=== PATIENT | male | born 1945 | race Caucasian/White ===

== ENCOUNTER → 2018-05-05 09:22 | Outpatient (CLI) | payer OTHER, SELFPAY ==
[2018-05-05 10:18] LABS: Add Manual Diff / Slide Review NO; Basophils Percent Auto 0.9 % (0-2); Eosinophils Percent Auto 5.5 % (2-4); Hematocrit 50.8 % (41-53); Lymphocytes Percent Auto 28.7 % (25-40); Mean Corpuscular HGB Conc 33.4 % (30-36); Mean Corpuscular Hemoglobin 32.5 PG (26-34); Mean Corpuscular Volume 97.2 fL (80-100); Monocytes Percent Auto 13.8 % (3-14); Neutrophils Absolute Auto 2400 /uL (3000-5900); Neutrophils Percent Auto 51.1 % (50-75); Platelet Count 156 X10^3/uL (150-400); Red Blood Cell Count 5.23 X10^6/uL (4.5-5.9); Red Cell Distribution Width 13.7 % (11.6-14.8); White Blood Cell Count 4.6 X10^3/uL (4.5-11.0)
[2018-05-05 10:21] LABS: Alanine Aminotransferase 52 IU/L (21-72); Albumin 4.3 g/dL (3.5-5.0); Albumin Globulin Ratio 1.5 (1.0-2.8); Alkaline Phosphatase 87 U/L (38-126); Aspartate Aminotransferase 48 IU/L (17-59); BUN Creatinine Ratio 26.3 (6-22); Bilirubin Total 0.6 mg/dL (0.2-1.3); Blood Urea Nitrogen 21 mg/dL (9-20); Calcium 9.5 mg/dL (8.4-10.2); Carbon Dioxide 23 mmol/L (22-32); Chloride 108 mmol/L (98-107); Estimated Glomerular Filt Rate > 60.0 mL/min (>60); Gamma Glutamyl Transpeptidase 62 U/L (15-73); Globulin 2.8 g/dL (1.7-4.1); Glucose 93 mg/dL (80-110); HEMOLYSIS < 15 (0-50); Potassium 4.1 mmol/L (3.4-5.1); Sodium 143 mmol/L (137-145); Total Protein 7.1 g/dL (6.3-8.2)
[2018-05-05 10:25] LABS: High Sensitivity CRP - Cardiac 2.9 mg/L (1.0-3.0)
[2018-05-05 10:37] LABS: B Type Natriuretic Peptide < 100.0 (<100)
[2018-05-05 10:44] LABS: Hemoglobin A1C% w Est Avg Glu 5.1 % (4.0-6.0)
[2018-05-05 10:50] LABS: Fibrinogen 286 mg/dL (211-428)
[2018-05-05 15:23] LABS: Microalbumi Creatinin Ratio Ur 6.3 ug/mg CR (<30); Microalbumin Urine Random 1.6 mg/dL (0-1.6)
[2018-05-06 15:27] LABS: Estradiol 41 pg/mL (< 40)
[2018-05-07 11:01] LABS: Albumin 4.4 g/dL (3.6-5.1); Sex Hormone Binding Globulin 32 nmol/L (22-77); Testosterone, Bioavailable 252.3 ng/dL (15.0-150.0); Testosterone, Total 811 ng/dL (250-1100); Testosterone,Free 125.3 pg/mL (6.0-73.0)
[2018-05-07 14:56] LABS: Dehydroepiandrosterone Sulfate 19 mcg/dL (5-253)
== END ==
PROVIDERS: PCP Family Medicine Sports Medicine; Visit Provider Family Medicine Sports Medicine
DX: M79.7 Fibromyalgia (principal); I10 Essential (primary) hypertension; R73.01 Impaired fasting glucose; I25.10 Atherosclerotic heart disease of native coronary artery without angina pectoris; E29.1 Testicular hypofunction; R74.0 Nonspecific elevation of levels of transaminase and lactic acid dehydrogenase [LDH]
CPT/HCPCS: 36415; 80053; 82040; 82043; 82570; 82627; 82670; 82977; 83036; 83880; 84270; 84403; 85025; 85384; 86140

== ENCOUNTER → 2018-08-06 07:01 | Outpatient (CLI) | payer OTHER, SELFPAY ==
[2018-08-06 09:37] LABS: Alanine Aminotransferase 42 IU/L (21-72); Albumin 4.1 g/dL (3.5-5.0); Albumin Globulin Ratio 1.7 (1.0-2.8); Alkaline Phosphatase 59 U/L (38-126); Aspartate Aminotransferase 44 IU/L (17-59); Bilirubin Total 0.5 mg/dL (0.2-1.3); Blood Urea Nitrogen 18 mg/dL (9-20); Calcium 9.5 mg/dL (8.4-10.2); Carbon Dioxide 26 mmol/L (22-32); Chloride 108 mmol/L (98-107); Estimated Glomerular Filt Rate 59.2 mL/min (>60); Gamma Glutamyl Transpeptidase 45 U/L (15-73); Globulin 2.4 g/dL (1.7-4.1); Glucose 89 mg/dL (80-110); HEMOLYSIS < 15 (0-50); Potassium 3.9 mmol/L (3.4-5.1); Sodium 147 mmol/L (137-145); Total Protein 6.5 g/dL (6.3-8.2)
[2018-08-06 09:41] LABS: High Sensitivity CRP - Cardiac 2.6 mg/L (1.0-3.0)
[2018-08-06 09:43] LABS: Fibrinogen 291 mg/dL (211-428)
[2018-08-06 10:28] LABS: Creatinine Urine Random 230.8 mg/dL
[2018-08-06 10:33] LABS: Microalbumi Creatinin Ratio Ur 6.9 ug/mg CR (<30); Microalbumin Urine Random 1.6 mg/dL (0-1.6)
[2018-08-08 15:22] LABS: Estradiol 16 pg/mL (< 40)
[2018-08-09 15:17] LABS: Dehydroepiandrosterone Sulfate 13 mcg/dL (5-253)
[2018-08-11 09:56] LABS: Lipoprofile NMR SEE SEPERATE REPORT
== END ==
PROVIDERS: PCP Family Medicine Sports Medicine; Visit Provider Family Medicine Sports Medicine
DX: E03.9 Hypothyroidism, unspecified (principal); E29.1 Testicular hypofunction; I25.10 Atherosclerotic heart disease of native coronary artery without angina pectoris; I10 Essential (primary) hypertension; E78.5 Hyperlipidemia, unspecified; M17.10 Unilateral primary osteoarthritis, unspecified knee; R74.0 Nonspecific elevation of levels of transaminase and lactic acid dehydrogenase [LDH]; R73.09 Other abnormal glucose
CPT/HCPCS: 36415; 80053; 80327; 82043; 82570; 82627; 82670; 82977; 83698; 83704; 83880; 84402; 84403; 84550; 85384; 86140

== ENCOUNTER → 2018-11-12 07:43 | Outpatient (CLI) | payer OTHER, SELFPAY ==
[2018-11-12 08:58] LABS: Blood Urea Nitrogen 22 mg/dL (9-20); Calcium 9.6 mg/dL (8.4-10.2); Carbon Dioxide 29 mmol/L (22-32); Chloride 108 mmol/L (98-107); Estimated Glomerular Filt Rate > 60.0 mL/min (>60); Glucose 91 mg/dL (80-110); HEMOLYSIS < 15 (0-50); Potassium 3.7 mmol/L (3.4-5.1); Sodium 146 mmol/L (137-145)
[2018-11-12 09:01] LABS: High Sensitivity CRP - Cardiac 5.4 mg/L (1.0-3.0)
[2018-11-12 09:45] LABS: Creatinine Urine Random 192.7 mg/dL
[2018-11-12 09:49] LABS: Microalbumi Creatinin Ratio Ur 12.4 ug/mg CR (<30); Microalbumin Urine Random 2.4 mg/dL (0-1.6)
[2018-11-14 14:25] LABS: Homocysteine 13.8 umol/L (< 11.4)
[2018-11-19 14:02] LABS: Testosterone Free 123.3
[2018-11-19 14:03] LABS: Testosterone Total 799
== END ==
PROVIDERS: PCP Family Medicine Sports Medicine; Visit Provider Family Medicine Sports Medicine
DX: I10 Essential (primary) hypertension (principal); E29.1 Testicular hypofunction; N18.2 Chronic kidney disease, stage 2 (mild)
CPT/HCPCS: 36415; 80048; 82043; 82570; 83090; 84402; 84403; 86140

== ENCOUNTER → 2019-01-29 12:26 | Outpatient (CLI) | payer OTHER, SELFPAY ==
--- NOTE | 2019-01-29 | DI.ECHO.S_ITS ---
[place] [facility] +---------+ : : [address] : [address] [address] : : : : [id number] : : : : Phone: [phone]---------+ Echocardiogram Report + + :Name: ALISA CARLSON Study Date: 01/29/2019 Height: 82 in : :[facility] Weight: 160 lb : : Gender: Male BSA: 2.1 m2 : :: 1945 Age: 73 yrs BP: 126/82 mmHg: :Reason For Study: Aortic valve stenosis : : Performed By: Cee Finley : :Referring: OZZIE MCKEON : + + Interpretation Summary -Mild aortic stenosis with a slightly more calcified valve without hemodynamically significant change from prior echo. -The hemodynamic data overestimate the severity of the aortic valve due to poor LVOT jet and underestimation of the LVOT diameter. Visually, the valve opens well and the maximum velocity 2.2 m/s with a mean gradient of 10 mmHg consistent with mild aortic stenosis. The area by planimetry is 1.6 farmer vegetable?. Procedure: A two-dimensional transthoracic echocardiogram with color flow and Doppler was performed. The study quality was technically adequate. Comparison is made with the echocardiogram of 09-04-16. The heart rate ranged between 53-58 bpm during the study. Left Ventricle: The left ventricle is normal in size, wall thickness, and systolic function without any focal wall motion abnormalities. The ejection fraction is estimated to be 50-55%. There are no obvious focal wall motion abnormalities noted but poor endocardial definition reduces the sensitivity for the detection of such. Diastolic parameters suggest a relaxation abnormality of the left ventricle, consistent with probable normal filling pressures. Right Ventricle: The right ventricle grossly appears normal in size with probable normal systolic function. Atria: The left atrium is moderately dilated. The right atrium is mildly dilated. There is no Doppler evidence for an interatrial shunt. Mitral Valve: The mitral valve is grossly normal. There is no mitral valve stenosis. There is mild to moderate mitral regurgitation. Aortic Valve: The aortic valve opens well. Leaflet mobility is mild to moderately reduced. The aortic valve is mildly calcified. The calculated aortic valve area is 1.15 cm2. The aortic valve area is 1.6 centimeters squared by planimetry. The peak aortic velocity is 2.2 m/sec. The aortic valve mean gradient is 10 mmHg. Severity ratio is 0.25. The peak aortic velocity on the previous exam was 2.5 m/sec. There is trace aortic regurgitation. Tricuspid Valve: The right ventricular systolic pressure is estimated to be at least 28 mmHg based on an estimated right atrial pressure of 3 mm Hg. Pulmonic Valve: The pulmonic valve is not well seen, but is grossly normal. There is trace pulmonic regurgitation. Great Vessels: The aortic root is normal size. The ascending aorta is mildly enlarged. The aortic arch is at the upper limits of normal in size. The IVC is of normal diameter and collapses greater than 50% with a sniff. This suggests a low right atrial pressure of 3 mm Hg. Pericardium/ Pleura There is no pericardial effusion. There is no pleural effusion. MMode/2D Measurements & Calculations LVIDd: 5.4 cm LVOT diam: 2.3 cm LVIDs: 3.4 cm Ao root diam: 3.5 cm FS: 37.0 % Aortic Jxn: 3.1 cm EPSS: 1.8 cm asc Aorta Diam: 3.8 cm IVSd: 1.1 cm Ao Arch Diam (Prox Trans): 3.0 cm LVPWd: 0.90 cm LV pressley. diameter/BSA (cm/m^2): 2.5 LV sys. diameter/BSA (cm/m^2): 1.6 LA dimension: 4.4 cm RA long axis: 5.8 cm LA A2 area: 28.6 cm2 RA area: 23.2 cm2 LA A4 area: 25.3 cm2 RA vol: 79.2 ml LA length (vol): 5.7 cm RA : 37.2 ml/m2 LA vol: 107.7 ml IVC diam: 1.8 cm LA vol index: 50.6 ml/m2 RVDd major: 7.1 cm RVD1 (basal): 4.2 cm RVD2 (mid): 3.8 cm MERVIN (plan): 1.5 cm2 Doppler Measurements & Calculations Ao V2 max: 215.9 cm/sec LVOT Max Cayetano: 51.3 cm/sec Ao V2 mean: 143.7 cm/sec LV V1 max P.1 mmHg Ao max P.6 mmHg LV V1 VTI: 12.9 cm Ao mean P.5 mmHg MERVIN(I,D): 1.1 cm2 Ao V2 VTI: 51.8 cm MERVIN(V,D): 1.0 cm2 sev ratio: 0.25 MERVIN indexed to BSA (cm^2/m^2): 0.51 MV E max cayetano: 55.6 cm/sec TR max cayetano: 250.3 cm/sec MV A max cayetano: 75.9 cm/sec TR max P.1 mmHg MV E/A: 0.73 PA V2 max: 59.5 cm/sec Med Peak E' Cayetano: 2.2 cm/sec PA V2 mean: 36.8 cm/sec E/E' med: 25.2 PA mean P.66 mmHg Lat Peak E' Cayetano: 5.1 cm/sec PA Accel Time: 0.12 sec E/E' lat: 11.0 E/e' average: 18.1 MV dec time: 0.30 sec MV P1/2t: 87.7 msec MR ERO: 0.07 cm2 MV P1/2t max cayetano: 55.3 cm/sec MR flow rate: 32.7 cm3/sec MVA(P1/2t): 2.5 cm2 MR PISA radius: 0.40 cm SV(LVOT): 55.8 ml Electronically signed by: Naresh Hannon M.D. on Reading Physician:01/29/2019 10:08 PM
== END ==
PROVIDERS: PCP Family Medicine Sports Medicine; Visit Provider Family Medicine Sports Medicine
DX: I08.0 Rheumatic disorders of both mitral and aortic valves (principal)
CPT/HCPCS: 93306

== ENCOUNTER → 2019-03-12 08:59 | Outpatient (CLI) | payer OTHER, SELFPAY ==
--- NOTE | 2019-03-13 16:22 | PM.PFT.1 ---
Pulmonary Function Test Referral & Results Date Patient Seen: 03/12/19 Requesting provider: Reji Car Indication: COPD Results: The spirometry demonstrates an FVC of 3.37 L which is 73% of predicted. The FEV1 was measured at 2.51 L which is 75% of predicted. The FEV1/FVC ratio was 70 for which is 101% of predicted. Following the administration of bronchodilator there was a 50% improvement in FEV1 and a 68 % improvement in FEF 25-75%. Lung volumes show an SVC of 3.51 L which is 73% of predicted. The diffusing capacity was measured at 24.29 which is 69% of predicted. No hemoglobin value was provided, so no correction for potential anemia could be made, if appropriate. Interpretation: This study demonstrates mild obstructive lung disease with evidence of limited benefit following bronchodilator based on improvement in FEV1 and FEF 25-75% There is also mild restrictive lung disease present based on reduction in lung volumes There is a mild reduction in diffusing capacity suggesting an element of disease at the capillary level as well Altogether this is consistent with a diagnosis of COPD.
== END ==
PROVIDERS: PCP Family Medicine Sports Medicine; Visit Provider Family Medicine Sports Medicine
DX: J44.9 Chronic obstructive pulmonary disease, unspecified (principal)
CPT/HCPCS: 94060; 94726; 94729

== ENCOUNTER → 2019-03-24 07:46 | Outpatient (CLI) | payer OTHER, SELFPAY ==
[2019-03-24 08:52] LABS: Add Manual Diff / Slide Review NO; Basophils Absolute Auto 0 /uL (0-100); Basophils Percent Auto 0.8 % (0-2); Eosinophils Absolute Auto 200 /uL (0-450); Eosinophils Percent Auto 4.3 % (2-4); Hemoglobin 16.5 g/dL (13.5-17.5); Lymphocytes Absolute Auto 1300 /uL (1100-4500); Lymphocytes Percent Auto 27.2 % (25-40); Mean Corpuscular HGB Conc 34.4 % (30-36); Mean Corpuscular Hemoglobin 32.5 PG (26-34); Mean Corpuscular Volume 94.5 fL (80-100); Monocytes Absolute Auto 500 /uL (0-900); Monocytes Percent Auto 11.5 % (3-14); Neutrophils Absolute Auto 2700 /uL (1500-7000); Neutrophils Percent Auto 56.2 % (50-75); Platelet Count 143 X10^3/uL (150-400); Red Blood Cell Count 5.08 X10^6/uL (4.5-5.9); Red Cell Distribution Width 14.4 % (11.6-14.8); White Blood Cell Count 4.7 X10^3/uL (4.5-11.0)
[2019-03-24 09:08] LABS: Fibrinogen 234 mg/dL (211-428)
[2019-03-24 09:21] LABS: Alanine Aminotransferase 42 IU/L (21-72); Albumin 4.4 g/dL (3.5-5.0); Albumin Globulin Ratio 1.6 (1.0-2.8); Alkaline Phosphatase 76 U/L (38-126); Aspartate Aminotransferase 51 IU/L (17-59); Bilirubin Total 0.6 mg/dL (0.2-1.3); Blood Urea Nitrogen 18 mg/dL (9-20); Calcium 9.6 mg/dL (8.4-10.2); Carbon Dioxide 27 mmol/L (22-32); Chloride 106 mmol/L (98-107); Estimated Glomerular Filt Rate > 60.0 mL/min (>60); Gamma Glutamyl Transpeptidase 46 U/L (15-73); Globulin 2.8 g/dL (1.7-4.1); Glucose 98 mg/dL (80-110); HEMOLYSIS < 15 (0-50); Potassium 3.7 mmol/L (3.4-5.1); Sodium 141 mmol/L (137-145); Total Protein 7.2 g/dL (6.3-8.2)
[2019-03-24 09:22] LABS: B Type Natriuretic Peptide < 100 (<100)
[2019-03-24 09:26] LABS: High Sensitivity CRP - Cardiac 3.4 mg/L (1.0-3.0)
[2019-03-24 09:45] LABS: Estradiol, Total 16.9 pg/mL
[2019-03-24 10:16] LABS: Free T4, Direct Thyroxine 1.06 ng/dL (0.78-2.19)
[2019-03-24 10:29] LABS: Thyroid Stimulating Hormone 2.16 uIU/mL (0.47-4.68)
[2019-03-24 16:13] LABS: Creatinine Urine Random 97.2 mg/dL
[2019-03-24 16:15] LABS: Microalbumi Creatinin Ratio Ur 8.2 ug/mg CR (<30); Microalbumin Urine Random 0.8 mg/dL (0-1.6)
[2019-03-25 13:55] LABS: Dehydroepiandrosterone Sulfate 10 mcg/dL (5-253)
[2019-03-26 00:41] LABS: Dihydrotestosterone 75 ng/dL (16-79)
[2019-03-26 12:34] LABS: Testosterone Free 150.5 pg/mL (30.0-135.0); Testosterone Total 1027 ng/dL (250-1100)
[2019-03-27 19:54] LABS: Homocysteine 18.7 umol/L (< 11.4)
== END ==
PROVIDERS: PCP Family Medicine Sports Medicine; Visit Provider Family Medicine Sports Medicine
DX: I10 Essential (primary) hypertension; E78.5 Hyperlipidemia, unspecified; R74.0 Nonspecific elevation of levels of transaminase and lactic acid dehydrogenase [LDH]; E03.9 Hypothyroidism, unspecified; I87.2 Venous insufficiency (chronic) (peripheral); R73.09 Other abnormal glucose; M79.7 Fibromyalgia; I70.90 Unspecified atherosclerosis; J44.9 Chronic obstructive pulmonary disease, unspecified
CPT/HCPCS: 36415; 80053; 80327; 82043; 82570; 82627; 82670; 82977; 83090; 83880; 84402; 84403; 84439; 84443; 85025; 85384; 86140

== ENCOUNTER 2019-04-23 10:45 | Outpatient (CLI) | payer OTHER, SELFPAY ==
--- NOTE | 2019-04-23 10:48 | DI.RAD.S_ITS ---
PROCEDURE: PAIN L/SI FACET INJ/BLK 1STL INDICATIONS: SPONDYLOSIS FINDINGS: Fluoroscopic spot filming was performed to verify placement of spinal needles at the L4, L5 and S1 level(s), as labeled on the films. Appropriate location(s) of the needle tip(s) was confirmed by injection of iodinated contrast. IMPRESSION: Fluoroscopy for pain management. Dictated by: Vilma Alston M.D. on 04/23/2019 at 15:36 Approved by: Vilma Alston M.D. on 04/23/2019 at 15:37
[2019-04-23 11:21] VITALS: BP 124/69; PULSE 54; RESP 16; TEMP 36.4; O2SAT 97
[2019-04-23 12:03] VITALS: BP 133/70; PULSE 53; RESP 16; O2SAT 99
[2019-04-23 12:05] VITALS: BP 135/64; PULSE 53; RESP 16; O2SAT 99
[2019-04-23] MEDS: BUPIVACAINE 0.5% (PF) VIAL 2 ML INJ (12:08)
[2019-04-23] MEDS: LIDOCAINE 1% 20 ML INJ 10 ML INJ (12:08)
[2019-04-23] MEDS: BETAMETHASONE 30 MG/5 ML MDV 12 MG INJ (12:09)
[2019-04-23] MEDS: IOPAMIDOL 15 ML VIAL 3 ML INJ (12:09)
[2019-04-23 12:10] VITALS: BP 136/72; PULSE 52; RESP 16; O2SAT 97
[2019-04-23 12:15] VITALS: BP 130/71; PULSE 51; RESP 16; O2SAT 97
--- NOTE | 2019-04-23 12:18 | PC.NURSE ---
pt tolerated procedure without sedation. Transferred pt awake and alert to pre procedure room via wheelchair for continued monitoring with Julienne WILSON.
--- NOTE | 2019-04-23 12:24 | PM.PROC.1 ---
Procedures Date/Time Date of procedure: 04/23/19 Time of procedure: 12:24 General Procedure description: POST OP DIAGNOSIS 1. FACET ARTHROPATHY PROCEDURES 1. Right L4, L5 and S1 MB BLOCKS PHYSICIAN: DO KADIE Malagon Augustine is referred by Dr. Arzola for treatment of Right Axial LBP. DESCRIPTION OF PROCEDURE Fluoroscopically guided, contrast-controlled right L4, L5 and S1 medial branch blocks with 0.5cc of 0.5% Marcaine. Following review of allergy and review of potential side effects and complications, including, but not necessarily limited to, infection, allergic reaction, local tissue breakdown, nerve injury, paralysis, stroke and possible , the patient indicated that the patient understood and agreed to proceed. An informed consent document was signed by the patient, witnessed by a nurse, and placed in the patient's chart. After review of previous anaesthesic history and IV conscious sedation the patient was deemed safe to proceed with todays procedure with IV conscious sedation as ASA class II designation. Safety time-out was performed to confirm patient ID, procedure to be performed and site of procedure. IV sedation was deemed unnecessary and thus not administered by the RN after DO order, titrated to patient comfort during the course of the procedure while the patient remained responsive to all verbal commands In the prone position, following sterile prep and drape of the lumbar region, the right L4, L5 and S1 anatomical location of the medial branch of the dorsal ramus was identified fluoroscopically. Subsequently an anesthetic skin wheal using 1% lidocaine solution was initiated at each of the anatomical spots. Subsequently then a 22-gauge 3.5-inch spinal needle was atraumatically introduced and advanced under fluoroscopic guidance at each of the corresponding sites at the right L4, L5 and S1 MB. After negative aspiration, 0.2 cc of Isovue 200 was injected, confirming placement without vascular or intrathecal uptake. Subsequently then 0.5 cc of 0.5% Marcaine solution was injected at each of the corresponding sites at the right L4, L5 and S1 medial branch locations. The patient tolerated the procedure well without signs or symptoms of complications. The procedure tolerated the procedure well without signs or symptoms of complications prior to transfer to the recovery area continued monitoring without incident. Post-procedure, the patient was monitored initiating provocative activities to measure the amount of relief from block of the facetogenic pain. The patient reported a VAS of 7 prior to the procedure and a post-procedure VAS of 1. It has been a pleasure to assist in the diagnostic and therapeutic care of your patient. Total Fluoroscopy Time: 24.8 seconds Total Conscious Sedation Time: 24min POST OP INSTRUCTIONS The patient was provided with a Pain Log to complete over the next several hours and subsequent days prior to the patient's follow up with the ordering physician. If the patient has mainframe systems programmer relief to the solution applied, then they may be a candidate for medial branch rhizotomy. The patient is aware, was provided, once again, with a Pain Log and will follow up with the referring physician for review and clinical correlation Rome Rob DO Complications: none
[2019-04-23 12:30] VITALS: BP 128/78; PULSE 55; RESP 16; O2SAT 100
--- NOTE | 2019-04-23 12:31 | PC.NURSE ---
PT WAS NOT GIVEN SEDATION MEDICATION. PT STEADY ON FEET AND STATES HEAD IS CLEAR.
== END 2019-04-23 12:44 | disposition home or self-care (01) ==
LOC: RAD 10:47
PROVIDERS: PCP Family Medicine Sports Medicine; Visit Provider Physical Medicine & Rehabilitation
DX: M47.816 Spondylosis without myelopathy or radiculopathy, lumbar region (principal); M47.817 Spondylosis without myelopathy or radiculopathy, lumbosacral region; M54.5 Low back pain
CPT/HCPCS: 64493; 64494; 64495; J0702; J2250; J3010

== ENCOUNTER 2019-05-21 12:34 | Outpatient (CLI) | payer OTHER, SELFPAY ==
--- NOTE | 2019-05-21 12:35 | DI.RAD.S_ITS ---
PROCEDURE: PAIN L/S MED/LAT N RFA INDICATIONS: SPONDYLOSIS FINDINGS: Fluoroscopic spot filming was performed to verify placement of spinal needles at the right L4, L5, and S1 nerve root regions are identified, as labeled on the films. Appropriate location(s) of the needle tip(s) was confirmed by injection of iodinated contrast. IMPRESSION: Needle localization appropriate at the L4, L5 and S1 levels on the right. Dictated by: Natanael Dempsey M.D. on 05/21/2019 at 16:18 Approved by: Natanael Dempsey M.D. on 05/21/2019 at 16:20
[2019-05-21 13:07] VITALS: BP 114/68; PULSE 56; RESP 16; TEMP 36.5; O2SAT 95
--- NOTE | 2019-05-21 13:53 | P.PCN_ITS ---
Procedures Date/Time Date of procedure: 05/21/19 Time of procedure: 13:51 General Procedure description: PREOP DIAGNOSIS 1. RECALCITRANT FACET ARTHROPATHY, POST OP DIAGNOSIS 1. RECALCITRANT FACET ARTHROPATHY, PROCEDURES 1. RIGHT L4 AND L5 MEDIAL BRANCH RADIOFREQUENCY NEUROTOMY AND RIGHT S1 DORSAL RAMUS BRANCH RADIOFREQUENCY NEUROTOMY, SURGEON: Rome Rob DO INDICATIONS Hernandez is referred by for treatment of facet arthropathy. DESCRIPTION OF PROCEDURE Right L4 and L5 medial branch radiofrequency neurotomy and right S1 dorsal ramus branch radiofrequency neurotomy under fluoroscopy with conscious sedation. The patient is well known to this clinic having undergone previous facet injections with good but temporary relief. The patient has experienced appropriate, concordant relief with previous facet and median branch blocks but the patient's pain has been recalcitrant to further conservative measures. Therefore, based upon the patient's relief and persistent symptoms, the patient is considered an appropriate candidate for facet rhizotomy. All of the patient's questions regarding the risks versus benefits of the procedure, including, but not limited to, bleeding, infection, temporary as well as lasting nerve injury, paralysis, stroke, and , as well treatment alternatives were answered to satisfaction. After review of previous anaesthesic history and IV conscious sedation the patient was deemed safe to proceed with todays procedure with IV conscious sedation as ASA class II designation. Safety time-out was performed to confirm patient ID, procedure to be performed and site of procedure. IV sedation was deemed unnecessary and thus not administered by the RN after DO order, titrated to patient comfort during the course of the procedure while the patient remained responsive to all verbal commands. After obtaining informed consent, denial of pertinent drug allergies, as well as being made aware of the potential risks of bleeding, infection, spinal cord trauma, paralysis, temporary and permanent nerve damage, seizure, stroke, and possible , the patient was brought to the fluoroscopy suite and positioned prone on the fluoroscopy table. The lumbar region was prepped with Betadine and covered with a fenestrated drape in the usual sterile fashion. Appropriate monitors applied including pulse oximeter, pulse, and blood pressure for regular monitoring throughout the procedure. After local infiltration using 1% lidocaine, under fluoroscopic guidance, a 10- cm RF insulated needle with a 10-mm active tip was positioned parallel to the junction of the right sacral ala and the superior articulating process where the S1 dorsal ramus resides. Needle placement was confirmed with sensory stimulation at 50 Hz, with motor stimulation of .5v on the right which produced local stimulation without radicular component. The stimulation was then increased to 1.5v with, once again, only local multifidus stimulation without radicular component. This was then followed by two discreet lesions performed at 80 degrees Celsius for 90 seconds each. The needle was then removed and the identical procedure was performed along the length of the right L5 medial branch with motor stimulation at .7v on the right. The identical procedure was once again performed along the length of the right L4 medial branch with motor stimulation of .5v on the right. The patient tolerated the procedure well without signs or symptoms of complications prior to transfer to the recovery area continued monitoring without incident. The patient was then transferred to the recovery area where they were observed for an appropriate period of time after the injection. The patient was then transferred to the recovery area where they were observed for an appropriate period of time after the injection. The patient reported a VAS score of 9 prior to the procedure and a post- procedure VAS of 0. Total Fluoroscopy Time: 31 seconds Total Conscious Sedation Time: 45min POST OP INSTRUCTIONS The patient was provided a Pain Log to continue to record the patient's response to the target-specific procedure prior to the patient's follow-up visit with the referring physician. Additionally, specific post-injection care instructions and a contact number to our office were provided if concerns arise regarding possible complications associated with the procedure are suspected. Rome Rob DO Complications: none
[2019-05-21 13:55] VITALS: BP 144/78; PULSE 58; RESP 16; O2SAT 95
[2019-05-21 14:00] VITALS: BP 143/102; PULSE 58; RESP 16; O2SAT 96
[2019-05-21] MEDS: BUPIVACAINE 0.5% (PF) VIAL 5 ML INJ (14:00)
[2019-05-21] MEDS: LIDOCAINE 1% 20 ML INJ 10 ML INJ (14:00)
[2019-05-21] MEDS: BETAMETHASONE 30 MG/5 ML MDV 12 MG INJ (14:01)
[2019-05-21 14:05] VITALS: BP 143/72; PULSE 57; RESP 16; O2SAT 97
[2019-05-21 14:10] VITALS: BP 140/77; PULSE 56; RESP 16; O2SAT 95
--- NOTE | 2019-05-21 14:15 | PC.NURSE ---
pt tolerated procedure well without sedation. Pt able to get off table with standby assist. Transferred pt to pre procedure room for continued monitoring with Julienne
[2019-05-21 14:26] VITALS: BP 140/86; PULSE 59; RESP 16; O2SAT 95
== END 2019-05-21 14:29 | disposition home or self-care (01) ==
LOC: RAD 12:35
PROVIDERS: PCP Family Medicine Sports Medicine; Visit Provider Physical Medicine & Rehabilitation
DX: M47.27 Other spondylosis with radiculopathy, lumbosacral region (principal); M51.37 Other intervertebral disc degeneration, lumbosacral region; M47.817 Spondylosis without myelopathy or radiculopathy, lumbosacral region; M99.83 Other biomechanical lesions of lumbar region
CPT/HCPCS: 64635; 64636; J0702; J2250; J3010

== ENCOUNTER → 2019-08-17 09:44 | Outpatient (CLI) | payer OTHER, SELFPAY ==
[2019-08-17 12:19] LABS: Add Manual Diff / Slide Review NO; Basophils Absolute Auto 0 /uL (0-100); Basophils Percent Auto 1.1 % (0-2); Eosinophils Absolute Auto 200 /uL (0-450); Eosinophils Percent Auto 3.8 % (2-4); Hematocrit 44.9 % (41-53); Hemoglobin 15.2 g/dL (13.5-17.5); Lymphocytes Absolute Auto 1000 /uL (1100-4500); Lymphocytes Percent Auto 23.1 % (25-40); Mean Corpuscular HGB Conc 33.9 % (30-36); Mean Corpuscular Hemoglobin 33.3 PG (26-34); Mean Corpuscular Volume 98.2 fL (80-100); Monocytes Absolute Auto 700 /uL (0-900); Monocytes Percent Auto 14.5 % (3-14); Neutrophils Absolute Auto 2600 /uL (1500-7000); Neutrophils Percent Auto 57.5 % (50-75); Platelet Count 156 X10^3/uL (150-400); Red Blood Cell Count 4.57 X10^6/uL (4.5-5.9); Red Cell Distribution Width 12.9 % (11.6-14.8); White Blood Cell Count 4.5 X10^3/uL (4.5-11.0)
[2019-08-17 12:37] LABS: Alanine Aminotransferase 37 IU/L (21-72); Albumin 4.4 g/dL (3.5-5.0); Albumin Globulin Ratio 1.6 (1.0-2.8); Alkaline Phosphatase 71 U/L (38-126); Aspartate Aminotransferase 55 IU/L (17-59); Bilirubin Total 0.9 mg/dL (0.2-1.3); Blood Urea Nitrogen 21 mg/dL (9-20); Calcium 9.7 mg/dL (8.4-10.2); Carbon Dioxide 27 mmol/L (22-32); Chloride 105 mmol/L (98-107); Creatine Kinase 66 U/L (55-170); Estimated Glomerular Filt Rate > 60.0 mL/min (>60); Globulin 2.7 g/dL (1.7-4.1); Glucose 99 mg/dL (80-110); HEMOLYSIS < 15 (0-50); Potassium 3.9 mmol/L (3.4-5.1); Sodium 142 mmol/L (137-145); Total Protein 7.1 g/dL (6.3-8.2)
[2019-08-17 12:40] LABS: High Sensitivity CRP - Cardiac 2.8 mg/L (1.0-3.0)
[2019-08-17 12:41] LABS: Fibrinogen 253 mg/dL (211-428)
[2019-08-17 12:52] LABS: Free T3, Triiodothyronine Free 3.99 pg/mL (2.77-5.27); Free T4, Direct Thyroxine 1.23 ng/dL (0.78-2.19)
[2019-08-17 13:06] LABS: Thyroid Stimulating Hormone 2.72 uIU/mL (0.47-4.68)
[2019-08-17 13:23] LABS: Vitamin B12 879 pg/mL (239-931)
[2019-08-17 15:16] LABS: Creatinine Urine Random 186.1 mg/dL
[2019-08-17 15:20] LABS: Microalbumin Urine Random 1.5 mg/dL (0-1.6)
[2019-08-17 15:29] LABS: Vitamin D 25 Hydroxy (D3) 69.3 ng/mL (30.0-100.0)
[2019-08-21 15:53] LABS: Triiodothyronine T3 Reverse 14 ng/dL (8-25)
[2019-08-21 16:41] LABS: Homocysteine 12.4 umol/L (< 11.4)
[2019-08-22 16:03] LABS: NT-proBNP (Child <18years) 409 pg/mL
== END ==
PROVIDERS: PCP Family Medicine Sports Medicine; Visit Provider Family Medicine Sports Medicine
DX: I65.29 Occlusion and stenosis of unspecified carotid artery (principal); I10 Essential (primary) hypertension; G47.00 Insomnia, unspecified; R73.09 Other abnormal glucose; E03.9 Hypothyroidism, unspecified; E29.1 Testicular hypofunction; E78.5 Hyperlipidemia, unspecified; E72.11 Homocystinuria; J44.9 Chronic obstructive pulmonary disease, unspecified
CPT/HCPCS: 36415; 80053; 82043; 82306; 82550; 82570; 82607; 82728; 83036; 83090; 83735; 83880; 84402; 84403; 84439; 84443; 84481; 84482; 85025; 85384; 86140

== ENCOUNTER → 2019-09-09 12:17 | Outpatient (CLI) | payer OTHER, SELFPAY ==
--- NOTE | 2019-09-09 | DI.RAD.S_ITS ---
PROCEDURE: XR CHEST 2V INDICATIONS: XR CHEST CHROSNIC COUGH TECHNIQUE: 2 views of the chest were acquired. COMPARISON: [facility], , CHEST 2 VIEW, 01/18/2017, 12:11. FINDINGS: Surgical changes and devices: None. Lungs and pleura: Lungs are clear. No pleural effusions or pneumothorax. Mediastinum: Mediastinal contours are normal. Heart size is minimally prominent. Bones and chest wall: No suspicious bony abnormalities. Soft tissues appear unremarkable. IMPRESSION: No acute pulmonary process. Dictated by: Patrizia Prieto M.D. on 09/09/2019 at 15:36 Approved by: Patrizia Prieto M.D. on 09/09/2019 at 15:37
== END ==
PROVIDERS: PCP Family Medicine Sports Medicine; Visit Provider Family Medicine Sports Medicine
DX: R05 Cough (principal)
CPT/HCPCS: 71046

== ENCOUNTER 2019-11-03 10:30 | Outpatient (RCR) | payer OTHER, SELFPAY ==
--- NOTE | 2019-10-07 13:45 | PT.OIE ---
Current Diagnoses Unilateral primary osteoarthritis, right knee (10/06/19) Visit Care Team Role Provider Type Reji Car DO Attending Provider Non-Staff Primary Care Provider Specialty: Medical Address: [address] [place] [address], [phone] Email: Physical Therapy Initial Evaluation PT-OP-A Visit Information Start: 10/07/19 13:21 Freq: Status: Active Protocol: Document 10/06/19 11:15 [facility] (Rec: 10/07/19 13:45 [facility] [id number]) Out-Patient Physical Therapy Visit Information Visit Information Visit Type Initial Evaluation Visit Start Time 11:15 Visit Stop Time 12:00 Total Visit Minutes 45 Visit Number 1 PT-OP-B Current Condition Start: 10/07/19 13:21 Freq: Status: Active Protocol: Document 10/06/19 11:15 [facility] (Rec: 10/07/19 13:45 [facility] [id number]) Current Condition History of Current Condition Onset Date on going right sided knee pain Current Complaints right sided knee pain and pre PT prior to partial knee replacement History of Current Condition Hernandez is beign seen in PT today for pre stretgthening for his right knee prior to partial knee replacment. He has a history of left TKA 5 years ago which he feels he is 80% improved from. Hernandez reports atrophy in the right quad and feels as if he drags his right leg when going up stairs. Future Testing and Treatments Planned right partial knee replacement Treatment Goals Patient/Caregiver Goals the patients goals include learning exercises he can do preoperatively prior to surgery Current Functional Impairments (Reported) Functional Limitations- Other limited in walking greater than a few blocks, moderate difficulty with squatting and going up and down stairs PT-OP-C Subjective Start: 10/07/19 13:21 Freq: Status: Active Protocol: Document 10/06/19 11:15 [facility] (Rec: 10/07/19 13:45 [facility] [id number]) OP-PT Pain Assessment Location right medial knee Intensity 6 Scale Used Numeric (1 - 10) PT-OP-F Manual Assessment Start: 10/07/19 13:21 Freq: Status: Active Protocol: Document 10/06/19 11:15 [facility] (Rec: 10/07/19 13:45 [facility] [id number]) Manual Assessments Soft Tissue Assessment Soft Tissue Mobility Assessment tightness of the ITB and quads on the right Joint Mobility Assessment Joint Mobility Assessment righty knee limited in extension by 15 degrees and limited in end range flexion PT-OP-G Mobility & Gait Start: 10/07/19 13:21 Freq: Status: Active Protocol: Document 10/06/19 11:15 [facility] (Rec: 10/07/19 13:45 [facility] [id number]) OP Gait Assessment Gait Gait Assistance Required: Independent Gait Deviations General Gait Pattern Antalgic Comments Gait Comments worked with a cane in the left hand for walking and this did help Hernandez. PT-OP-J Posture/Palpation/Skin Start: 10/07/19 13:21 Freq: Status: Active Protocol: Document 10/06/19 11:15 [facility] (Rec: 10/07/19 13:45 [facility] [id number]) Palpation Assessment Location right medial knee Palpation Location pain along the medial joint line of the right knee Palpation Findings Tenderness PT-OP-K Range of Motion Start: 10/07/19 13:21 Freq: Status: Active Protocol: Document 10/06/19 11:15 [facility] (Rec: 10/07/19 13:45 [facility] [id number]) Knee Goniometric Range of Motion Knee Left Knee ROM WFL No Flexion Active (degrees) 125 Extension Passive (degrees) 8 Right Knee ROM WFL No Patient Position Supine Flexion Active (degrees) 122 Extension Active (degrees) 15 PT-OP-M Strength Start: 10/07/19 13:21 Freq: Status: Active Protocol: Document 10/06/19 11:15 [facility] (Rec: 10/07/19 13:45 [facility] [id number]) Knee Strength Knee Manual Muscle Testing Left Flexion (S2) 4 Good Extension (L3) 4 Good Right Flexion (S2) 3+ Fair+ Extension (L3) 2+ Poor+ Reason Not Measured Pain PT-OP-Q Treatments Start: 10/07/19 13:21 Freq: Status: Active Protocol: Document 10/06/19 11:15 [facility] (Rec: 10/07/19 13:45 [facility] [id number]) Gym Equipment Shuttle Recovery Bilateral Squats Details shuttle bilateral squats Resistance 50# Shuttle Recovery Platform Stable Reps/Time 3 x 10 Therapeutic Exercises Supine Exercises HS sets Side right Reps/Minutes 10 reps x 5 second hold time SLR Side right Reps/Minutes 2 x 10 reps quad sets Side right Reps/Minutes 2 x 10 reps 2 Supine Exercise Name ITB stretch with strap 1 Supine Exercise Name iliopsoas/quad stretch in gretel test position Side right Reps/Minutes hold x 30 seconds PT-OP-T Assessment and Plan Start: 10/07/19 13:21 Freq: Status: Active Protocol: Document 10/06/19 11:15 [facility] (Rec: 10/07/19 13:45 [facility] [id number]) Physical Therapy Assessment Rehab Potential Rehabilitation Potential Excellent Evaluation Complexity Number of Personal Factors/Comorbidities 0 Number of Body Systems Impaired 1-2 Clinical Presentation at Evaluation Stable Impairments Impairments Activity Tolerance,Balance, Functional Activities, Functional Mobility,Gait,Pain, ROM,Tone Goals Three Impairment antalgic gait pattern with decreased weightbearing throught the right knee Short Term Goal (STG) Hernandez is educated in gait training with a single point cane to off load pressure on his right knee with walking STG Duration 4 weeks Two Impairment pain with quad squeeze due to joint compression and quad tightness Short Term Goal (STG) Hernandez is educated on a home flexibility program for his LE to assist with his strengthening STG Duration 4 weeks 1 Impairment pt lacks a pre partial knee repalcement strengthening program Short Term Goal (STG) Hernandez is educated in a home execise program for prehabilitation of his right knee STG Duration 4 weeks Assessment Summary Assessment Hernandez presents to physical therapy today for prehabilitation prior to his right medial knee replacement surgery. He is limited in knee extension on the right by 15 degrees and is also limited with end range knee flexion. He is quite tight in his ITB and quads on the right so along with strengthening I gave him stretches today. He is a good candidate for prehabilitation prior to partial right medial knee replacement Physical Therapy Plan Frequency and Duration Frequency of Treatment 4x/Week Duration of Treatment 6 weeks Plan of Care Start Date 10/06/19 Plan of Care End Date 11/17/19 Therapeutic Interventions Therapeutic Interventions Balance Training,Gait Training ,Home Exercise Program,Manual Therapy,Neuromuscular Re- education,Patient/Caregiver Education,Self-Care/Home Management,Soft Tissue Mobilization,Therapeutic Exercises Next Visit Focus/Plan Next Note Type Treatment Note Next Visit Plan review HEP given to patient and progress to lateral hip stabilization exercises. Trial of warm up on the bike
--- NOTE | 2019-10-14 14:09 | PT.OTN ---
Current Diagnoses Unilateral primary osteoarthritis, right knee (10/14/19) Physical Therapy Treatment Note PT-OP-A Visit Information Start: 10/07/19 13:21 Freq: Status: Active Protocol: Document 10/14/19 14:00 [facility] (Rec: 10/14/19 14:09 [facility] [id number]) Out-Patient Physical Therapy Visit Information Visit Information Visit Type Treatment Note Visit Start Time 10:30 Visit Stop Time 11:15 Total Visit Minutes 45 Visit Number 2 PT-OP-B Current Condition Start: 10/07/19 13:21 Freq: Status: Active Protocol: Document 10/06/19 11:15 [facility] (Rec: 10/07/19 13:45 [facility] [id number]) Current Condition History of Current Condition Onset Date on going right sided knee pain Current Complaints right sided knee pain and pre PT prior to partial knee replacement History of Current Condition Hernandez is beign seen in PT today for pre stretgthening for his right knee prior to partial knee replacment. He has a history of left TKA 5 years ago which he feels he is 80% improved from. Hernandez reports atrophy in the right quad and feels as if he drags his right leg when going up stairs. Future Testing and Treatments Planned right partial knee replacement Treatment Goals Patient/Caregiver Goals the patients goals include learning exercises he can do preoperatively prior to surgery Current Functional Impairments (Reported) Functional Limitations- Other limited in walking greater than a few blocks, moderate difficulty with squatting and going up and down stairs PT-OP-C Subjective Start: 10/07/19 13:21 Freq: Status: Active Protocol: Document 10/14/19 14:00 [facility] (Rec: 10/14/19 14:09 [facility] [id number]) OP-PT Subjective Patient Comments Patient Comments pt reports he did well with with his home program this last week PT-OP-F Manual Assessment Start: 10/07/19 13:21 Freq: Status: Active Protocol: Document 10/06/19 11:15 [facility] (Rec: 10/07/19 13:45 [facility] [id number]) Manual Assessments Soft Tissue Assessment Soft Tissue Mobility Assessment tightness of the ITB and quads on the right Joint Mobility Assessment Joint Mobility Assessment righty knee limited in extension by 15 degrees and limited in end range flexion PT-OP-G Mobility & Gait Start: 10/07/19 13:21 Freq: Status: Active Protocol: Document 10/06/19 11:15 [facility] (Rec: 10/07/19 13:45 [facility] [id number]) OP Gait Assessment Gait Gait Assistance Required: Independent Gait Deviations General Gait Pattern Antalgic Comments Gait Comments worked with a cane in the left hand for walking and this did help Hernandez. PT-OP-J Posture/Palpation/Skin Start: 10/07/19 13:21 Freq: Status: Active Protocol: Document 10/06/19 11:15 [facility] (Rec: 10/07/19 13:45 [facility] [id number]) Palpation Assessment Location right medial knee Palpation Location pain along the medial joint line of the right knee Palpation Findings Tenderness PT-OP-K Range of Motion Start: 10/07/19 13:21 Freq: Status: Active Protocol: Document 10/06/19 11:15 [facility] (Rec: 10/07/19 13:45 [facility] [id number]) Knee Goniometric Range of Motion Knee Left Knee ROM WFL No Flexion Active (degrees) 125 Extension Passive (degrees) 8 Right Knee ROM WFL No Patient Position Supine Flexion Active (degrees) 122 Extension Active (degrees) 15 PT-OP-M Strength Start: 10/07/19 13:21 Freq: Status: Active Protocol: Document 10/06/19 11:15 [facility] (Rec: 10/07/19 13:45 [facility] [id number]) Knee Strength Knee Manual Muscle Testing Left Flexion (S2) 4 Good Extension (L3) 4 Good Right Flexion (S2) 3+ Fair+ Extension (L3) 2+ Poor+ Reason Not Measured Pain PT-OP-Q Treatments Start: 10/07/19 13:21 Freq: Status: Active Protocol: Document 10/14/19 14:00 [facility] (Rec: 10/14/19 14:09 [facility] [email or web address]) Cardio Equipment Recumbent Elliptical ([employer]) Duration (Minutes) 5 Other level 1 Therapeutic Exercises Supine Exercises HS sets Side right Reps/Minutes 10 reps x 5 second hold time SLR Side right Reps/Minutes 2 x 10 reps quad sets Side right Reps/Minutes 2 x 10 reps 1 Supine Exercise Name iliopsoas/quad stretch in gretel test position Side right Reps/Minutes hold x 30 seconds Prone Exercises 1 Prone Exercise Name prone quad stretch Sidelying Exercises 1 Sidelying Exercise Name sidelying clam shells Reps/Minutes 3 x 10 reps Standing Exercises standing calf stretch Reps/Minutes 30 second hold Other Exercises sit-stand Other Exercise Name sit to stand exercise Reps/Minutes x 10 reps PT-OP-T Assessment and Plan Start: 10/07/19 13:21 Freq: Status: Active Protocol: Document 10/14/19 14:00 [facility] (Rec: 10/14/19 14:09 [facility] [email or web address]) Physical Therapy Assessment Assessment Summary Assessment good tolerance for addition of new exercises today. Worked on warming up the muscle first prior to strengthening to help decrease the compression on his knee. He would like one additional PT visit to review all his exercises. Physical Therapy Plan Frequency and Duration Frequency of Treatment 1x/Week Duration of Treatment 6 weeks Plan of Care Start Date 10/06/19 Plan of Care End Date 11/17/19 Therapeutic Interventions Therapeutic Interventions Balance Training,Gait Training ,Home Exercise Program,Manual Therapy,Neuromuscular Re- education,Patient/Caregiver Education,Self-Care/Home Management,Soft Tissue Mobilization,Therapeutic Exercises Next Visit Focus/Plan Next Note Type Treatment Note Next Visit Plan review all established home exercises and remeasure right knee ROM
--- NOTE | 2019-11-03 12:57 | PT.OTN ---
Current Diagnoses Unilateral primary osteoarthritis, right knee (11/03/19) Physical Therapy Treatment Note PT-OP-A Visit Information Start: 10/07/19 13:21 Freq: Status: Active Protocol: Document 11/03/19 12:46 [facility] (Rec: 11/03/19 12:57 [facility] [email or web address]) Out-Patient Physical Therapy Visit Information Visit Information Visit Type Treatment Note Visit Start Time 10:30 Visit Stop Time 11:15 Total Visit Minutes 45 Visit Number 3 PT-OP-B Current Condition Start: 10/07/19 13:21 Freq: Status: Active Protocol: Document 10/06/19 11:15 [facility] (Rec: 10/07/19 13:45 [facility] [id number]) Current Condition History of Current Condition Onset Date on going right sided knee pain Current Complaints right sided knee pain and pre PT prior to partial knee replacement History of Current Condition Hernandez is beign seen in PT today for pre stretgthening for his right knee prior to partial knee replacment. He has a history of left TKA 5 years ago which he feels he is 80% improved from. Hernandez reports atrophy in the right quad and feels as if he drags his right leg when going up stairs. Future Testing and Treatments Planned right partial knee replacement Treatment Goals Patient/Caregiver Goals the patients goals include learning exercises he can do preoperatively prior to surgery Current Functional Impairments (Reported) Functional Limitations- Other limited in walking greater than a few blocks, moderate difficulty with squatting and going up and down stairs PT-OP-C Subjective Start: 10/07/19 13:21 Freq: Status: Active Protocol: Document 11/03/19 12:46 [facility] (Rec: 11/03/19 12:57 [facility] [email or web address]) OP-PT Subjective Patient Comments Patient Comments pt reports he is sore the next day after doing his exercises . He also notes the quad stretch on his stomach is difficult to do without hurting his back. He feels independent with the other exercises until he has his knee replacement PT-OP-F Manual Assessment Start: 10/07/19 13:21 Freq: Status: Active Protocol: Document 10/06/19 11:15 [facility] (Rec: 10/07/19 13:45 [facility] [id number]) Manual Assessments Soft Tissue Assessment Soft Tissue Mobility Assessment tightness of the ITB and quads on the right Joint Mobility Assessment Joint Mobility Assessment righty knee limited in extension by 15 degrees and limited in end range flexion PT-OP-G Mobility & Gait Start: 10/07/19 13:21 Freq: Status: Active Protocol: Document 10/06/19 11:15 [facility] (Rec: 10/07/19 13:45 [facility] [id number]) OP Gait Assessment Gait Gait Assistance Required: Independent Gait Deviations General Gait Pattern Antalgic Comments Gait Comments worked with a cane in the left hand for walking and this did help Hernandez. PT-OP-J Posture/Palpation/Skin Start: 10/07/19 13:21 Freq: Status: Active Protocol: Document 10/06/19 11:15 [facility] (Rec: 10/07/19 13:45 [facility] [id number]) Palpation Assessment Location right medial knee Palpation Location pain along the medial joint line of the right knee Palpation Findings Tenderness PT-OP-K Range of Motion Start: 10/07/19 13:21 Freq: Status: Active Protocol: Document 10/06/19 11:15 [facility] (Rec: 10/07/19 13:45 [facility] [id number]) Knee Goniometric Range of Motion Knee Left Knee ROM WFL No Flexion Active (degrees) 125 Extension Passive (degrees) 8 Right Knee ROM WFL No Patient Position Supine Flexion Active (degrees) 122 Extension Active (degrees) 15 PT-OP-M Strength Start: 10/07/19 13:21 Freq: Status: Active Protocol: Document 10/06/19 11:15 [facility] (Rec: 10/07/19 13:45 [facility] [id number]) Knee Strength Knee Manual Muscle Testing Left Flexion (S2) 4 Good Extension (L3) 4 Good Right Flexion (S2) 3+ Fair+ Extension (L3) 2+ Poor+ Reason Not Measured Pain PT-OP-Q Treatments Start: 10/07/19 13:21 Freq: Status: Active Protocol: Document 11/03/19 12:46 [facility] (Rec: 11/03/19 12:57 [facility] [email or web address]) Cardio Equipment Bicycle (Upright) Duration (Minutes) 8 Seat Position 7 Gym Equipment Shuttle Recovery Unilateral Squats Details unilateral squats Resistance 25# Reps/Time 3 x 10 reps Bilateral Squats Details shuttle bilateral squats Resistance 50# Shuttle Recovery Platform Stable Reps/Time 3 x 10 Therapeutic Exercises Supine Exercises SLR Side right Reps/Minutes 2 x 10 reps quad sets Side right Reps/Minutes 2 x 10 reps 1 Supine Exercise Name iliopsoas/quad stretch in gretel test position Side right Reps/Minutes hold x 30 seconds Sidelying Exercises 1 Sidelying Exercise Name sidelying clam shells Reps/Minutes 3 x 10 reps Comments used level 2 theraband Standing Exercises 1 Standing Exercise Name standing quad stretch using a chair standing calf stretch Reps/Minutes 30 second hold Other Exercises sit-stand Other Exercise Name sit to stand exercise Reps/Minutes x 10 reps PT-OP-T Assessment and Plan Start: 10/07/19 13:21 Freq: Status: Active Protocol: Document 11/03/19 12:46 [facility] (Rec: 11/03/19 12:57 [facility] [email or web address]) Physical Therapy Assessment Assessment Summary Assessment Hernandez did much better with a standing quad stretch today. He is feeling good about all his exercises and will be discharged at this time Physical Therapy Plan Discharge Physical Therapy Discharge Reasons Goals Met Discharge Comments DC PT until pt has his knee replacement and then we will start up PT again
== END 2019-11-12 12:10 ==
LOC: PHYS 10:30
PROVIDERS: PCP Family Medicine Sports Medicine; Visit Provider Family Medicine Sports Medicine
DX: M17.11 Unilateral primary osteoarthritis, right knee (principal)
CPT/HCPCS: 97110; 97161

== ENCOUNTER 2019-11-10 08:53 | Day surgery (SDC) | payer OTHER, SELFPAY ==
[2019-11-10] MEDS: PROPARACAINE 0.5% OPHTH SOL 2 DROPS EYE-OP (09:37)
[2019-11-10] MEDS: CATARACT EYE COMPOUND (10 DROPS/SYRINGE) 3 DROPS EYE-OP (09:37)
[2019-11-10 09:44] VITALS: BP 120/72; PULSE 57; RESP 16; TEMP 36.7; O2SAT 97; BMI 23.0
--- NOTE | 2019-11-10 10:59 | PM.PREOP ---
Pre-operative Note Interval Note History & Physical reviewed/Exam performed by Physician: No Changes to H&P: No
--- NOTE | 2019-11-10 10:59 | PM.OP.1 ---
Operative Date/Time/Diagnoses Pre-op diagnosis: Nuclear cataract right eye Procedure & Clinicians Procedure: Cataract Surgery Same procedure as scheduled: Yes Surgeon: Antonio Romo Anesthesia Type: MAC +/- and Sedation Operative Notes Procedure in detail: Patient brought to the operating suite. Tetracaine drops placed in the right eye. Marking instrument was used to vinny vertical and horizontal meridain. Patient was prepped and draped in sterile manner. Wire lid speculum was placed in the eye. Marking instrument was used to vinny 10 degree meridian. Betadine drops were placed on the eye. This was irrigated. Lidocaine jelly was placed on the eye. A paracentesis port was created with a side-port blade. 0.1 mL 1% preservative free lidocaine was injected into the anterior chamber. The anterior chamber was deepened with viscoelastic. 2.6 mm keratome was used to create a temporal clear corneal incision. Cystotome and Utrata forceps were used to create continuous tear capsulorrhexis. Balanced salt solution was used to hydro dissect the nucleus. The phacoemulsification handpiece was inserted and the nucleus was removed using the stop and chop technique. The irrigation aspiration handpiece was inserted and the remaining cortex was removed. Anterior chamber was deepened with viscoelastic. An Ruiz [id number] intraocular lens with a power of 21.5 was injected into the capsular bag. Irrigation aspiration handpiece was inserted and the remaining viscoelastic was removed. The lens was rotated to the 10 degree meridian. Incision was hydrated with balanced salt solution and found to be leak free with pressure with Weck-Grace sponges. 0.1 mL Vigamox injected anterior chamber. 0.3 mL Kenalog 10 mg was injected subconjunctivally. Lid speculum was removed. The patient left the operating room in excellent condition. Complications: none Post-operative Condition: stable Disposition: same day surgery
[2019-11-10] MEDS: PHENYLEPHRINE/LIDOCAINE VIAL (OR) 0.2 ML EYE-OP (11:14)
[2019-11-10] MEDS: MOXIFLOXACIN INJ 5 MG/ML VIAL EYE-OP (11:14)
[2019-11-10] MEDS: TRIAMCINOLONE 50 MG/5 ML VIAL INJ (11:14)
[2019-11-10] MEDS: TETRACAINE 0.5% OPHTH DROPS 4 ML 2 DROPS EYE-OP (11:15)
[2019-11-10] MEDS: BALANCED SALT IRRIG SOLN NO.2 500 ML, EPINEPHrine 1 MG IRR (11:15)
[2019-11-10] MEDS: CHONDROIDTIN/SOD HYALURONATE 1.05 ML SYRINGE INTRAOCULA (11:15)
[2019-11-10] MEDS: LIDOCAINE JELLY 2% 5 ML 1 APPLIC TOP (11:15)
[2019-11-10 11:26] VITALS: BP 133/78; PULSE 62; RESP 15; TEMP 36.6; O2SAT 96
--- NOTE | 2019-11-10 11:32 | SUR.PHASEII ---
Patient A/O. Denies pain/nausea. Discharge instructions went over with patient.
== END 2019-11-10 11:35 | disposition home or self-care (01) ==
PROVIDERS: PCP Family Medicine Sports Medicine; Visit Provider Ophthalmology
PROC: (CPT 66984; principal; 2019-11-10 10:45)
DX: H25.11 Age-related nuclear cataract, right eye (principal); I10 Essential (primary) hypertension; G51.0 Bell's palsy
CPT/HCPCS: 66984; J0171; J2250; J3010; J3301; V2787

== ENCOUNTER 2019-11-19 12:16 | Outpatient (CLI) | payer OTHER, SELFPAY ==
--- NOTE | 2019-11-19 12:18 | DI.RAD.S_ITS ---
PROCEDURE: PAIN L/S TRANSFORAMINAL INJECT INDICATIONS: SPONDYLOSIS FINDINGS: Fluoroscopic spot filming was performed to verify placement of spinal needles at the L4-L5 level(s), as labeled on the films. Appropriate location(s) of the needle tip(s) was confirmed by injection of iodinated contrast. Dictated by: Mulugeta Schmidt M.D. on 11/19/2019 at 15:14 Approved by: Mulugeta Schmidt M.D. on 11/19/2019 at 15:14
[2019-11-19 13:06] VITALS: BP 117/67; PULSE 56; RESP 16; TEMP 36.3; O2SAT 95
[2019-11-19 13:41] VITALS: BP 155/77; PULSE 59; RESP 16; O2SAT 97
--- NOTE | 2019-11-19 13:45 | PC.NURSE ---
Intraprocedure note: No IV okayed per provider during procedure. VSS. Patient positioned in prone position. Patient requested no sedation.
[2019-11-19 13:54] VITALS: BP 164/84; PULSE 57; RESP 16; O2SAT 96
[2019-11-19] MEDS: DEXAMETHASONE 10 MG/ML VIAL 20 MG INJ (13:55)
[2019-11-19] MEDS: BETAMETHASONE 30 MG/5 ML MDV 6 MG INJ (13:55)
[2019-11-19] MEDS: IOPAMIDOL 15 ML VIAL 3 ML INJ (13:55)
[2019-11-19] MEDS: BUPIVACAINE 0.25% (PF) VIAL 2 ML INJ (13:55)
--- NOTE | 2019-11-19 13:57 | P.PCN_ITS ---
Procedures Date/Time Date of procedure: 11/19/19 Time of procedure: 13:57 General Procedure description: PREOP DIAGNOSIS 1. FORMAINAL STENOSIS WITH LE SYMPTOMS POST OP DIAGNOSIS 1. FORMAINAL STENOSIS WITH LE SYMPTOMS PROCEDURES 1. FLUOROSCOPICALLY GUIDED CONTRAST CONTROLLED TRANSFORAMINAL EPIDURAL STEROID INJECTION - RIGHT L4/5 TFESI PHYSICIAN: Rome Rob DO INDICATIONS: Hernandez is referred by Dr. Car for treatment of Foraminal Stenosis with Right LE Symptoms FINDINGS Foraminal Nerve Root Compression secondary to disc disease and facet hypertrophy DESCRIPTION OF PROCEDURE: Following review of allergy and review of potential side effects and complications, including, but not necessarily limited to, infection, allergic reaction, local tissue breakdown, stroke, temporary or permanent nerve injury, paralysis, and possible , the patient indicated that the patient understood and agreed to proceed. An informed consent document was signed by the patient, witnessed by a nurse, and placed in the patient's chart. Additionally, other treatment options including medications, modalities, and physical therapy were reviewed with the patient. After review of previous anaesthesic history and IV conscious sedation the patient was deemed safe to proceed with todays procedure with IV conscious sedation as ASA class II designation. Safety time-out was performed to confirm patient ID, procedure to be performed and site of procedure. IV sedation was deemed unnecessary and thus not administered. In the prone position following sterile prep and drape of the lumbar region, the Right L4/5 posterior neuroforamen was identified fluoroscopically. The skin was anesthetized via a 25-gauge 1.5-inch needle with 1% lidocaine solution. At this point, a 25-gauge 3.5-inch spinal needle was atraumatically introduced and advanced under fluoroscopic guidance through the posterior Right L4/5 neuroforamen to approximately the anterior aspect of the canal. Depth was confirmed on lateral view. Following negative aspiration, injection of approximately 1.5 cc of Isovue 200 under live fluoroscopy in the AP view confirmed excellent flow along the nerve root, into the epidural space without vascular or intrathecal uptake observed Radiological data, including multiple fluoroscopic views of the lumbosacral spine, reveal a spinal needle at the right L4/5 posterior neuroforamen. Subsequent views show flow of contrast material flowing superiorly and inferiorly along the nerve root confirming epidural flow. Subsequently, a test dose of 1.5cc of 0.25% marcaine solution was administered and patient was observed for two minutes for signs or symptoms of complications, including abdominal pain, shortness of breath, bilateral upper or lower extremity weakness, nausea and vomiting, prior to steroid injection. At this point, a total of 3cc or 20mg of dexamethasone and 6mg of betamethasone was injected without incident. The procedure tolerated the procedure well without signs or symptoms of complications prior to transfer to the recovery area continued monitoring without incident.The patient was then transferred to the recovery area where they were observed for an appropriate time after the injection. The patient reported a VAS score of 7 prior to the procedure and a post- procedure VAS of 0. Total Fluoroscopy Time: 8 seconds Total Conscious Sedation Time: 24min POST OP INSTRUCTIONS The patient was provided a Pain Log to continue to record their response to the target-specific procedure prior to follow-up visit with their referring physician. Additionally, specific post-injection care instructions and a contact number to our office were provided if concerns arise regarding possible complications associated with the procedure are suspected. Rome Rob, Complications: none
[2019-11-19 14:03] VITALS: BP 135/69; PULSE 54; RESP 16; O2SAT 97
--- NOTE | 2019-11-19 14:04 | PC.NURSE ---
NO SEDATION MEDS GIVEN
== END 2019-11-19 14:07 | disposition home or self-care (01) ==
LOC: RAD 12:17
PROVIDERS: PCP Family Medicine Sports Medicine; Visit Provider Physical Medicine & Rehabilitation
DX: M48.061 Spinal stenosis, lumbar region without neurogenic claudication (principal); M51.16 Intervertebral disc disorders with radiculopathy, lumbar region
CPT/HCPCS: 64483; J0702; J1100

== ENCOUNTER 2019-11-24 08:52 | Day surgery (SDC) | payer OTHER, SELFPAY ==
[2019-11-24] MEDS: PROPARACAINE 0.5% OPHTH SOL 2 DROPS EYE-OP (09:31)
[2019-11-24] MEDS: CATARACT EYE COMPOUND (10 DROPS/SYRINGE) 3 DROPS EYE-OP (09:33)
[2019-11-24 09:43] VITALS: BP 109/75; PULSE 68; RESP 15; TEMP 36.1; O2SAT 93; BMI 23.0
--- NOTE | 2019-11-24 10:14 | PM.PREOP ---
Pre-operative Note Interval Note History & Physical reviewed/Exam performed by Physician: No Changes to H&P: No
--- NOTE | 2019-11-24 10:15 | PM.OP.1 ---
Operative Date/Time/Diagnoses Pre-op diagnosis: Nuclear Cataract Left eye Post-op diagnosis: same Procedure & Clinicians Same procedure as scheduled: Yes Surgeon: Antonio Romo Anesthesia Type: MAC +/- and Sedation Operative Notes Procedure in detail: Patient brought to the operating suite. Tetracaine drops placed in the left eye. Marking instrument was used to vinny the vertical and horizontal meridians. Patient was prepped and draped in sterile manner. Wire lid speculum was placed in the eye. Marking instrument was used to vinny 170 degree meridian. Betadine drops were placed on the eye. This was irrigated. Lidocaine jelly was placed on the eye. A paracentesis port was created with a side-port blade. 0.1 mL 1% preservative free lidocaine was injected into the anterior chamber. The anterior chamber was deepened with viscoelastic. 2.6 mm keratome was used to create a temporal clear corneal incision. Cystotome and Utrata forceps were used to create continuous tear capsulorrhexis. Balanced salt solution was used to hydro dissect the nucleus. The phacoemulsification handpiece was inserted and the nucleus was removed using the stop and chop technique. The irrigation aspiration handpiece was inserted and the remaining cortex was removed. Anterior chamber was deepened with viscoelastic. An Ruiz [id number] intraocular lens with a power of 21.0 was injected into the capsular bag. Irrigation aspiration handpiece was inserted and the remaining viscoelastic was removed. The lens was rotated to the 170 degree meridian. Incision was hydrated with balanced salt solution and found to be leak free with pressure with Weck-Grace sponges. 0.1 mL Vigamox injected anterior chamber. 0.3 mL Kenalog 10 mg was injected subconjunctivally. Lid speculum was removed. The patient left the operating room in excellent condition. Complications: none Post-operative Condition: stable Disposition: same day surgery
--- NOTE | 2019-11-24 10:43 | SUR.OPER ---
Supine on eye stretcher, head on extension cradle secured with tape. Arms tucked at sides with blanket. Pillow under knees.
[2019-11-24] MEDS: PHENYLEPHRINE/LIDOCAINE VIAL (OR) 0.2 ML EYE-OP (10:44)
[2019-11-24] MEDS: TRIAMCINOLONE 50 MG/5 ML VIAL INJ (10:45)
[2019-11-24] MEDS: MOXIFLOXACIN INJ 5 MG/ML VIAL EYE-OP (10:45)
[2019-11-24] MEDS: CHONDROIDTIN/SOD HYALURONATE 1.05 ML SYRINGE INTRAOCULA (10:45)
[2019-11-24] MEDS: LIDOCAINE JELLY 2% 5 ML 1 APPLIC TOP (10:45)
[2019-11-24] MEDS: BALANCED SALT IRRIG SOLN NO.2 500 ML, EPINEPHrine 1 MG IRR (10:46)
[2019-11-24] MEDS: TETRACAINE 0.5% OPHTH DROPS 4 ML 2 DROPS EYE-OP (10:46)
[2019-11-24 11:00] VITALS: BP 105/70; PULSE 62; RESP 15; TEMP 36.1; O2SAT 97
== END 2019-11-24 11:09 | disposition home or self-care (01) ==
PROVIDERS: Visit Provider Ophthalmology
PROC: (CPT 66984; principal; 2019-11-24 10:45)
DX: H25.12 Age-related nuclear cataract, left eye (principal); I10 Essential (primary) hypertension; G51.0 Bell's palsy
CPT/HCPCS: 66984; J0171; J2250; J3010; J3301; V2787

== ENCOUNTER 2019-12-18 08:39 | Outpatient (CLI) | payer OTHER, SELFPAY ==
--- NOTE | 2019-12-18 08:41 | DI.RAD.S_ITS ---
PROCEDURE: PAIN L/SI FACET INJ/BLK 1STL INDICATIONS: SPONDYLOSIS FINDINGS: Fluoroscopic spot filming was performed to verify placement of spinal needles at the left side L4, L5, and S1 positions for medial branch block procedures (3 separate procedures), as labeled on the films. Appropriate location(s) of the needle tip(s) was confirmed by injection of iodinated contrast. IMPRESSION: Expected needle tip localization on the left for L4, L5, and S1 medial branch block procedures. Dictated by: Natanael Dempsey M.D. on 12/18/2019 at 10:38 Approved by: Natanael Dempsey M.D. on 12/18/2019 at 10:51
[2019-12-18 09:14] VITALS: BP 123/78; PULSE 53; RESP 15; TEMP 36.1; O2SAT 94
[2019-12-18 09:26] VITALS: BP 117/69; PULSE 53; RESP 16; O2SAT 94
[2019-12-18 09:31] VITALS: BP 127/64; PULSE 52; RESP 16; O2SAT 94
[2019-12-18 09:36] VITALS: BP 127/64; PULSE 55; RESP 16; O2SAT 93
[2019-12-18] MEDS: BUPIVACAINE 0.5% (PF) VIAL 2 ML INJ (09:37)
[2019-12-18] MEDS: IOPAMIDOL 15 ML VIAL 3 ML INJ (09:37)
[2019-12-18 09:38] VITALS: BP 128/68; PULSE 57; RESP 16; O2SAT 94
--- NOTE | 2019-12-18 09:39 | PC.NURSE ---
NO SEDATION MEDS GIVEN. ASSISTING PT OFF TABLE AND TRANSPORTING TO POST PROC AREA IN STABLE CONDITION. PASING RN CARE OF PT OFF TO JULIO Pinzon RN
[2019-12-18 09:41] VITALS: BP 112/74; PULSE 61; RESP 15; O2SAT 96
--- NOTE | 2019-12-18 09:42 | PM.PROC.1 ---
Procedures Date/Time Date of procedure: 12/18/19 Time of procedure: 09:42 General Procedure description: POST OP DIAGNOSIS 1. FACET ARTHROPATHY PROCEDURES 1. Left L4, L5 and S1 MB BLOCKS PHYSICIAN: DO KADIE Malagon Hernandez is referred by Dr. Car for treatment of Left Axial LBP. DESCRIPTION OF PROCEDURE Fluoroscopically guided, contrast-controlled left L4, L5 and S1 medial branch blocks with 0.5cc of 0.5% Marcaine. Following review of allergy and review of potential side effects and complications, including, but not necessarily limited to, infection, allergic reaction, local tissue breakdown, nerve injury, paralysis, stroke and possible , the patient indicated that the patient understood and agreed to proceed. An informed consent document was signed by the patient, witnessed by a nurse, and placed in the patient's chart. After review of previous anaesthesic history and IV conscious sedation the patient was deemed safe to proceed with todays procedure with IV conscious sedation as ASA class II designation. Safety time-out was performed to confirm patient ID, procedure to be performed and site of procedure. IV sedation was deemed unnecessary and thus not administered by the RN after DO order, titrated to patient comfort during the course of the procedure while the patient remained responsive to all verbal commands. In the prone position, following sterile prep and drape of the lumbar region, the left L4, L5 and S1 anatomical location of the medial branch of the dorsal ramus was identified fluoroscopically. Subsequently an anesthetic skin wheal using 1% lidocaine solution was initiated at each of the anatomical spots. Subsequently then a 22-gauge 3.5-inch spinal needle was atraumatically introduced and advanced under fluoroscopic guidance at each of the corresponding sites at the left L4, L5 and S1 MB. After negative aspiration, 0.2 cc of Isovue 200 was injected, confirming placement without vascular or intrathecal uptake. Subsequently then 0.5 cc of 0.5% Marcaine solution was injected at each of the corresponding sites at the left L4, L5 and S1 medial branch locations. The patient tolerated the procedure well without signs or symptoms of complications. The patient tolerated the procedure well without signs or symptoms of complications prior to transfer to the recovery area continued monitoring without incident. Post-procedure, the patient was monitored initiating provocative activities to measure the amount of relief from block of the facetogenic pain. The patient reported a VAS of 7 prior to the procedure and a post-procedure VAS of 1. It has been a pleasure to assist in the diagnostic and therapeutic care of your patient. Total Fluoroscopy Time: 4 seconds Total Conscious Sedation Time: 24min POST OP INSTRUCTIONS The patient was provided with a Pain Log to complete over the next several hours and subsequent days prior to the patient's follow up with the ordering physician. If the patient has mannequin maker relief to the solution applied, then they may be a candidate for medial branch rhizotomy. The patient is aware, was provided, once again, with a Pain Log and will follow up with the referring physician for review and clinical correlation Rome Rob DO Complications: none
--- NOTE | 2019-12-18 14:44 | PC.NURSE ---
Late Entry: Pt returned to post procedure by wheelchair. No sedation was administered. Pt A/O and able to transfer independently from wheelchair chair. One set of vitals taken per procedural protocol. Pt discharged in stable condition
== END 2019-12-18 09:50 ==
LOC: RAD 08:41
PROVIDERS: PCP Family Medicine Sports Medicine; Referring Provider Physical Medicine & Rehabilitation; Visit Provider Physical Medicine & Rehabilitation
DX: M47.816 Spondylosis without myelopathy or radiculopathy, lumbar region (principal); M47.817 Spondylosis without myelopathy or radiculopathy, lumbosacral region
CPT/HCPCS: 64493; 64494; J2250; J3010

== ENCOUNTER → 2020-03-26 11:05 | Outpatient (CLI) | payer OTHER, SELFPAY ==
[2020-03-27 23:17] LABS: COVID19 Sendout Not Detected (Not Detect)
== END ==
PROVIDERS: PCP Family Medicine Sports Medicine; Visit Provider Physician Assistant
DX: Z01.818 Encounter for other preprocedural examination (principal)
CPT/HCPCS: 87635

== ENCOUNTER 2020-03-29 07:32 | Outpatient (CLI) | payer OTHER, SELFPAY ==
[2020-03-29] VITALS (12 sets, daily range): BP systolic 111–152; BP diastolic 64–75; PULSE 49–59; RESP 12–16; TEMP 36.6; O2SAT 96–99
--- NOTE | 2020-03-29 07:34 | DI.RAD.S_ITS ---
PROCEDURE: PAIN L/S MED/LAT N RFA BILAT INDICATIONS: SPONDYLOSIS FINDINGS: Fluoroscopic spot filming was performed to verify placement of spinal needles at the right and left L4, L5, and S1 levels, as labeled on the films. IMPRESSION: Intraprocedural examination within normal limits. Dictated by: Reece Guillen M.D. on 03/29/2020 at 9:04 Approved by: Reece Guillen M.D. on 03/29/2020 at 9:05
[2020-03-29] MEDS: BUPIVACAINE 0.5% (PF) VIAL 5 ML INJ (09:01)
[2020-03-29] MEDS: LIDOCAINE 1% 20 ML 10 ML INJ (09:01)
[2020-03-29] MEDS: MIDAZOLAM 5 MG/5 ML VIAL IV (09:07)
--- NOTE | 2020-03-29 09:18 | PC.NURSE ---
ASSISTING PT OFF TABLE AND TRANSPORTING TO POST PROC AREA IN STABLE CONDITION. PASSING RN CARE OF PT OFF TO [facility].
--- NOTE | 2020-03-29 09:22 | PM.PROC.1 ---
Procedures Date/Time Date of procedure: 03/29/20 Time of procedure: 09:22 General Procedure description: PREOP DIAGNOSIS 1. RECALCITRANT FACET ARTHROPATHY, POST OP DIAGNOSIS 1. RECALCITRANT FACET ARTHROPATHY PROCEDURES 1. BILATERAL L4 AND L5 MEDIAL BRANCH RADIOFREQUENCY NEUROTOMY AND S1 DORSAL RAMUS BRANCH RADIOFREQUENCY NEUROTOMY, PHYSICIAN: Rome Rob DO INDICATIONS: Hernandez is referred by for treatment of facet arthropathy. DESCRIPTION OF PROCEDURE Bilateral L4 and L5 medial branch radiofrequency neurotomy and bilateral S1 dorsal ramus radiofrequency neurotomy under fluoroscopy with conscious sedation. The patient is well known to this clinic having undergone previous facet injections with good but temporary relief. The patient has experienced appropriate, concordant relief with previous facet and median branch blocks but the patient's pain has been recalcitrant to further conservative measures. Therefore, based upon the patient's relief and persistent symptoms, the patient is considered an appropriate candidate for facet rhizotomy. All of the patient's questions regarding the risks versus benefits of the procedure, including, but not limited to, bleeding, infection, temporary as well as lasting nerve injury, paralysis, stroke, and , as well treatment alternatives were answered to satisfaction. After obtaining informed consent, denial of pertinent drug allergies, as well as being made aware of the potential risks of bleeding, infection, spinal cord trauma, paralysis, temporary and permanent nerve damage, seizure, stroke, and possible , the patient was brought to the fluoroscopy suite and positioned prone on the fluoroscopy table. The lumbar region was prepped with Betadine and covered with a fenestrated drape in the usual sterile fashion. Appropriate monitors applied including pulse oximeter, pulse, and blood pressure for regular monitoring throughout the procedure. After review of previous anaesthesic history and IV conscious sedation the patient was deemed safe to proceed with todays procedure with IV conscious sedation as ASA class II designation. Safety time-out was performed to confirm patient ID, procedure to be performed and site of procedure. IV sedation was accomplished with a combination of 5mg of Versed administered by the RN after DO order, titrated to patient comfort during the course of the procedure while the patient remained responsive to all verbal commands. After local infiltration using 1% lidocaine, under fluoroscopic guidance, a 10-cm RF insulated needle with a 10-mm active tip was positioned parallel to the junction of the right sacral ala and the superior articulating process where the S1 dorsal ramus resides. Needle placement was confirmed with motor stimulation of .5v on the right which produced local stimulation without radicular component. The stimulation was then increased to 1.5v with, once again, only local multifidus stimulation without radicular component. The needle was then removed and the identical procedure was performed along the length of the right L5 medial branch with motor stimulation at .7v on the right. The identical procedure was once again performed along the length of the right L4 medial branch with motor stimulation of .5v on the right. The medial branches were then anesthetised with 0.5% Marcaine. This was then followed by two discreet lesions performed at 80 degrees Celsius for 90 seconds each. The identical procedure was repeated on the left. The patient tolerated the procedure well without signs or symptoms of complications prior to transfer to the recovery area continued monitoring without incident. The patient was then transferred to the recovery area where they were observed for an appropriate period of time after the injection. The patient reported a VAS score of 9 prior to the procedure and a post-procedure VAS of 0. Total Fluoroscopy Time: 16 seconds Total Conscious Sedation Time: 34min POST OP INSTRUCTIONS The patient was provided a Pain Log to continue to record the patient's response to the target-specific procedure prior to the patient's follow-up visit with the referring physician. Additionally, specific post-injection care instructions and a contact number to our office were provided if concerns arise regarding possible complications associated with the procedure are suspected. Rome Rob DO Complications: none
== END 2020-03-29 09:40 | disposition home or self-care (01) ==
LOC: RAD 07:32
PROVIDERS: PCP Family Medicine Sports Medicine; Referring Provider Physical Medicine & Rehabilitation; Visit Provider Physical Medicine & Rehabilitation
DX: M47.816 Spondylosis without myelopathy or radiculopathy, lumbar region (principal); M47.817 Spondylosis without myelopathy or radiculopathy, lumbosacral region
CPT/HCPCS: 64635; 64636; 99152; 99153; J2250; J3010

== ENCOUNTER → 2020-04-02 08:11 | Outpatient (CLI) | payer OTHER, SELFPAY ==
[2020-04-02 09:14] LABS: Alanine Aminotransferase 35 IU/L (<50); Albumin 4.3 g/dL (3.5-5.0); Albumin Globulin Ratio 1.5 (1.0-2.8); Alkaline Phosphatase 82 U/L (38-126); Aspartate Aminotransferase 52 IU/L (17-59); BUN Creatinine Ratio 22.7 (6-22); Bilirubin Total 0.6 mg/dL (0.2-1.3); Blood Urea Nitrogen 20 mg/dL (9-20); Calcium 9.5 mg/dL (8.4-10.2); Carbon Dioxide 26 mmol/L (22-32); Chloride 109 mmol/L (98-107); Cholesterol 154 mg/dL (140-199); Estimated Glomerular Filt Rate > 60.0 mL/min (>60); Globulin 2.8 g/dL (1.7-4.1); Glucose 98 mg/dL (80-110); HDL Cholesterol 62 mg/dL (40-60); HEMOLYSIS < 15 (0-50); LDL Cholesterol Calculated 79 mg/dL (<100); Potassium 3.5 mmol/L (3.4-5.1); Sodium 143 mmol/L (137-145); Total Protein 7.1 g/dL (6.3-8.2); Triglycerides 63 mg/dL (35-150)
[2020-04-02 09:16] LABS: Hemoglobin A1C% w Est Avg Glu 4.9 % (4.0-6.0)
[2020-04-02 09:19] LABS: High Sensitivity CRP - Cardiac 1.8 mg/L (1.0-3.0)
[2020-04-02 09:23] LABS: NT-proBNP (BNP-Adult 18+) 244 pg/mL (<450)
[2020-04-02 11:48] LABS: Creatinine Urine Random 199.1 mg/dL
[2020-04-02 11:53] LABS: Microalbumin Urine Random 1.4 mg/dL (0-1.6)
[2020-04-03 04:49] LABS: Add Manual Diff / Slide Review NO; Basophils Absolute Auto 0 /uL (0-100); Basophils Percent Auto 0.8 % (0-2); Eosinophils Absolute Auto 200 /uL (0-450); Eosinophils Percent Auto 5.9 % (2-4); Hematocrit 42.7 % (41-53); Hemoglobin 14.4 g/dL (13.5-17.5); Lymphocytes Absolute Auto 1300 /uL (1100-4500); Mean Corpuscular HGB Conc 33.8 % (30-36); Mean Corpuscular Hemoglobin 33.2 PG (26-34); Mean Corpuscular Volume 98.3 fL (80-100); Monocytes Absolute Auto 500 /uL (0-900); Monocytes Percent Auto 13.1 % (3-14); Neutrophils Absolute Auto 1900 /uL (1500-7000); Neutrophils Percent Auto 48.2 % (50-75); Platelet Count 156 X10^3/uL (150-400); Red Blood Cell Count 4.35 X10^6/uL (4.5-5.9); Red Cell Distribution Width 13.7 % (11.6-14.8)
[2020-04-03 08:07] LABS: Apolipoprotein B 75 mg/dL (<90)
== END ==
PROVIDERS: PCP Family Medicine Sports Medicine; Referring Provider Family Medicine Sports Medicine; Visit Provider Family Medicine Sports Medicine
DX: I10 Essential (primary) hypertension (principal); I65.29 Occlusion and stenosis of unspecified carotid artery; R73.09 Other abnormal glucose; E03.9 Hypothyroidism, unspecified; E78.5 Hyperlipidemia, unspecified
CPT/HCPCS: 36415; 80053; 80061; 82043; 82172; 82570; 83036; 83880; 85025; 86140

== ENCOUNTER 2020-04-27 09:45 | Outpatient (RCR) | payer OTHER, SELFPAY ==
--- NOTE | 2020-01-13 14:25 | PT.OIE ---
Current Diagnoses Unilateral primary osteoarthritis, right knee (01/13/20) Presence of right artificial knee joint (01/13/20) Visit Care Team Role Provider Type Reji Car DO Attending Provider Non-Staff Primary Care Provider Referring Provider Specialty: Medical Address: [address] [place] [address], [phone] Email: Physical Therapy Initial Evaluation PT-OP-A Visit Information Start: 01/13/20 09:47 Freq: Status: Active Protocol: Document 01/13/20 11:46 [facility] (Rec: 01/13/20 11:52 [facility] [email or web address]) Out-Patient Physical Therapy Visit Information Visit Information Visit Type Initial Evaluation Visit Note 74 year old male s/p right knee replacement on 01/04/2020 Visit Start Time 09:45 Visit Stop Time 10:30 Total Visit Minutes 45 Visit Number 1 Evaluation Information Evaluation Date 01/13/20 PT-OP-B Current Condition Start: 01/13/20 09:47 Freq: Status: Active Protocol: Document 01/13/20 11:46 [facility] (Rec: 01/13/20 11:52 [facility] [email or web address]) Current Condition History of Current Condition Onset Date 01/04/20 Current Complaints decreased ROM, pain, decreased strength following surgery History of Current Condition Pt is a 74 year old male who underwent Total knee replacement 01/04/2020. He did pre op PT and feels this was very helpful. He has pain in his right knee rated 3-6/10 and pain in his R SI joint rated 3-6/10. He has moderate difficulty with putting on socks and shoes and walking long distances up to a mile. He has quite a bit of difficulty with standing greater than 1 hour. He is not using a assistive device to ambulate at this time. PT-OP-C Subjective Start: 01/13/20 09:47 Freq: Status: Active Protocol: Document 01/13/20 13:57 [facility] (Rec: 01/13/20 14:25 [facility] [email or web address]) OP-PT Pain Assessment Pain Assessment Grid Paper Pain Assessment Grid Completed Yes Location right low back Pain Location Details pain ranges from 3-6 Intensity 6 Scale Used Numeric (1 - 10) right knee Pain Location Details pain ranges from 3-6 Intensity 6 Scale Used Numeric (1 - 10) PT-OP-J Posture/Palpation/Skin Start: 01/13/20 09:47 Freq: Status: Active Protocol: Document 01/13/20 13:57 [facility] (Rec: 01/13/20 14:25 [facility] [email or web address]) Skin Assessment Incisional Assessment Incision Appearance/Comments inspection of the incision looks good, small amounts of redness in the distal incision over the patella tendon. Hernandez reports redness has been decreasing. No warmth is felt over the knee and swelling is considerably very low. PT-OP-K Range of Motion Start: 01/13/20 09:47 Freq: Status: Active Protocol: Document 01/13/20 13:57 [facility] (Rec: 01/13/20 14:25 [facility] [email or web address]) Knee Goniometric Range of Motion Knee Left Knee ROM WFL No Flexion Active (degrees) 125 Extension Passive (degrees) 8 Right Knee ROM WFL No Patient Position Supine Flexion Active (degrees) 80 Flexion Passive (degrees) 100 Extension Active (degrees) 20 Extension Passive (degrees) 10 PT-OP-M Strength Start: 01/13/20 09:47 Freq: Status: Active Protocol: Document 01/13/20 13:57 [facility] (Rec: 01/13/20 14:25 [facility] [email or web address]) Hip Strength Hip Manual Muscle Testing Right Abduction 4 Good Left Abduction 3+ Fair+ Knee Strength Knee Manual Muscle Testing Right Flexion (S2) 3+ Fair+ Extension (L3) 3+ Fair+ PT-OP-Q Treatments Start: 01/13/20 09:47 Freq: Status: Active Protocol: Document 01/13/20 13:57 [facility] (Rec: 01/13/20 14:25 [facility] [email or web address]) Cardio Equipment Recumbent Bicycle Duration (Minutes) 6 Resistance 2 Other pt able to make full resolution today on recumbent bicycle Therapeutic Exercises Supine Exercises 3 Supine Exercise Name supine wall slides for knee flexion Side right Reps/Minutes x 10 reps, use left leg as assist quad sets Side right Reps/Minutes 2 x 10 reps Comments with towel under the knee 2 Supine Exercise Name heel slides Side right Reps/Minutes 2 x 10 reps 1 Supine Exercise Name iliopsoas/quad stretch in gretel test position Side right Reps/Minutes hold x 30 seconds Sidelying Exercises 1 Sidelying Exercise Name sidelying clam shells Reps/Minutes 3 x 10 reps Comments used level 2 theraband Sitting Exercises seated knee extension Sitting Exercise Name seated knee extension Reps/Minutes x 10 reps PT-OP-T Assessment and Plan Start: 01/13/20 09:47 Freq: Status: Active Protocol: Document 01/13/20 13:57 [facility] (Rec: 01/13/20 14:25 [facility] [email or web address]) Physical Therapy Assessment Impairments Impairments Gait,Pain,ROM,Soft Tissue Mobility,Tone Goals Five Impairment right sided knee pain rated 6/ 10 Short Term Goal (STG) Hernandez reports a overall reduction in knee pain from 6/ 10 to 3-4/10 STG Duration 5 weeks Four Impairment decreased balance on the right LE [facility] Goal (LTG) Hernandez is able to perform a right SLS without hand hold for 10 seconds or greater LTG Duration 8 weeks One Impairment Decreased strength of the R LE s/p R TKE [facility] Goal (LTG) Improve strength to 4/5 or better for LE MMT LTG Duration 8 weeks Three Impairment decreased ability to perform a functional squat Short Term Goal (STG) Hernandez is able to perform 10 standing squats without pain and is good form STG Duration 5 weeks 1 Impairment Decreased right knee ROM s/p R TKA Short Term Goal (STG) Hernandez is able to increase his right knee ROM to 125 degrees felxion and 5 degrees or better extension STG Duration 5 weeks Assessment Summary Assessment Hernandez presents to physical therapy today s/p right TKA on 01/04/2020. He is 9 days post op and has been working on his pre op exercises. He had questions today regarding the inspection of his skin over the incision. He had noticed redness over the incision earlier in the week but notes that it is improving. With inspection today the incision seems to be healing well with minimal redness, minimal swelling, and no warmth to the touch. He is limited to 80 deg AROM knee flexion and 20 Deg AROM knee extension. I am able to passively take him to 100 deg knee flexion and 10 degrees knee extension today. He was also able to make a full resolution on the recumbent bike. He is ambulating without a assistive device but is experiencing some right SI joint pain symptoms. I did advise that a cane or walking stick may help with this and we will work on gait training with PT. Hernandez is a good candidate for PT working on knee ROM, strength, scar tissue massage, pain control, gait and balance training. Physical Therapy Plan Frequency and Duration Frequency of Treatment 2x/Week Duration of Treatment 8 Plan of Care Start Date 01/13/20 Plan of Care End Date 03/09/20 Therapeutic Interventions Therapeutic Interventions Balance Training,Gait Training ,Home Exercise Program,Manual Therapy,Self-Care/Home Management,Soft Tissue Mobilization,Therapeutic Exercises Modalities Cold Pack/Ice Massage
--- NOTE | 2020-01-13 14:26 | PT.OPPOC ---
Physical, Occupational & Speech Therapy At [facility] Current Diagnoses Unilateral primary osteoarthritis, right knee (01/13/20) Presence of right artificial knee joint (01/13/20) Visit Care Team Role Provider Type Reji Car DO Attending Provider Non-Staff Primary Care Provider Referring Provider Specialty: Medical Address: [address] [place] [address], [phone] Email: Plan Of Care PT-OP-T Assessment and Plan Start: 01/13/20 09:47 Freq: Status: Active Protocol: Document 01/13/20 13:57 [facility] (Rec: 01/13/20 14:25 [facility] [email or web address]) Physical Therapy Assessment Impairments Impairments Gait,Pain,ROM,Soft Tissue Mobility,Tone Goals Five Impairment right sided knee pain rated 6/ 10 Short Term Goal (STG) Hernandez reports a overall reduction in knee pain from 6/ 10 to 3-4/10 STG Duration 5 weeks Four Impairment decreased balance on the right LE Assisted Goal (LTG) Hernandez is able to perform a right SLS without hand hold for 10 seconds or greater LTG Duration 8 weeks One Impairment Decreased strength of the R LE s/p R TKE Fire Fighter Goal (LTG) Improve strength to 4/5 or better for LE MMT LTG Duration 8 weeks Three Impairment decreased ability to perform a functional squat Short Term Goal (STG) Hernandez is able to perform 10 standing squats without pain and is good form STG Duration 5 weeks 1 Impairment Decreased right knee ROM s/p R TKA Short Term Goal (STG) Hernandez is able to increase his right knee ROM to 125 degrees flexion and 5 degrees or better extension STG Duration 5 weeks Assessment Summary Assessment Hernandez presents to physical therapy today s/p right TKA on 01/04/2020. He is 9 days post op and has been working on his pre op exercises. He had questions today regarding the inspection of his skin over the incision. He had noticed redness over the incision earlier in the week but notes that it is improving. With inspection today the incision seems to be healing well with minimal redness, minimal swelling, and no warmth to the touch. He is limited to 80 deg AROM knee flexion and 20 Deg AROM knee extension. I am able to passively take him to 100 deg knee flexion and 10 degrees knee extension today. He was also able to make a full resolution on the recumbent bike. He is ambulating without a assistive device but is experiencing some right SI joint pain symptoms. I did advise that a cane or walking stick may help with this and we will work on gait training with PT. Hernandez is a good candidate for PT working on knee ROM, strength, scar tissue massage, pain control, gait and balance training. Physical Therapy Plan Frequency and Duration Frequency of Treatment 2x/Week Duration of Treatment 8 Plan of Care Start Date 01/13/20 Plan of Care End Date 03/09/20 Therapeutic Interventions Therapeutic Interventions Balance Training,Gait Training ,Home Exercise Program,Manual Therapy,Self-Care/Home Management,Soft Tissue Mobilization,Therapeutic Exercises Modalities Cold Pack/Ice Massage Plan of Care Dates Plan of Care Start Date 01/13/20 Plan of Care End Date 03/09/20 Electronically Signed by: Soledad Figueroa, PT 01/13/20 [id number] Please Sign and Return: I have reviewed this Plan of Care and certify that the skilled therapy services above are required to meet the patient?s needs. Physician Signature Date Printed Name and Credentials Clinical Instructor Signature Printed Name and Credentials
--- NOTE | 2020-01-19 14:27 | PT.OTN ---
Current Diagnoses Unilateral primary osteoarthritis, right knee (01/19/20) Presence of right artificial knee joint (01/19/20) Physical Therapy Treatment Note PT-OP-A Visit Information Start: 01/13/20 09:47 Freq: Status: Active Protocol: Document 01/19/20 14:01 [facility] (Rec: 01/19/20 14:27 [facility] [email or web address]) Out-Patient Physical Therapy Visit Information Visit Information Visit Type Treatment Note Visit Start Time 13:00 Visit Stop Time 13:45 Total Visit Minutes 45 Visit Number 2 Evaluation Information Evaluation Date 01/13/20 PT-OP-B Current Condition Start: 01/13/20 09:47 Freq: Status: Active Protocol: Document 01/13/20 11:46 [facility] (Rec: 01/13/20 11:52 [facility] [email or web address]) Current Condition History of Current Condition Onset Date 01/04/20 Current Complaints decreased ROM, pain, decreased strength following surgery History of Current Condition Pt is a 74 year old male who underwent Total knee replacement 01/04/2020. He did pre op PT and feels this was very helpful. He has pain in his right knee rated 3-6/10 and pain in his R SI joint rated 3-6/10. He has moderate difficulty with putting on socks and shoes and walking long distances up to a mile. He has quite a bit of difficulty with standing greater than 1 hour. He is not using a assistive device to ambulate at this time. PT-OP-C Subjective Start: 01/13/20 09:47 Freq: Status: Active Protocol: Document 01/19/20 14:01 [facility] (Rec: 01/19/20 14:27 [facility] [email or web address]) OP-PT Subjective Patient Comments Patient Comments pt reports he is doing well, he is working on quad sets, heel slides, riding his stationary bike and would like to start the shuttle that he has at home. He also has been using vitamin E on his scar PT-OP-J Posture/Palpation/Skin Start: 01/13/20 09:47 Freq: Status: Active Protocol: Document 01/13/20 13:57 [facility] (Rec: 01/13/20 14:25 [facility] [email or web address]) Skin Assessment Incisional Assessment Incision Appearance/Comments inspection of the incision looks good, small amounts of redness in the distal incision over the patella tendon. Hernandez reports redness has been decreasing. No warmth is felt over the knee and swelling is considerably very low. PT-OP-K Range of Motion Start: 01/13/20 09:47 Freq: Status: Active Protocol: Document 01/13/20 13:57 [facility] (Rec: 01/13/20 14:25 [facility] [email or web address]) Knee Goniometric Range of Motion Knee Left Knee ROM WFL No Flexion Active (degrees) 125 Extension Passive (degrees) 8 Right Knee ROM WFL No Patient Position Supine Flexion Active (degrees) 80 Flexion Passive (degrees) 100 Extension Active (degrees) 20 Extension Passive (degrees) 10 PT-OP-M Strength Start: 01/13/20 09:47 Freq: Status: Active Protocol: Document 01/13/20 13:57 [facility] (Rec: 01/13/20 14:25 [facility] [email or web address]) Hip Strength Hip Manual Muscle Testing Right Abduction 4 Good Left Abduction 3+ Fair+ Knee Strength Knee Manual Muscle Testing Right Flexion (S2) 3+ Fair+ Extension (L3) 3+ Fair+ PT-OP-Q Treatments Start: 01/13/20 09:47 Freq: Status: Active Protocol: Document 01/19/20 14:01 [facility] (Rec: 01/19/20 14:27 [facility] [email or web address]) Gym Equipment Shuttle Recovery Unilateral Squats Details unilateral squats Resistance 25# Reps/Time 3 x 10 reps Therapeutic Exercises Supine Exercises 5 Supine Exercise Name supine ball rolls Reps/Minutes 2 x 10 reps 4 Supine Exercise Name supine bridges Reps/Minutes x 5 quad sets Side right Reps/Minutes 2 x 10 reps Comments with towel under the knee 2 Supine Exercise Name heel slides Side right Reps/Minutes 2 x 10 reps Manual Therapy Treatment Soft Tissue Mobilization 1 Body Location right quad STM Body Position Supine Manual Techniques 3 Type manual knee ROM Comments flexion and extension ROM Knee flexion 100 knee extension 8 2 Type gentle scar tissue massage over the right knee incision 1 Type patella mobilizations Comments patella mobilization with gloves was performed for medial and lateral patella mobility and anterior posterior patella mobility. Good tolerance PT-OP-T Assessment and Plan Start: 01/13/20 09:47 Freq: Status: Active Protocol: Document 01/19/20 14:01 [facility] (Rec: 01/19/20 14:27 [facility] [email or web address]) Physical Therapy Assessment Assessment Summary Assessment Improved knee ROM today to 100 degrees knee flexion and 8 deg extension. Hernandez has a stationary bike at home and has a leg press weight machine . He has been given handouts of his exercises, his incision looks like it is healing very well. Skin looks healthy and pink. At this time we are putting treatment on hold due to the Covid 19 and our clinic closure Physical Therapy Plan Next Visit Focus/Plan Next Note Type Treatment Note Next Visit Plan reassess knee ROM and exercises once our clinic is back up and running.
--- NOTE | 2020-03-09 14:02 | PT.OPPOC ---
Physical, Occupational & Speech Therapy At [facility] Current Diagnoses Unilateral primary osteoarthritis, right knee (03/09/20) Presence of right artificial knee joint (03/09/20) Visit Care Team Role Provider Type Reji Car DO Attending Provider Non-Staff Primary Care Provider Referring Provider Specialty: Medical Address: [address] [place] [address], [phone] Email: Plan Of Care PT-OP-T Assessment and Plan Start: 01/13/20 09:47 Freq: Status: Active Protocol: Document 03/09/20 13:48 [facility] (Rec: 03/09/20 14:01 [facility] [email or web address]) Physical Therapy Assessment Goals Five Impairment right sided knee pain rated 6/ 10 Short Term Goal (STG) Hernandez reports a overall reduction in knee pain from 6/ 10 to 3-4/10 Goal MET STG Duration 5 weeks Four Impairment decreased balance on the right LE Sealing Machine Operator Goal (LTG) Hernandez is able to perform a right SLS without hand hold for 10 seconds or greater [employer]GR[employer] LTG Duration 8 weeks One Impairment Decreased strength of the R LE s/p R TKE Sealing Machine Operator Goal (LTG) Improve strength to 4/5 or better for LE MMT [employer]GR[employer] LTG Duration 8 weeks Three Impairment decreased ability to perform a functional squat Short Term Goal (STG) Hernandez is able to perform 10 standing squats without pain and is good form GOAL MET Two Impairment Complaints of knee pain with ascending and descending stairs Short Term Goal (STG) Hernandez is able to ascend and descend 15 stairs without increased complaints of pain STG Duration 4 weeks Progress Towards Goals Progress Towards Goals Progressing Toward Goals Assessment Summary Assessment Hernandez has not been seen since his last visit 01/19/20 due to the covid 19 pandemic. Hernandez is demonstrating good progress with his knee rehab. His knee flexion is 120 degrees on the right and extension is 4 degrees. Functionally he can perform a full squat and has been able to get out and do yard work on the side of his embankment. He does note that with walking he will start to experience low back pain and he has knee pain with stairs. He also reports ITB tightness. I talked today about not pushing it with his outside activities and to stop when he has pain and rest. We reviewed his exercise program and stretches. I began Soft tissue work over the ITB as well as patella mobilizations. Hernandez was also instructed in patella mobilizations. Hernandez would benefit from continue PT working towards his goal of being able to ambulate up and down stairs without pain and to improve his knee flexion by another 5 degrees. Physical Therapy Plan Frequency and Duration Frequency of Treatment 2x/Week Duration of Treatment 8 Plan of Care Start Date 03/09/20 Plan of Care End Date 05/04/20 Therapeutic Interventions Therapeutic Interventions Balance Training,Gait Training ,Home Exercise Program,Manual Therapy,Self-Care/Home Management,Soft Tissue Mobilization,Therapeutic Exercises Modalities Cold Pack/Ice Massage Plan of Care Dates Plan of Care Start Date 03/09/20 Plan of Care End Date 05/04/20 Electronically Signed by: Soledad Figueroa, PT 03/09/20 [id number] Please Sign and Return: I have reviewed this Plan of Care and certify that the skilled therapy services above are required to meet the patient?s needs. Physician Signature Date Printed Name and Credentials Clinical Instructor Signature Printed Name and Credentials
--- NOTE | 2020-03-09 14:02 | PT.OTN ---
Current Diagnoses Unilateral primary osteoarthritis, right knee (03/09/20) Presence of right artificial knee joint (03/09/20) Physical Therapy Treatment Note PT-OP-A Visit Information Start: 01/13/20 09:47 Freq: Status: Active Protocol: Document 03/09/20 13:48 [facility] (Rec: 03/09/20 14:01 [facility] [email or web address]) Out-Patient Physical Therapy Visit Information Visit Information Visit Type Treatment Note Visit Start Time 09:45 Visit Stop Time 10:30 Total Visit Minutes 45 Visit Number 3 Evaluation Information Evaluation Date 01/13/20 PT-OP-B Current Condition Start: 01/13/20 09:47 Freq: Status: Active Protocol: Document 01/13/20 11:46 [facility] (Rec: 01/13/20 11:52 [facility] [email or web address]) Current Condition History of Current Condition Onset Date 01/04/20 Current Complaints decreased ROM, pain, decreased strength following surgery History of Current Condition Pt is a 74 year old male who underwent Total knee replacement 01/04/2020. He did pre op PT and feels this was very helpful. He has pain in his right knee rated 3-6/10 and pain in his R SI joint rated 3-6/10. He has moderate difficulty with putting on socks and shoes and walking long distances up to a mile. He has quite a bit of difficulty with standing greater than 1 hour. He is not using a assistive device to ambulate at this time. PT-OP-C Subjective Start: 01/13/20 09:47 Freq: Status: Active Protocol: Document 03/09/20 13:48 [facility] (Rec: 03/09/20 14:01 [facility] [email or web address]) OP-PT Subjective Patient Comments Patient Comments pt reports he has been working on his home program since his last visit 01/19/20. He does still have pain with stairs and also in his low back with walking. At rest today his knee pain is 0/10 OP-PT Pain Assessment Location right low back Pain Location Details pain ranges from 3-6 Intensity 6 Scale Used Numeric (1 - 10) right knee Pain Location Details pain ranges from 0-5 Intensity 0 Scale Used Schmidt-Ceballos (Faces) PT-OP-J Posture/Palpation/Skin Start: 01/13/20 09:47 Freq: Status: Active Protocol: Document 01/13/20 13:57 [facility] (Rec: 01/13/20 14:25 [facility] [email or web address]) Skin Assessment Incisional Assessment Incision Appearance/Comments inspection of the incision looks good, small amounts of redness in the distal incision over the patella tendon. Hernandez reports redness has been decreasing. No warmth is felt over the knee and swelling is considerably very low. PT-OP-K Range of Motion Start: 01/13/20 09:47 Freq: Status: Active Protocol: Document 01/13/20 13:57 [facility] (Rec: 01/13/20 14:25 [facility] [email or web address]) Knee Goniometric Range of Motion Knee Left Knee ROM WFL No Flexion Active (degrees) 125 Extension Passive (degrees) 8 Right Knee ROM WFL No Patient Position Supine Flexion Active (degrees) 80 Flexion Passive (degrees) 100 Extension Active (degrees) 20 Extension Passive (degrees) 10 PT-OP-M Strength Start: 01/13/20 09:47 Freq: Status: Active Protocol: Document 01/13/20 13:57 [facility] (Rec: 01/13/20 14:25 [facility] [email or web address]) Hip Strength Hip Manual Muscle Testing Right Abduction 4 Good Left Abduction 3+ Fair+ Knee Strength Knee Manual Muscle Testing Right Flexion (S2) 3+ Fair+ Extension (L3) 3+ Fair+ PT-OP-Q Treatments Start: 01/13/20 09:47 Freq: Status: Active Protocol: Document 03/09/20 13:48 [facility] (Rec: 03/09/20 14:01 [facility] [email or web address]) Therapeutic Exercises Supine Exercises 8 Supine Exercise Name lower trunk rotation Reps/Minutes x 5 reps each 7 Supine Exercise Name single knee to chest Reps/Minutes 2 x 30 seconds each 6 Supine Exercise Name ITB stretch in supine with strap Reps/Minutes hold 1-2 minutes 4 Supine Exercise Name supine bridges Reps/Minutes x 5 quad sets Side right Reps/Minutes 2 x 10 reps Comments with towel under the knee 1 Supine Exercise Name iliopsoas/quad stretch in gretel test position Side right Reps/Minutes hold x 30 seconds Sidelying Exercises 1 Sidelying Exercise Name sidelying clam shells Reps/Minutes 3 x 10 reps Comments used level 2 theraband Manual Therapy Treatment Soft Tissue Mobilization 1 Body Location right quad STM and ITB release Body Position Supine Joint Mobilizations 1 Joint patella mobilization and patient educated in self patella mobs PT-OP-T Assessment and Plan Start: 01/13/20 09:47 Freq: Status: Active Protocol: Document 03/09/20 13:48 [facility] (Rec: 03/09/20 14:01 [facility] [email or web address]) Physical Therapy Assessment Goals Five Impairment right sided knee pain rated 6/ 10 Short Term Goal (STG) Hernandez reports a overall reduction in knee pain from 6/ 10 to 3-4/10 Goal MET STG Duration 5 weeks Four Impairment decreased balance on the right LE Half-Way Goal (LTG) Hernandez is able to perform a right SLS without hand hold for 10 seconds or greater GOOD PROGRES LTG Duration 8 weeks One Impairment Decreased strength of the R LE s/p R TKE Credit Authorizer Goal (LTG) Improve strength to 4/5 or better for LE MMT GOOD PROGRESS LTG Duration 8 weeks Three Impairment decreased ability to perform a functional squat Short Term Goal (STG) Hernandez is able to perform 10 standing squats without pain and is good form GOAL MET Two Impairment Complaints of knee pain with ascending and descending stairs Short Term Goal (STG) Hernandez is able to ascend and descend 15 stairs without increased complaints of pain STG Duration 4 weeks Progress Towards Goals Progress Towards Goals Progressing Toward Goals Assessment Summary Assessment Hernandez has not been seen since his last visit 01/19/20 due to the covid 19 pandemic. Hernandez is demonstrating good progress with his knee rehab. His knee flexion is 120 degrees on the right and extension is 4 degrees. Functionally he can perform a full squat and has been able to get out and do yard work on the side of his embankment. He does note that with walking he will start to experience low back pain and he has knee pain with stairs. He also reports ITB tightness. I talked today about not pusing it with his outside activities and to stop when he has pain and rest. We reviewd his exercise program and stretches. I began Soft tissue work over the ITB as well as patella mobilizations. Hernandez was also instructed in patella mobilizations. Hernandez would benefit from continue PT working towards his goal of being able to ambulate up and down stairs without pain and to improve his knee flexion by another 5 degrees. Physical Therapy Plan Frequency and Duration Frequency of Treatment 2x/Week Duration of Treatment 8 Plan of Care Start Date 03/09/20 Plan of Care End Date 05/04/20 Therapeutic Interventions Therapeutic Interventions Balance Training,Gait Training ,Home Exercise Program,Manual Therapy,Self-Care/Home Management,Soft Tissue Mobilization,Therapeutic Exercises Modalities Cold Pack/Ice Massage
--- NOTE | 2020-03-23 12:45 | PT.OTN ---
Current Diagnoses Unilateral primary osteoarthritis, right knee (03/23/20) Presence of right artificial knee joint (03/23/20) Physical Therapy Treatment Note PT-OP-A Visit Information Start: 01/13/20 09:47 Freq: Status: Active Protocol: Document 03/23/20 12:37 [facility] (Rec: 03/23/20 12:45 [facility] [email or web address]) Out-Patient Physical Therapy Visit Information Visit Information Visit Type Treatment Note Visit Start Time 09:45 Visit Stop Time 10:30 Total Visit Minutes 45 Visit Number 4 Evaluation Information Evaluation Date 01/13/20 PT-OP-B Current Condition Start: 01/13/20 09:47 Freq: Status: Active Protocol: Document 01/13/20 11:46 [facility] (Rec: 01/13/20 11:52 [facility] [email or web address]) Current Condition History of Current Condition Onset Date 01/04/20 Current Complaints decreased ROM, pain, decreased strength following surgery History of Current Condition Pt is a 74 year old male who underwent Total knee replacement 01/04/2020. He did pre op PT and feels this was very helpful. He has pain in his right knee rated 3-6/10 and pain in his R SI joint rated 3-6/10. He has moderate difficulty with putting on socks and shoes and walking long distances up to a mile. He has quite a bit of difficulty with standing greater than 1 hour. He is not using a assistive device to ambulate at this time. PT-OP-C Subjective Start: 01/13/20 09:47 Freq: Status: Active Protocol: Document 03/23/20 12:37 [facility] (Rec: 03/23/20 12:45 [facility] [email or web address]) OP-PT Subjective Patient Comments Patient Comments pt has been working more on his knee flexion, he feels it has improved. He also has started using a walking stick when he is out doing yard work and he notes this has helped his back. He is seeing Dr Rob next week for a injection for his spine PT-OP-J Posture/Palpation/Skin Start: 01/13/20 09:47 Freq: Status: Active Protocol: Document 01/13/20 13:57 [facility] (Rec: 01/13/20 14:25 [facility] [email or web address]) Skin Assessment Incisional Assessment Incision Appearance/Comments inspection of the incision looks good, small amounts of redness in the distal incision over the patella tendon. Hernandez reports redness has been decreasing. No warmth is felt over the knee and swelling is considerably very low. PT-OP-K Range of Motion Start: 01/13/20 09:47 Freq: Status: Active Protocol: Document 01/13/20 13:57 [facility] (Rec: 01/13/20 14:25 [facility] [email or web address]) Knee Goniometric Range of Motion Knee Left Knee ROM WFL No Flexion Active (degrees) 125 Extension Passive (degrees) 8 Right Knee ROM WFL No Patient Position Supine Flexion Active (degrees) 80 Flexion Passive (degrees) 100 Extension Active (degrees) 20 Extension Passive (degrees) 10 PT-OP-M Strength Start: 01/13/20 09:47 Freq: Status: Active Protocol: Document 01/13/20 13:57 [facility] (Rec: 01/13/20 14:25 [facility] [email or web address]) Hip Strength Hip Manual Muscle Testing Right Abduction 4 Good Left Abduction 3+ Fair+ Knee Strength Knee Manual Muscle Testing Right Flexion (S2) 3+ Fair+ Extension (L3) 3+ Fair+ PT-OP-Q Treatments Start: 01/13/20 09:47 Freq: Status: Active Protocol: Document 03/23/20 12:37 [facility] (Rec: 03/23/20 12:45 [facility] [email or web address]) Therapeutic Exercises Supine Exercises 8 Supine Exercise Name lower trunk rotation Reps/Minutes x 5 reps each 6 Supine Exercise Name ITB stretch in supine with strap Reps/Minutes hold 1-2 minutes 2 Supine Exercise Name heel slides Side right Reps/Minutes 2 x 10 reps 1 Supine Exercise Name iliopsoas/quad stretch in gretel test position Side right Reps/Minutes hold x 30 seconds Sidelying Exercises 1 Sidelying Exercise Name sidelying clam shells Reps/Minutes 3 x 10 reps Comments used level 2 theraband Manual Therapy Treatment Soft Tissue Mobilization 1 Body Location right quad STM and ITB release Body Position Supine Comments also added in TFL release in left sidelying Joint Mobilizations 1 Joint patella mobilization and patient educated in self patella mobs Manual Techniques 4 Type manual ITB stretch 2 Type gentle scar tissue massage over the right knee incision Self-Care/Home Management Treatment Education Patient Education Home Exercise Program Other Education self patella mobs and patella tendon mobs PT-OP-T Assessment and Plan Start: 01/13/20 09:47 Freq: Status: Active Protocol: Document 03/23/20 12:37 [facility] (Rec: 03/23/20 12:45 [facility] [email or web address]) Physical Therapy Assessment Assessment Summary Assessment Pt was able to flex his right knee to 125 degrees today, good improvements. He is experiencing less pain since he started doing the self patella mobs at home. We increased this today to include patella tendon mobilizations. Pt has dificulty laying on right side , we talked about pillow positioning for him today as well Physical Therapy Plan Frequency and Duration Frequency of Treatment 2x/Week Duration of Treatment 8 Plan of Care Start Date 03/09/20 Plan of Care End Date 05/04/20 Therapeutic Interventions Therapeutic Interventions Balance Training,Gait Training ,Home Exercise Program,Manual Therapy,Self-Care/Home Management,Soft Tissue Mobilization,Therapeutic Exercises Modalities Cold Pack/Ice Massage Next Visit Focus/Plan Next Note Type Treatment Note Next Visit Plan check in with pillow positioning for bed, reassess right sided hip pain from ITB and patella tendon tightness
--- NOTE | 2020-04-04 18:16 | PT.OTN ---
Current Diagnoses Unilateral primary osteoarthritis, right knee (04/04/20) Presence of right artificial knee joint (04/04/20) Physical Therapy Treatment Note PT-OP-A Visit Information Start: 01/13/20 09:47 Freq: Status: Active Protocol: Document 04/04/20 18:05 [facility] (Rec: 04/04/20 18:16 [facility] [email or web address]) Out-Patient Physical Therapy Visit Information Visit Information Visit Type Treatment Note Visit Start Time 09:45 Visit Stop Time 10:30 Total Visit Minutes 45 Visit Number 5 PT-OP-B Current Condition Start: 01/13/20 09:47 Freq: Status: Active Protocol: Document 01/13/20 11:46 [facility] (Rec: 01/13/20 11:52 [facility] [email or web address]) Current Condition History of Current Condition Onset Date 01/04/20 Current Complaints decreased ROM, pain, decreased strength following surgery History of Current Condition Pt is a 74 year old male who underwent Total knee replacement 01/04/2020. He did pre op PT and feels this was very helpful. He has pain in his right knee rated 3-6/10 and pain in his R SI joint rated 3-6/10. He has moderate difficulty with putting on socks and shoes and walking long distances up to a mile. He has quite a bit of difficulty with standing greater than 1 hour. He is not using a assistive device to ambulate at this time. PT-OP-C Subjective Start: 01/13/20 09:47 Freq: Status: Active Protocol: Document 04/04/20 18:05 [facility] (Rec: 04/04/20 18:16 [facility] [email or web address]) OP-PT Subjective Patient Comments Patient Comments pt reports he has been working on his exercises at home. He had his spinal injection and this has helped. Still having some pain in the left lateral hip and going down stairs is difficult still PT-OP-J Posture/Palpation/Skin Start: 01/13/20 09:47 Freq: Status: Active Protocol: Document 01/13/20 13:57 [facility] (Rec: 01/13/20 14:25 [facility] [email or web address]) Skin Assessment Incisional Assessment Incision Appearance/Comments inspection of the incision looks good, small amounts of redness in the distal incision over the patella tendon. Hernandez reports redness has been decreasing. No warmth is felt over the knee and swelling is considerably very low. PT-OP-K Range of Motion Start: 01/13/20 09:47 Freq: Status: Active Protocol: Document 01/13/20 13:57 [facility] (Rec: 01/13/20 14:25 [facility] [email or web address]) Knee Goniometric Range of Motion Knee Left Knee ROM WFL No Flexion Active (degrees) 125 Extension Passive (degrees) 8 Right Knee ROM WFL No Patient Position Supine Flexion Active (degrees) 80 Flexion Passive (degrees) 100 Extension Active (degrees) 20 Extension Passive (degrees) 10 PT-OP-M Strength Start: 01/13/20 09:47 Freq: Status: Active Protocol: Document 01/13/20 13:57 [facility] (Rec: 01/13/20 14:25 [facility] [email or web address]) Hip Strength Hip Manual Muscle Testing Right Abduction 4 Good Left Abduction 3+ Fair+ Knee Strength Knee Manual Muscle Testing Right Flexion (S2) 3+ Fair+ Extension (L3) 3+ Fair+ PT-OP-Q Treatments Start: 01/13/20 09:47 Freq: Status: Active Protocol: Document 04/04/20 18:05 [facility] (Rec: 04/04/20 18:16 [facility] [email or web address]) Therapeutic Exercises Standing Exercises standing single leg balance Standing Exercise Name standing single leg balance standing single leg squat Standing Exercise Name mini single leg squats Reps/Minutes x 15 Comments keeping good form with knee behind toes standing calf stretch Reps/Minutes 30 second hold Manual Therapy Treatment Soft Tissue Mobilization 1 Body Location right quad STM and ITB release Body Position Supine Comments also added in TFL release in left sidelying Joint Mobilizations 1 Joint patella mobilization and patient educated in self patella mobs PT-OP-T Assessment and Plan Start: 01/13/20 09:47 Freq: Status: Active Protocol: Document 04/04/20 18:05 [facility] (Rec: 04/04/20 18:16 [facility] [email or web address]) Physical Therapy Assessment Assessment Summary Assessment Hernandez continues to demonstrated excellent progress. He is still having difficulty going down stairs and with some residual ITB tightness Physical Therapy Plan Frequency and Duration Frequency of Treatment 2x/Week Duration of Treatment 8 Plan of Care Start Date 03/09/20 Plan of Care End Date 05/04/20 Therapeutic Interventions Therapeutic Interventions Balance Training,Gait Training ,Home Exercise Program,Manual Therapy,Self-Care/Home Management,Soft Tissue Mobilization,Therapeutic Exercises Modalities Cold Pack/Ice Massage
--- NOTE | 2020-04-27 12:29 | PT.OTN ---
Current Diagnoses Unilateral primary osteoarthritis, right knee (04/27/20) Presence of right artificial knee joint (04/27/20) Physical Therapy Treatment Note PT-OP-A Visit Information Start: 01/13/20 09:47 Freq: Status: Active Protocol: Document 04/27/20 09:36 [facility] (Rec: 04/27/20 09:47 [facility] [id number]) Out-Patient Physical Therapy Visit Information Visit Information Visit Type Treatment Note Visit Start Time 09:45 Visit Stop Time 10:30 Total Visit Minutes 45 Visit Number 6 PT-OP-B Current Condition Start: 01/13/20 09:47 Freq: Status: Active Protocol: Document 01/13/20 11:46 [facility] (Rec: 01/13/20 11:52 [facility] [id number]) Current Condition History of Current Condition Onset Date 01/04/20 Current Complaints decreased ROM, pain, decreased strength following surgery History of Current Condition Pt is a 74 year old male who underwent Total knee replacement 01/04/2020. He did pre op PT and feels this was very helpful. He has pain in his right knee rated 3-6/10 and pain in his R SI joint rated 3-6/10. He has moderate difficulty with putting on socks and shoes and walking long distances up to a mile. He has quite a bit of difficulty with standing greater than 1 hour. He is not using a assistive device to ambulate at this time. PT-OP-C Subjective Start: 01/13/20 09:47 Freq: Status: Active Protocol: Document 04/27/20 09:36 [facility] (Rec: 04/27/20 09:47 [facility] [id number]) OP-PT Subjective Patient Comments Patient Comments Pt reports he is still having difficulty with stairs and his right low back is sore, he can lay on his right hip now for 1/2 a hour though so that is better. His knee is better overall with the exception of pain going down stairs. He brings in a new referral for PT for his low back which he would like to get started after his MRI PT-OP-J Posture/Palpation/Skin Start: 01/13/20 09:47 Freq: Status: Active Protocol: Document 01/13/20 13:57 [facility] (Rec: 01/13/20 14:25 [facility] [email or web address]) Skin Assessment Incisional Assessment Incision Appearance/Comments inspection of the incision looks good, small amounts of redness in the distal incision over the patella tendon. Hernandez reports redness has been decreasing. No warmth is felt over the knee and swelling is considerably very low. PT-OP-K Range of Motion Start: 01/13/20 09:47 Freq: Status: Active Protocol: Document 01/13/20 13:57 [facility] (Rec: 01/13/20 14:25 [facility] [email or web address]) Knee Goniometric Range of Motion Knee Left Knee ROM WFL No Flexion Active (degrees) 125 Extension Passive (degrees) 8 Right Knee ROM WFL No Patient Position Supine Flexion Active (degrees) 80 Flexion Passive (degrees) 100 Extension Active (degrees) 20 Extension Passive (degrees) 10 PT-OP-M Strength Start: 01/13/20 09:47 Freq: Status: Active Protocol: Document 01/13/20 13:57 [facility] (Rec: 01/13/20 14:25 [facility] [email or web address]) Hip Strength Hip Manual Muscle Testing Right Abduction 4 Good Left Abduction 3+ Fair+ Knee Strength Knee Manual Muscle Testing Right Flexion (S2) 3+ Fair+ Extension (L3) 3+ Fair+ PT-OP-Q Treatments Start: 01/13/20 09:47 Freq: Status: Active Protocol: Document 04/27/20 09:36 [facility] (Rec: 04/27/20 09:47 [facility] [id number]) Therapeutic Exercises Supine Exercises 2 Supine Exercise Name lower trunk rotation Reps/Minutes x [address] 1 Supine Exercise Name iliopsoas/quad stretch in gretel test position Side right Reps/Minutes hold x 1 minute x 2 reps Standing Exercises 2 Standing Exercise Name standing mini lunges Reps/Minutes x 10 each leg standing single leg balance Standing Exercise Name standing single leg balance 1 Standing Exercise Name standing quad stretch using a chair standing calf stretch Reps/Minutes 30 second hold Manual Therapy Treatment Soft Tissue Mobilization 1 Body Location right quad STM and ITB release Body Position Supine Comments also added in TFL release in left sidelying Joint Mobilizations 1 Joint patella mobilization and patient educated in self patella mobs PT-OP-T Assessment and Plan Start: 01/13/20 09:47 Freq: Status: Active Protocol: Document 04/27/20 12:24 [facility] (Rec: 04/27/20 12:29 [facility] [email or web address]) Physical Therapy Assessment Goals Five Impairment right sided knee pain rated 6/ 10 Short Term Goal (STG) Hernandez reports a overall reduction in knee pain from 6/ 10 to 3-4/10 Goal MET STG Duration 5 weeks Four Impairment decreased balance on the right LE Saw Superintendent Goal (LTG) Hernandez is able to perform a right SLS without hand hold for 10 seconds or greater GOOD PROGRES LTG Duration 8 weeks One Impairment Decreased strength of the R LE s/p R TKE Saw Superintendent Goal (LTG) Improve strength to 4/5 or better for LE MMT GOOD PROGRESS LTG Duration 8 weeks Three Impairment decreased ability to perform a functional squat Short Term Goal (STG) Hernandez is able to perform 10 standing squats without pain and is good form GOAL MET Two Impairment Complaints of knee pain with ascending and descending stairs Short Term Goal (STG) Hernandez is able to ascend and descend 15 stairs without increased complaints of pain Hernandez is still having pain with descending stairs. He has been given a home program to work on both flexibility of his quads as well as eccentric strengthening to help with stairs STG Duration 4 weeks 1 Impairment Decreased right knee ROM s/p R TKA Short Term Goal (STG) Hernandez is able to increase his right knee ROM to 125 degrees felxion and 5 degrees or better extension GOAL MET STG Duration 5 weeks Assessment Summary Assessment Hernandez has made great overall progress with his right knee following right TKA. He has met all goals with the exception of descending stairs without pain. He is able to perform a functional squat in good form. I have progressed his home program to work on pain free eccentric quad control as well as a flexibility program as I feel the tightness in his quads contributes to his pain. He has shown great progress with knee ROM and is WFL now for knee range. At this time he will be discharged to a independent home program for his knee. Physical Therapy Plan Discharge Physical Therapy Discharge Reasons Patient Request Discharge Comments Pt has done well with PT and feels independent with his home program. He would like to DC PT for his knee and then begin PT for his right low back.
== END 2020-05-03 09:08 ==
LOC: PHYS 09:45
PROVIDERS: PCP Family Medicine Sports Medicine; Referring Provider Family Medicine Sports Medicine; Visit Provider Family Medicine Sports Medicine
DX: M17.11 Unilateral primary osteoarthritis, right knee (principal); Z96.651 Presence of right artificial knee joint
CPT/HCPCS: 97110; 97140; 97161

== ENCOUNTER → 2020-05-10 09:43 | Outpatient (CLI) | payer OTHER, SELFPAY ==
--- NOTE | 2020-05-10 09:44 | DI.MRI.S_ITS ---
PROCEDURE: MR LUMBAR SPINE WO CON INDICATIONS: axial LBP TECHNIQUE: Noncontrast sagittal T1 spin echo and T2 fast echo, sagittal STIR, axial T1 and T2 fast spin echo through the lumbar spine. In cases with scoliosis, additional coronal T2 fast spin echo may be performed. COMPARISON: [facility], MR, L-SPINE WITHOUT CONTRAST, 11/13/2006, 8:35. [facility], MR, L-SPINE WITHOUT CONTRAST, 04/19/2017, 9:50. [facility], MR, MR LUMBAR SPINE WO CON, 03/05/2018, 9:21. FINDINGS: Image quality: Excellent. Alignment and Curvature: There is mild dextroconvex curvature of the lumbar spine with apex at L3. There is trace anterolisthesis of T12 on L1, trace retrolisthesis of L2 on L3, L3 on L4, L5 on S1. Bone Marrow: Marrow is of normal overall signal. No acute vertebral body compression fractures. Spinal Cord: Conus medullaris terminates at the L1 level. Visualized cord demonstrates normal signal and size. As identified on prior exam, there is appearance of thickening and clumping of the nerve roots within the lower lumbar spine, L4 through S1. This has been unchanged since 2012. However, this was not present in 2008. Paraspinous Soft Tissues: No paravertebral masses. Renal cysts are noted. Discs: Severe desiccation is present throughout the lumbar spine. L1-L2: Mild disc bulge without spinal stenosis or foraminal narrowing. Minimal canal narrowing. Facet and ligamentum flavum hypertrophy are present. No interval change. L2-L3: Mild disc bulge with mild canal narrowing. Mild right and [id number] left foraminal narrowing with facet and ligamentum flavum hypertrophy. No interval change. L3-L4: Mild disc bulge with mild spinal stenosis. There is mild bilateral foraminal narrowing with facet and ligamentum flavum hypertrophy. No interval change. L4-L5: Mild disc bulge with mild spinal stenosis. Moderate to severe right and [id number] left foraminal narrowing with facet and ligamentum flavum hypertrophy. No interval change. L5-S1: Mild disc bulge with mild spinal stenosis. Severe right and mild left foraminal narrowing with mild flattening of the exiting right L5 nerve roots. Facet hypertrophy is present. No interval change. IMPRESSION: 1. Multilevel degenerative changes stable compared to prior exam. 2. Multilevel spinal stenosis overall mild and secondary to disc bulge with contributing affective facet/ligamentum flavum arthropathy. 3. Multilevel foraminal narrowing remaining most severe at L5-S1 with flattening of the exiting right L5 nerve root, secondary to retrolisthesis and facet arthropathy. 4. Persistent appearance of thickened clumped nerve roots as above. This can be secondary to sequela of previous infection, surgery or less common etiologies such as chronic inflammatory polyneuropathy. Dictated by: Patrizia Prieto M.D. on 05/10/2020 at 13:27 Approved by: Patrizia Prieto M.D. on 05/10/2020 at 13:40
--- NOTE | 2020-05-10 09:45 | DI.RAD.S_ITS ---
PROCEDURE: XR LUMBAR SPINE MIN 4V INDICATIONS: axial LBP TECHNIQUE: 5 views of the lumbar spine were acquired. COMPARISON: None. FINDINGS: Bones: 5 nonrib-bearing vertebrae are present. There is approximately 6? of convex right lumbar spine curvature. There is normal bony alignment. No vertebral body compression fractures. No suspicious bony lesions. Severe L2-L3, L4-L5 and L5-S1 degenerative disc disease. Moderate L3-L4 degenerative disc disease. Mild L1-L2 degenerative disc disease. Moderate L3-L4, L4-L5 and L5-S1 facet arthropathy. Soft tissues: Overlying bowel gas pattern is normal. No suspicious soft tissue calcifications. Surgical clips in the left pelvis. Oblique images: No pars defects. IMPRESSION: 1. Multilevel degenerative disc disease. 2. Multilevel facet arthropathy. 3. No fracture. No acute osseous lesion. If symptoms and/or clinical suspicion for pathology persists, evaluation with MRI may be helpful for further assessment. Dictated by: Rocio Cronin MD, PhD on 05/10/2020 at 17:53 Approved by: Rocio Cronin MD, PhD on 05/10/2020 at 17:54
== END ==
PROVIDERS: PCP Family Medicine Sports Medicine; Referring Provider Physical Medicine & Rehabilitation; Visit Provider Physical Medicine & Rehabilitation
DX: M51.16 Intervertebral disc disorders with radiculopathy, lumbar region (principal); M51.17 Intervertebral disc disorders with radiculopathy, lumbosacral region; M47.26 Other spondylosis with radiculopathy, lumbar region; M47.27 Other spondylosis with radiculopathy, lumbosacral region; M48.061 Spinal stenosis, lumbar region without neurogenic claudication; M48.07 Spinal stenosis, lumbosacral region; M99.83 Other biomechanical lesions of lumbar region
CPT/HCPCS: 72110; 72148

== ENCOUNTER 2020-06-29 11:15 | Outpatient (RCR) | payer OTHER, SELFPAY ==
--- NOTE | 2020-06-16 14:20 | PT.OTN ---
Current Diagnoses Spondylosis without myelopathy or radiculopathy, lumbosacral region (06/09/20) Other biomechanical lesions of lumbar region (06/09/20) Physical Therapy Treatment Note PT-OP-A Visit Information Start: 06/09/20 11:54 Freq: Status: Active Protocol: Document 06/09/20 11:55 [facility] (Rec: 06/09/20 12:04 [facility] [id number]) Out-Patient Physical Therapy Visit Information Visit Information Visit Type Initial Evaluation Visit Start Time 09:45 Visit Stop Time 10:30 Total Visit Minutes 45 Visit Number 1 Evaluation Information Evaluation Date 06/09/20 PT-OP-B Current Condition Start: 06/09/20 11:54 Freq: Status: Active Protocol: Document 06/09/20 11:55 [facility] (Rec: 06/09/20 12:04 [facility] [id number]) Current Condition History of Current Condition Onset Date chronic in nature Current Complaints low back pain R > L History of Current Condition Hernandez is a 74 year old male who I have seen in the clinic for hip pain and most recently after his TKA for rehab. He returns today with chief complaints of low back pain and tightness. He rates his pain in his low back as 3-5/10 . Symotoms begin in his right side which he calls a 'Pain Frank and then pain spreads across his low back. Hernandez is very active with his yard work and maintainance of his yard. He notes he will work anyway despite pain but pain does limit the duration of his work. Prior Treatments and Tests Recent MRI and Xray reports show severe dic desiccation throughout the lumbar spine, multi level degenerative changes and spinal stenosis, multilevel foraminal narrowing Treatment Goals Patient/Caregiver Goals Luke goals include being able to have overall decreased pain and do the work he needs to do around his yard. PT-OP-C Subjective Start: 06/09/20 11:54 Freq: Status: Active Protocol: Document 06/09/20 13:23 [facility] (Rec: 06/09/20 13:28 [facility] [id number]) OP-PT Pain Assessment Location left sided low back Pain Location Details left low back Intensity 3 Scale Used Numeric (0 - 10) Description Radiating Frequency Daily Pain Alleviating Factors Cold right low back Pain Location Details right low back Intensity 5 Scale Used Numeric (0 - 10) Description Stabbing Frequency Daily Pain Duration pain starts in the right side of the low back and progresses to the left Radiating Location left side of back PT-OP-F Manual Assessment Start: 06/09/20 11:54 Freq: Status: Active Protocol: Document 06/09/20 13:06 [facility] (Rec: 06/09/20 13:22 [facility] [id number]) Manual Assessments Soft Tissue Assessment Soft Tissue Mobility Assessment Tightness in the right greater than left paraspinals, right Quadratus lumborum, latissimus tightness bilaterally. Joint Mobility Assessment Joint Mobility Assessment Decreased joint mobility throughout the thoracic and lumbar spine PT-OP-J Posture/Palpation/Skin Start: 06/09/20 11:54 Freq: Status: Active Protocol: Document 06/09/20 13:06 [facility] (Rec: 06/09/20 13:22 [facility] [email or web address]) Posture Evaluation Position Standing Evaluation View Lateral Head/C-Spine Posture Forward Head T-Spine Posture Flattened Palpation Assessment Location latissimus dorsi Palpation Location restrictions at the lumbar dorsal fascia,latissimus dorsi insertio Palpation Findings Soft Tissue Tightness bilateral lumbar paraspinals Palpation Location bilateral lumbar paraspinals Palpation Findings Soft Tissue Tightness,Spasm, Muscle Guarding right quadratus lumborum Palpation Location right quadratus lumborum Palpation Findings Soft Tissue Tightness,Spasm, Muscle Guarding PT-OP-K Range of Motion Start: 06/09/20 11:54 Freq: Status: Active Protocol: Document 06/09/20 13:06 [facility] (Rec: 06/09/20 13:22 [facility] [id number]) Lumbar Spine Range of Motion Lumbar Spine Active Testing Position Standing Flexion 40 Extension 10 Rotation Left 15 Rotation Right 15 Lateral Flexion Left 5 Lateral Flexion Right 10 ROM Limitations Soft Tissue Tightness Comments pt has pain with lumbar extension and has difficulty with sidebending activities especially to the left side PT-OP-Q Treatments Start: 06/09/20 11:54 Freq: Status: Active Protocol: Document 06/09/20 13:06 [facility] (Rec: 06/09/20 13:22 [facility] [email or web address]) Therapeutic Exercises Other Exercises lumbar sidebending exercise in standing Other Exercise Name lumbar sidebending exercise in standing Side bilateral Comments pt to use the wall as support (modified child's pose in standing) quadraped sidebends Other Exercise Name quadruped side bends Side bilateral Reps/Minutes x 10 reps each Comments good tolerance today and no c/ o pain Manual Therapy Treatment Soft Tissue Mobilization Quadratus lumborum release R Body Location right sided quadratus lumborus release Mobilization Type Myofascial Release Body Position Sidelying Comments worked on the right side of the QL, there is very little space between the last rib and the pelvis. I worked on opening with this area with MFR Self-Care/Home Management Treatment Education Patient Education Body Mechanics,Home Exercise Program,Joint Protection Caregiver Education pt educated in lumbar decompression position with legs in a 90/90 position after working in his yard. We discussed icing his back in this position in the evening. PT-OP-T Assessment and Plan Start: 06/09/20 11:54 Freq: Status: Active Protocol: Document 06/09/20 13:23 [facility] (Rec: 06/09/20 13:28 [facility] [id number]) Physical Therapy Assessment Rehab Potential Rehabilitation Potential Good Evaluation Complexity Number of Personal Factors/Comorbidities 0 Number of Body Systems Impaired 1-2 Clinical Presentation at Evaluation Stable Impairments Impairments Activity Tolerance,Functional Activities,Pain,Posture,ROM, Soft Tissue Mobility Goals Four Impairment muscle guarding and spasm of the right Quadratus lumborum and paraspinals B Short Term Goal (STG) Muscle guarding and tension is reduced with both manual therapy techniques and stretches STG Duration 4 weeks Three Impairment Decreased spinal ROM into flexion and SB Premium Auditor Goal (LTG) Hernandez demonstrates improved lumbar ROM into both lumbar flexion and sidebending. LTG Duration 8 weeks Two Impairment Patient is limited with his yard work ability due to pain Assisted Goal (LTG) Hernandez is able to return to 3- 4 hours of yard work using good body mechanics and decreased pain levels LTG Duration 8 weeks 1 Impairment Low back pain 3-5/10 worse on the right Assisted Goal (LTG) Hernandez is educated in a home stretching program and stabilization program to help decrease muscle spasm and guarding and decrease pain levels LTG Duration 8 weeks Assessment Summary Assessment Hernandez is a 74 year old male who I have seen in the clinic for hip pain and most recently after his TKA for rehab. He returns today with chief complaints of low back pain and tightness. He returns today with chief complaints of low back pain and tightness. Recent MRI reports multilevel degenerative changes, multilevel foraminal narrowing remaining most severe at L5-S1 wit flattening of the exiting right L5 Nerve root. At this time Hernandez do not complain of any nerve symptoms. He states that he has back pain every day but he tries to push through as he wants to stay active. He works in his yard daily and states that he will get a spike of pain on the right side of his lumbar spine and that the pain will spread to include his left side. He does try to avoid heavy lifting but notes there is times he will need to lift. For example at times he will need to lift his lawnmower into his truck. We discussed body mechanics today and how lifting heavy objects can increase pressure on his back. Hernandez's primary goal is to be able to continue with his yard maintenance without pain or decreased pain. With evaluation today he demonstrates loss of lumbar ROM especially into extension and sidebending. He is restricted in the muscle tissue in the right quadratus lumborum and has difficulty with side bending motions. I started him today with lumbar flexion stretches, sidebending stretches, and a position of decompression for his low back after working outside. I also began some MFR work ont he right side of paraspinals and quadratus lumborum. Treatment will focus on body mechanics, tissue work, stretches, posture and stabilization exercises Physical Therapy Plan Frequency and Duration Frequency of Treatment 2x/Week Duration of Treatment 8 weeks Plan of Care Start Date 06/09/20 Plan of Care End Date 08/04/20 Therapeutic Interventions Therapeutic Interventions Home Exercise Program, Neuromuscular Re-education, Patient/Caregiver Education, Self-Care/Home Management,Soft Tissue Mobilization, Therapeutic Exercises Next Visit Focus/Plan Next Note Type Treatment Note Next Visit Plan review stretches for lumbar flexion and sidebending, MFR over the lumbar paraspinals and quadratus lumborum, postural education and stabilization for the lumbar spine
--- NOTE | 2020-06-16 14:20 | PT.OPPOC ---
Physical, Occupational & Speech Therapy At [facility] Current Diagnoses Spondylosis without myelopathy or radiculopathy, lumbosacral region (06/09/20) Other biomechanical lesions of lumbar region (06/09/20) Visit Care Team Role Provider Type Reji Car DO Primary Care Provider Non-Staff Specialty: Medical Address: [address] [place] [address], [phone] Email: Rome Rob DO Attending Provider Physician Referring Provider Specialty: Physiatry Pain Management Address: [address] [facility], [place], [address] Email: [email or web address] Plan Of Care PT-OP-T Assessment and Plan Start: 06/09/20 11:54 Freq: Status: Active Protocol: Document 06/09/20 13:23 [facility] (Rec: 06/09/20 13:28 [facility] [id number]) Physical Therapy Assessment Rehab Potential Rehabilitation Potential Good Evaluation Complexity Number of Personal Factors/Comorbidities 0 Number of Body Systems Impaired 1-2 Clinical Presentation at Evaluation Stable Impairments Impairments Activity Tolerance,Functional Activities,Pain,Posture,ROM, Soft Tissue Mobility Goals Four Impairment muscle guarding and spasm of the right Quadratus lumborum and paraspinals B Short Term Goal (STG) Muscle guarding and tension is reduced with both manual therapy techniques and stretches STG Duration 4 weeks Three Impairment Decreased spinal ROM into flexion and SB [employer] Goal (LTG) Hernandez demonstrates improved lumbar ROM into both lumbar flexion and side bending. LTG Duration 8 weeks Two Impairment Patient is limited with his yard work ability due to pain [facility] Goal (LTG) Hernandez is able to return to 3- 4 hours of yard work using good body mechanics and decreased pain levels LTG Duration 8 weeks 1 Impairment Low back pain 3-5/10 worse on the right [employer] Goal (LTG) Hernandez is educated in a home stretching program and stabilization program to help decrease muscle spasm and guarding and decrease pain levels LTG Duration 8 weeks Assessment Summary Assessment Hernandez is a 74 year old male who I have seen in the clinic for hip pain and most recently after his TKA for rehab. He returns today with chief complaints of low back pain and tightness. He returns today with chief complaints of low back pain and tightness. Recent MRI reports multilevel degenerative changes, multilevel foraminal narrowing remaining most severe at L5-S1 wit flattening of the exiting right L5 Nerve root. At this time Hernandez do not complain of any nerve symptoms. He states that he has back pain every day but he tries to push through as he wants to stay active. He works in his yard daily and states that he will get a spike of pain on the right side of his lumbar spine and that the pain will spread to include his left side. He does try to avoid heavy lifting but notes there is times he will need to lift. For example at times he will need to lift his lawnmower into his truck. We discussed body mechanics today and how lifting heavy objects can increase pressure on his back. Hernandez's primary goal is to be able to continue with his yard maintenance without pain or decreased pain. With evaluation today he demonstrates loss of lumbar ROM especially into extension and side bending. He is restricted in the muscle tissue in the right quadratus lumborum and has difficulty with side bending motions. I started him today with lumbar flexion stretches, side bending stretches, and a position of decompression for his low back after working outside. I also began some MFR work on the right side of paraspinals and quadratus lumborum. Treatment will focus on body mechanics, tissue work, stretches, posture and stabilization exercises Physical Therapy Plan Frequency and Duration Frequency of Treatment 2x/Week Duration of Treatment 8 weeks Plan of Care Start Date 06/09/20 Plan of Care End Date 08/04/20 Therapeutic Interventions Therapeutic Interventions Home Exercise Program, Neuromuscular Re-education, Patient/Caregiver Education, Self-Care/Home Management,Soft Tissue Mobilization, Therapeutic Exercises Next Visit Focus/Plan Next Note Type Treatment Note Next Visit Plan review stretches for lumbar flexion and sidebending, MFR over the lumbar paraspinals and quadratus lumborum, postural education and stabilization for the lumbar spine Plan of Care Dates Plan of Care Start Date 06/09/20 Plan of Care End Date 08/04/20 Electronically Signed by: Soledad Figueroa, PT 06/16/20 [id number] Please Sign and Return: I have reviewed this Plan of Care and certify that the skilled therapy services above are required to meet the patient?s needs. Physician Signature Date Printed Name and Credentials Clinical Instructor Signature Printed Name and Credentials
--- NOTE | 2020-06-29 13:54 | PT.OTN ---
Current Diagnoses Spondylosis without myelopathy or radiculopathy, lumbosacral region (06/29/20) Other biomechanical lesions of lumbar region (06/29/20) Physical Therapy Treatment Note PT-OP-A Visit Information Start: 06/09/20 11:54 Freq: Status: Active Protocol: Document 06/29/20 11:14 [facility] (Rec: 06/29/20 11:16 [facility] [id number]) Out-Patient Physical Therapy Visit Information Visit Information Visit Type Treatment Note Visit Start Time 11:15 Visit Stop Time 12:00 Total Visit Minutes 45 Visit Number 2 PT-OP-B Current Condition Start: 06/09/20 11:54 Freq: Status: Active Protocol: Document 06/09/20 11:55 [facility] (Rec: 06/09/20 12:04 [facility] [id number]) Current Condition History of Current Condition Onset Date chronic in nature Current Complaints low back pain R > L History of Current Condition Hernandez is a 74 year old male who I have seen in the clinic for hip pain and most recently after his TKA for rehab. He returns today with chief complaints of low back pain and tightness. He rates his pain in his low back as 3-5/10 . Symotoms begin in his right side which he calls a 'Pain Frank and then pain spreads across his low back. Hernandez is very active with his yard work and maintainance of his yard. He notes he will work anyway despite pain but pain does limit the duration of his work. Prior Treatments and Tests Recent MRI and Xray reports show severe dic desiccation throughout the lumbar spine, multi level degenerative changes and spinal stenosis, multilevel foraminal narrowing Treatment Goals Patient/Caregiver Goals Luke goals include being able to have overall decreased pain and do the work he needs to do around his yard. PT-OP-C Subjective Start: 06/09/20 11:54 Freq: Status: Active Protocol: Document 06/29/20 11:28 [facility] (Rec: 06/29/20 11:28 [facility] [id number]) OP-PT Subjective Patient Comments Patient Comments t reports he has been doing his exercises 1 time per day and it ihas really helped. Today pain in 0/10 Patient Reported Progress Improving PT-OP-F Manual Assessment Start: 06/09/20 11:54 Freq: Status: Active Protocol: Document 06/09/20 13:06 [facility] (Rec: 06/09/20 13:22 [facility] [id number]) Manual Assessments Soft Tissue Assessment Soft Tissue Mobility Assessment Tightness in the right greater than left paraspinals, right Quadratus lumborum, latissimus tightness bilaterally. Joint Mobility Assessment Joint Mobility Assessment Decreased joint mobility throughout the thoracic and lumbar spine PT-OP-J Posture/Palpation/Skin Start: 06/09/20 11:54 Freq: Status: Active Protocol: Document 06/09/20 13:06 [facility] (Rec: 06/09/20 13:22 [facility] [id number]) Posture Evaluation Position Standing Evaluation View Lateral Head/C-Spine Posture Forward Head T-Spine Posture Flattened Palpation Assessment Location latissimus dorsi Palpation Location restrictions at the lumbar dorsal fascia,latissimus dorsi insertio Palpation Findings Soft Tissue Tightness bilateral lumbar paraspinals Palpation Location bilateral lumbar paraspinals Palpation Findings Soft Tissue Tightness,Spasm, Muscle Guarding right quadratus lumborum Palpation Location right quadratus lumborum Palpation Findings Soft Tissue Tightness,Spasm, Muscle Guarding PT-OP-K Range of Motion Start: 06/09/20 11:54 Freq: Status: Active Protocol: Document 06/09/20 13:06 [facility] (Rec: 06/09/20 13:22 [facility] [id number]) Lumbar Spine Range of Motion Lumbar Spine Active Testing Position Standing Flexion 40 Extension 10 Rotation Left 15 Rotation Right 15 Lateral Flexion Left 5 Lateral Flexion Right 10 ROM Limitations Soft Tissue Tightness Comments pt has pain with lumbar extension and has difficulty with sidebending activities especially to the left side PT-OP-Q Treatments Start: 06/09/20 11:54 Freq: Status: Active Protocol: Document 06/29/20 13:54 [facility] (Rec: 06/29/20 13:54 [facility] [id number]) Self-Care/Home Management Treatment Education Patient Education Home Exercise Program Other Education pt to continue with patella mobilizations and stretchign for his quad PT-OP-T Assessment and Plan Start: 06/09/20 11:54 Freq: Status: Active Protocol: Document 06/29/20 13:48 [facility] (Rec: 06/29/20 13:54 [facility] [id number]) Physical Therapy Assessment Assessment Summary Assessment Hernandez reports his pain is very low at this point in his back. At this time it is a 0/ 10 He has been working on his stretching routine at home for his back and he has been able to manage his symptoms with these stretches. He had questions today about his MRI . I reviewed with him where he has foramlinal narrowing using the spine model and he felt this was very helpful. At this point Hernandez is doing well with his exercises. He does not have any further visits scheduled at this time. If he feels he needs further therapy within the time frame of his plan of care we will schedule him. If not he will be discharged to a [facility] Physical Therapy Plan Frequency and Duration Frequency of Treatment 2x/Week Duration of Treatment 8 weeks Plan of Care Start Date 06/09/20 Plan of Care End Date 08/04/20 Therapeutic Interventions Therapeutic Interventions Home Exercise Program, Neuromuscular Re-education, Patient/Caregiver Education, Self-Care/Home Management,Soft Tissue Mobilization, Therapeutic Exercises
== END 2020-06-30 11:26 | disposition home or self-care (01) ==
LOC: PHYS 11:15
PROVIDERS: PCP Family Medicine Sports Medicine; Referring Provider Physical Medicine & Rehabilitation; Visit Provider Physical Medicine & Rehabilitation
DX: M99.83 Other biomechanical lesions of lumbar region (principal); M47.817 Spondylosis without myelopathy or radiculopathy, lumbosacral region
CPT/HCPCS: 97110; 97140; 97161; 97535

== ENCOUNTER → 2020-09-02 07:34 | Outpatient (CLI) | payer OTHER, SELFPAY ==
[2020-09-02 08:15] LABS: Add Manual Diff / Slide Review NO; Basophils Absolute Auto 0 /uL (0-100); Basophils Percent Auto 1.3 % (0-2); Eosinophils Absolute Auto 300 /uL (0-450); Eosinophils Percent Auto 7.8 % (2-4); Hematocrit 42.4 % (41-53); Hemoglobin 14.3 g/dL (13.5-17.5); Lymphocytes Absolute Auto 1300 /uL (1100-4500); Lymphocytes Percent Auto 34.4 % (25-40); Mean Corpuscular HGB Conc 33.6 % (30-36); Mean Corpuscular Hemoglobin 32.9 PG (26-34); Mean Corpuscular Volume 97.8 fL (80-100); Monocytes Absolute Auto 500 /uL (0-900); Monocytes Percent Auto 13.7 % (3-14); Neutrophils Absolute Auto 1600 /uL (1500-7000); Neutrophils Percent Auto 42.8 % (50-75); Platelet Count 135 X10^3/uL (150-400); Red Blood Cell Count 4.34 X10^6/uL (4.5-5.9); Red Cell Distribution Width 13.7 % (11.6-14.8); White Blood Cell Count 3.7 X10^3/uL (4.5-11.0)
[2020-09-02 08:51] LABS: Alanine Aminotransferase 38 IU/L (<50); Albumin 4.1 g/dL (3.5-5.0); Albumin Globulin Ratio 1.5 (1.0-2.8); Alkaline Phosphatase 76 U/L (38-126); Aspartate Aminotransferase 57 IU/L (17-59); Bilirubin Total 0.5 mg/dL (0.2-1.3); Blood Urea Nitrogen 20 mg/dL (9-20); Calcium 9.1 mg/dL (8.4-10.2); Carbon Dioxide 28 mmol/L (22-32); Chloride 111 mmol/L (98-107); Cholesterol 145 mg/dL (140-199); Estimated Glomerular Filt Rate > 60.0 mL/min (>60); Gamma Glutamyl Transpeptidase 43 U/L (15-73); Globulin 2.7 g/dL (1.7-4.1); Glucose 96 mg/dL (80-110); HDL Cholesterol 66 mg/dL (40-60); HEMOLYSIS < 15 (0-50); Hemoglobin A1C% w Est Avg Glu 5.4 % (4.0-6.0); LDL Cholesterol Calculated 66 mg/dL (<100); Potassium 3.5 mmol/L (3.4-5.1); Sodium 142 mmol/L (137-145); Total Protein 6.8 g/dL (6.3-8.2); Triglycerides 63 mg/dL (35-150)
[2020-09-02 08:58] LABS: High Sensitivity CRP - Cardiac 1.9 mg/L (1.0-3.0)
[2020-09-02 09:05] LABS: NT-proBNP (BNP-Adult 18+) 163 pg/mL (<450); Vitamin D 25 Hydroxy (D3) 69.7 ng/mL (30.0-100.0)
[2020-09-02 10:24] LABS: Microalbumin Urine Random 1.2 mg/dL (0-1.6)
[2020-09-02 10:27] LABS: Creatinine Urine Random 217.7 mg/dL; Microalbumi Creatinin Ratio Ur 5.5 ug/mg CR (<30)
[2020-09-02 11:29] LABS: Erythrocyte Sedimentation Rate 5 MM/HR (0-15)
[2020-09-03 04:13] LABS: Apolipoprotein B 74 mg/dL (<90)
== END ==
PROVIDERS: PCP Family Medicine Sports Medicine; Referring Provider Family Medicine Sports Medicine; Visit Provider Family Medicine Sports Medicine
DX: I10 Essential (primary) hypertension (principal); E78.5 Hyperlipidemia, unspecified; G47.00 Insomnia, unspecified; M79.7 Fibromyalgia; E03.9 Hypothyroidism, unspecified; R73.09 Other abnormal glucose; I65.29 Occlusion and stenosis of unspecified carotid artery
CPT/HCPCS: 36415; 80053; 80061; 82043; 82172; 82306; 82570; 82977; 83036; 83880; 85025; 85651; 86140

== ENCOUNTER → 2020-09-08 13:09 | Outpatient (CLI) | payer OTHER, SELFPAY ==
[2020-09-08 14:33] LABS: Fibrinogen 215 mg/dL (211-428)
[2020-09-08 14:50] LABS: NT-proBNP (BNP-Adult 18+) 157 pg/mL (<450)
[2020-09-09 05:15] LABS: Homocysteine 13.3 umol/L (0.0-19.2)
[2020-09-09 07:36] LABS: Apolipoprotein B 79 mg/dL (<90)
== END ==
PROVIDERS: PCP Family Medicine Sports Medicine; Referring Provider Family Medicine Sports Medicine; Visit Provider Family Medicine Sports Medicine
DX: I10 Essential (primary) hypertension (principal); E78.5 Hyperlipidemia, unspecified; G47.00 Insomnia, unspecified; I65.29 Occlusion and stenosis of unspecified carotid artery; R73.09 Other abnormal glucose; E03.9 Hypothyroidism, unspecified; M79.7 Fibromyalgia
CPT/HCPCS: 82172; 83090; 83880; 85384

== ENCOUNTER → 2020-11-02 12:43 | Outpatient (CLI) | payer OTHER, SELFPAY ==
[2020-11-02 13:09] LABS: COVID19 -Nasal RAPID Negative (Negative)
== END ==
PROVIDERS: PCP Family Medicine Sports Medicine; Visit Provider Physician Assistant
DX: R05 Cough (principal); R09.81 Nasal congestion
CPT/HCPCS: 87635

== ENCOUNTER → 2020-12-02 10:01 | Outpatient (CLI) | payer OTHER, SELFPAY ==
[2020-12-02] MEDS: COVID-19 VACC #1, MRNA(MOD) 100 MCG/0.5 ML VIAL IM (10:08)
== END ==
PROVIDERS: PCP Family Medicine Sports Medicine; Visit Provider Internal Medicine
DX: Z23 Encounter for immunization (principal)
CPT/HCPCS: 0011A; 91301

== ENCOUNTER → 2020-12-29 12:33 | Outpatient (CLI) | payer OTHER, SELFPAY ==
[2020-12-29] MEDS: COVID-19 VACC #2, MRNA(MOD) 100 MCG/0.5 ML VIAL IM (12:38)
== END ==
PROVIDERS: PCP Family Medicine Sports Medicine; Visit Provider Internal Medicine
DX: Z23 Encounter for immunization (principal)
CPT/HCPCS: 0012A; 91301

== ENCOUNTER → 2021-04-04 11:13 | Outpatient (CLI) | payer OTHER, SELFPAY ==
--- NOTE | 2021-04-04 11:17 | DI.RAD.S_ITS ---
PROCEDURE: XR HIP W PEL IF DONE RT 2V INDICATIONS: PAIN WITH WALKING TECHNIQUE: AP pelvis with lateral view(s) of the right hip(s). COMPARISON: [facility], CR, XR PELVIS W BILAT LAT HIPS 3VW, 12/20/2016, 9:45. FINDINGS: Bones: No fractures or dislocations. Pelvic ring appears intact. No suspicious bony lesions. Moderate bilateral hip joint space narrowing with periarticular osteophytes. No erosions. Overall appearance is relatively unchanged. Degenerative changes are present within the lower lumbar spine. Soft tissues: The visualized bowel gas pattern is normal. No suspicious soft tissue calcifications. IMPRESSION: Arthritic changes within the hips bilaterally, relatively stable. Dictated by: Patrizia Prieto M.D. on 04/04/2021 at 13:04 Approved by: Patrizia Prieto M.D. on 04/04/2021 at 13:05
== END ==
PROVIDERS: PCP Family Medicine Sports Medicine; Referring Provider Family Medicine Sports Medicine; Visit Provider Family Medicine Sports Medicine
DX: M25.551 Pain in right hip (principal)
CPT/HCPCS: 73502

== ENCOUNTER → 2021-04-20 09:19 | Outpatient (CLI) | payer OTHER, SELFPAY ==
[2021-04-20 10:26] LABS: Hemoglobin A1C% w Est Avg Glu 5.3 % (4.0-6.0)
[2021-04-20 10:27] LABS: Add Manual Diff / Slide Review NO; Basophils Absolute Auto 100 /uL (0-100); Basophils Percent Auto 2.2 % (0-2); Eosinophils Absolute Auto 200 /uL (0-450); Eosinophils Percent Auto 6.2 % (2-4); Hemoglobin 14.1 g/dL (13.5-17.5); Lymphocytes Absolute Auto 900 /uL (1100-4500); Lymphocytes Percent Auto 26.9 % (25-40); Mean Corpuscular HGB Conc 33.7 % (30-36); Mean Corpuscular Hemoglobin 33.1 PG (26-34); Mean Corpuscular Volume 98.2 fL (80-100); Monocytes Absolute Auto 500 /uL (0-900); Monocytes Percent Auto 15.2 % (3-14); Neutrophils Absolute Auto 1600 /uL (1500-7000); Neutrophils Percent Auto 49.5 % (50-75); Platelet Count 131 X10^3/uL (150-400); Red Blood Cell Count 4.27 X10^6/uL (4.5-5.9); Red Cell Distribution Width 13.6 % (11.6-14.8); White Blood Cell Count 3.3 X10^3/uL (4.5-11.0)
[2021-04-20 10:53] LABS: Fibrinogen 227 mg/dL (211-428)
[2021-04-20 11:26] LABS: Alanine Aminotransferase 38 IU/L (<50); Albumin Globulin Ratio 1.5 (1.0-2.8); Alkaline Phosphatase 71 U/L (38-126); Aspartate Aminotransferase 61 IU/L (17-59); BUN Creatinine Ratio 23.5 (6-22); Bilirubin Total 0.5 mg/dL (0.2-1.3); Blood Urea Nitrogen 20 mg/dL (9-20); Calcium 9.5 mg/dL (8.4-10.2); Carbon Dioxide 23 mmol/L (22-32); Chloride 110 mmol/L (98-107); Estimated Glomerular Filt Rate > 60.0 mL/min (>60); Gamma Glutamyl Transpeptidase 46 U/L (15-73); Globulin 2.7 g/dL (1.7-4.1); Glucose 77 mg/dL (80-110); HEMOLYSIS < 15 (0-50); Potassium 3.9 mmol/L (3.4-5.1); Sodium 140 mmol/L (137-145); Total Protein 6.7 g/dL (6.3-8.2)
[2021-04-20 11:29] LABS: High Sensitivity CRP - Cardiac 4.1 mg/L (1.0-3.0)
[2021-04-20 11:30] LABS: Creatinine Urine Random 192.7 mg/dL
[2021-04-20 11:32] LABS: Microalbumi Creatinin Ratio Ur 6.7 ug/mg CR (<30); Microalbumin Urine Random 1.3 mg/dL (0-1.6)
[2021-04-20 11:35] LABS: NT-proBNP (BNP-Adult 18+) 167 pg/mL (<450)
[2021-04-20 11:58] LABS: Thyroid Stimulating Hormone 0.983 uIU/mL (0.47-4.68)
[2021-04-20 12:00] LABS: Ferritin 130 ng/mL (18-464)
[2021-04-21 06:08] LABS: Insulin Level Total 4.6 uIU/mL (2.6-24.9)
[2021-04-24 12:59] LABS: 1,25-Dihydroxy, Vitamin D-2 <10 pg/mL (.)
== END ==
PROVIDERS: PCP Family Medicine Sports Medicine; Referring Provider Family Medicine Sports Medicine; Visit Provider Family Medicine Sports Medicine
DX: E78.5 Hyperlipidemia, unspecified (principal); I10 Essential (primary) hypertension; F41.9 Anxiety disorder, unspecified; I65.29 Occlusion and stenosis of unspecified carotid artery; E55.9 Vitamin D deficiency, unspecified; M79.7 Fibromyalgia; E03.9 Hypothyroidism, unspecified; I87.2 Venous insufficiency (chronic) (peripheral); G47.00 Insomnia, unspecified; R73.09 Other abnormal glucose
CPT/HCPCS: 36415; 80053; 82043; 82570; 82652; 82728; 82977; 83036; 83525; 83880; 84443; 85025; 85384; 86140

== ENCOUNTER → 2021-07-20 14:01 | Outpatient (CLI) | payer OTHER, SELFPAY ==
[2021-07-21 12:42] LABS: Bilirubin Urine UA NEGATIVE (NEGATIVE); Color Urine UA YELLOW; Glucose Urine UA NEGATIVE (Negative); Ketones Urine UA NEGATIVE (NEGATIVE); Leukocyte Esterase Urine UA TRACE (NEGATIVE); Nitrite Urine UA NEGATIVE (Negative); Occult Blood Urine UA NEGATIVE (Negative); Protein Urine UA NEGATIVE (Negative); Urobilinogen Urine UA 0.2 E.U./dL (0.2)
[2021-07-21 12:54] LABS: Appearance Urine UA Slightly Cloudy
[2021-07-21 12:55] LABS: Amorphous Sediment Urine 2+; Bacteria Urine Moderate (10-30); Culture Indicated Urine Specimen Cultured; RBC Urine None Seen (0-5/HPF); Squamous Epithelial Cell Urine 0-1 /HPF (0-5/HPF); WBC Urine 1-5/HPF (0-5/HPF)
== END ==
PROVIDERS: PCP Family Medicine Sports Medicine; Referring Provider Family Medicine Sports Medicine; Visit Provider Family Medicine Sports Medicine
DX: R39.2 Extrarenal uremia (principal)
CPT/HCPCS: 81001; 87077; 87086; 87185; 87186

== ENCOUNTER → 2021-08-29 11:57 | Outpatient (CLI) | payer MEDICARE, OTHER, SELFPAY ==
[2021-08-30 12:50] LABS: Appearance Urine UA CLEAR; Bilirubin Urine UA NEGATIVE (NEGATIVE); Color Urine UA YELLOW; Glucose Urine UA NEGATIVE (Negative); Ketones Urine UA NEGATIVE (NEGATIVE); Leukocyte Esterase Urine UA NEGATIVE (NEGATIVE); Nitrite Urine UA NEGATIVE (Negative); Occult Blood Urine UA NEGATIVE (Negative); Protein Urine UA NEGATIVE (Negative); Specific Gravity Urine UA 1.015 (1.000-1.035)
[2021-08-30 13:03] LABS: Bacteria Urine None Seen; Culture Indicated Urine Cult Not Indicated; Mucus Urine 1+ (Negative); RBC Urine None Seen (0-5/HPF); Squamous Epithelial Cell Urine 0-1 /HPF (0-5/HPF); WBC Urine 0-1/HPF (0-5/HPF)
== END ==
PROVIDERS: PCP Family Medicine Sports Medicine; Referring Provider Family Medicine Sports Medicine; Visit Provider Family Medicine Sports Medicine
DX: N39.0 Urinary tract infection, site not specified (principal)
CPT/HCPCS: 81001

== ENCOUNTER → 2021-11-08 10:07 | Outpatient (CLI) | payer MEDICARE, OTHER, SELFPAY ==
[2021-11-08 11:50] LABS: Add Manual Diff / Slide Review NO; Basophils Absolute Auto 0 /uL (0-100); Basophils Percent Auto 1.1 % (0-2); Eosinophils Absolute Auto 200 /uL (0-450); Hematocrit 42.5 % (41-53); Hemoglobin 14.2 g/dL (13.5-17.5); Lymphocytes Absolute Auto 900 /uL (1100-4500); Lymphocytes Percent Auto 23.9 % (25-40); Mean Corpuscular HGB Conc 33.5 % (30-36); Mean Corpuscular Hemoglobin 32.3 PG (26-34); Mean Corpuscular Volume 96.4 fL (80-100); Monocytes Absolute Auto 600 /uL (0-900); Monocytes Percent Auto 14.2 % (3-14); Neutrophils Absolute Auto 2200 /uL (1500-7000); Neutrophils Percent Auto 55.8 % (50-75); Platelet Count 145 X10^3/uL (150-400); Red Blood Cell Count 4.41 X10^6/uL (4.5-5.9); Red Cell Distribution Width 13.7 % (11.6-14.8); White Blood Cell Count 3.9 X10^3/uL (4.5-11.0)
[2021-11-08 12:07] LABS: Hemoglobin A1C% w Est Avg Glu 5.3 % (4.0-6.0)
[2021-11-08 12:16] LABS: Alanine Aminotransferase 35 IU/L (<50); Albumin 4.3 g/dL (3.5-5.0); Albumin Globulin Ratio 1.5 (1.0-2.8); Alkaline Phosphatase 69 U/L (38-126); Aspartate Aminotransferase 51 IU/L (17-59); BUN Creatinine Ratio 22.2 (6-22); Bilirubin Total 0.5 mg/dL (0.2-1.3); Blood Urea Nitrogen 20 mg/dL (9-20); Calcium 9.4 mg/dL (8.4-10.2); Carbon Dioxide 24 mmol/L (22-32); Chloride 111 mmol/L (98-107); Cholesterol 173 mg/dL (140-199); Estimated Glomerular Filt Rate > 60.0 mL/min (>60); Gamma Glutamyl Transpeptidase 44 U/L (15-73); Globulin 2.9 g/dL (1.7-4.1); Glucose 87 mg/dL (80-110); HDL Cholesterol 79 mg/dL (40-60); HEMOLYSIS < 15 (0-50); LDL Cholesterol Calculated 79 mg/dL (<100); Magnesium 1.9 mg/dL (1.6-2.3); Potassium 3.7 mmol/L (3.4-5.1); Sodium 143 mmol/L (137-145); Total Protein 7.2 g/dL (6.3-8.2); Triglycerides 73 mg/dL (35-150)
[2021-11-08 12:27] LABS: NT-proBNP (BNP-Adult 18+) 148 pg/mL (<450); Troponin I < 0.012 ng/mL (0.01-0.034)
[2021-11-08 12:33] LABS: Thyroid Stimulating Hormone 1.51 uIU/mL (0.47-4.68)
[2021-11-08 12:45] LABS: Prostate Specific Antigen 1.78 ng/mL (0.10-4.00)
[2021-11-08 14:18] LABS: C-Reactive Protein Quant 1.6 mg/dL (<1.0)
[2021-11-08 14:19] LABS: High Sensitivity CRP - Cardiac > 15.0 mg/L (1.0-3.0)
[2021-11-09 04:34] LABS: Homocysteine 13.1 umol/L (0.0-19.2)
[2021-11-09 08:36] LABS: Insulin Level Total 8.1 uIU/mL (2.6-24.9)
[2021-11-09 17:17] LABS: Vitamin D 25 Hydroxy (D3) 66.9 ng/mL (30.0-100.0)
== END ==
PROVIDERS: Family Provider Family Medicine Sports Medicine; PCP Family Medicine Sports Medicine; Referring Provider Family Medicine Sports Medicine; Visit Provider Family Medicine Sports Medicine
DX: R74.01 Elevation of levels of liver transaminase levels (principal); R73.09 Other abnormal glucose; I10 Essential (primary) hypertension; E55.9 Vitamin D deficiency, unspecified; M79.7 Fibromyalgia; F41.9 Anxiety disorder, unspecified; E72.11 Homocystinuria; E78.5 Hyperlipidemia, unspecified; I65.29 Occlusion and stenosis of unspecified carotid artery; G47.00 Insomnia, unspecified; E03.9 Hypothyroidism, unspecified
CPT/HCPCS: 36415; 80053; 80061; 82306; 82977; 83036; 83090; 83525; 83721; 83735; 83880; 84153; 84443; 84484; 85025; 86140

== ENCOUNTER → 2021-11-09 10:52 | Outpatient (CLI) | payer MEDICARE, OTHER, SELFPAY ==
[2021-11-09 12:25] LABS: Creatinine Urine Random 165.4 mg/dL
[2021-11-09 12:30] LABS: Microalbumi Creatinin Ratio Ur 12.6 ug/mg CR (<30); Microalbumin Urine Random 2.1 mg/dL (0-1.6)
== END ==
PROVIDERS: Family Provider Family Medicine Sports Medicine; PCP Family Medicine Sports Medicine; Referring Provider Family Medicine Sports Medicine; Visit Provider Family Medicine Sports Medicine
DX: E72.11 Homocystinuria (principal); E55.9 Vitamin D deficiency, unspecified; I10 Essential (primary) hypertension; E78.5 Hyperlipidemia, unspecified; I65.29 Occlusion and stenosis of unspecified carotid artery; G47.00 Insomnia, unspecified; R73.09 Other abnormal glucose; E03.9 Hypothyroidism, unspecified; M79.7 Fibromyalgia; F41.9 Anxiety disorder, unspecified; R74.01 Elevation of levels of liver transaminase levels
CPT/HCPCS: 81105; 82043; 82570; 85385

== ENCOUNTER → 2022-01-18 11:07 | Outpatient (CLI) | payer MEDICARE, OTHER, SELFPAY ==
[2022-01-18 11:53] LABS: COVID19 -Nasal RAPID Negative (Negative)
== END ==
PROVIDERS: Family Provider Family Medicine Sports Medicine; PCP Family Medicine Sports Medicine; Referring Provider Internal Medicine; Visit Provider Internal Medicine
DX: Z20.822 Contact with and (suspected) exposure to COVID-19 (principal)
CPT/HCPCS: 87635; C9803

== ENCOUNTER → 2022-01-18 14:45 | Outpatient (CLI) | payer MEDICARE, OTHER, SELFPAY ==
[2022-01-18 16:26] LABS: C-Reactive Protein Quant < 0.5 mg/dL (<1.0)
[2022-01-18 16:32] LABS: Fibrinogen 257 mg/dL (211-428)
[2022-01-19 13:01] LABS: Creatinine Urine Random 313.5 mg/dL
[2022-01-19 13:06] LABS: Microalbumi Creatinin Ratio Ur 9.2 ug/mg CR (<30); Microalbumin Urine Random 2.9 mg/dL (0-1.6)
== END ==
PROVIDERS: Family Provider Family Medicine Sports Medicine; PCP Family Medicine Sports Medicine; Referring Provider Family Medicine Sports Medicine; Visit Provider Family Medicine Sports Medicine
DX: I10 Essential (primary) hypertension (principal); E78.5 Hyperlipidemia, unspecified; M79.7 Fibromyalgia; Z20.822 Contact with and (suspected) exposure to COVID-19
CPT/HCPCS: 36415; 82043; 82570; 85384; 86140; 87635; C9803

== ENCOUNTER → 2022-01-19 10:47 | Outpatient (CLI) | payer MEDICARE, OTHER, SELFPAY ==
--- NOTE | 2022-01-19 | DI.RAD.S_ITS ---
PROCEDURE: XR HIP W PEL IF DONE BILAT 2V INDICATIONS: HIP PAIN TECHNIQUE: AP pelvis with lateral view(s) of the bilateral hip(s). COMPARISON: [facility], CT, ABDOMEN/PELVIS WITHOUT CONTRAS, 03/07/2017, 8:09. [facility], CR, XR HIP W PEL IF DONE RT 2V, 04/04/2021, 11:16. FINDINGS: Bones: No fractures or dislocations. Increased sclerosis of the femoral heads, which is nonspecific and may represent superimposed osseous structures. Pelvic ring appears intact. No suspicious bony lesions. Soft tissues: The visualized bowel gas pattern is normal. No suspicious soft tissue calcifications. Surgical clips project over the left pelvis. IMPRESSION: No acute osseous abnormality. Dictated by: Arnel Sharma M.D. on 01/19/2022 at 12:51 Approved by: Arnel Sharma M.D. on 01/19/2022 at 12:54
--- NOTE | 2022-01-24 10:28 | PM.PFT.1 ---
Pulmonary Function Test Referral & Results Date Patient Seen: 01/19/22 Requesting provider: Reji Car Results: The spirometry demonstrates an FVC of 3.37 L which is 75% of predicted. The FEV1 was measured at 2.52 L which is 78% of predicted. The FEV1/FVC ratio was 75 which is 103% of predicted. Following the administration of bronchodilator there was no appreciable change. Interpretation: This study demonstrates perhaps mild obstructive lung disease based on reduction FEV1 although FEV1/FVC ratio is preserved. Shape a flow volume loop is also supportive of very mild obstructive lung disease Compared to PFTs performed in March 2016, current study is essentially unchanged.
== END ==
PROVIDERS: Family Provider Family Medicine Sports Medicine; PCP Family Medicine Sports Medicine; Referring Provider Family Medicine Sports Medicine; Visit Provider Family Medicine Sports Medicine
DX: J44.9 Chronic obstructive pulmonary disease, unspecified (principal); M25.559 Pain in unspecified hip
CPT/HCPCS: 73521; 94060

== ENCOUNTER → 2022-02-13 13:46 | Outpatient (CLI) | payer MEDICARE, OTHER, SELFPAY ==
--- NOTE | 2022-02-13 13:48 | DI.RAD.S_ITS ---
PROCEDURE: XR LUMBAR SPINE MIN 4V INDICATIONS: BACK PAIN TECHNIQUE: 5 views of the lumbar spine were acquired, including bilateral oblique views. COMPARISON: [facility], , XR LUMBAR SPINE MIN 4V, 05/10/2020, 10:16. FINDINGS: Bones: Convex right lumbar scoliosis present. There is diffuse advanced degenerative disc space narrowing and marginal osteophytes present. Oblique images are unremarkable. Soft tissues: Overlying bowel gas pattern is normal. Atherosclerotic vascular calcification and surgical clips in the left pelvic sidewall noted. Oblique images: No pars defects. IMPRESSION: 1. Multilevel degenerative disc disease and arthropathy results in lumbar dextroscoliosis. Approved by: Mushtaq Frost M.D. on 02/13/2022 at 18:10
== END ==
PROVIDERS: Family Provider Family Medicine Sports Medicine; PCP Family Medicine Sports Medicine; Referring Provider Physical Medicine & Rehabilitation; Visit Provider Physical Medicine & Rehabilitation
DX: M47.817 Spondylosis without myelopathy or radiculopathy, lumbosacral region (principal); M47.816 Spondylosis without myelopathy or radiculopathy, lumbar region; M51.36 Other intervertebral disc degeneration, lumbar region; M41.86 Other forms of scoliosis, lumbar region; M48.07 Spinal stenosis, lumbosacral region; M51.37 Other intervertebral disc degeneration, lumbosacral region; M17.11 Unilateral primary osteoarthritis, right knee; G03.9 Meningitis, unspecified; Z96.652 Presence of left artificial knee joint
CPT/HCPCS: 72110; 99215

== ENCOUNTER 2022-03-27 09:36 | Outpatient (CLI) | payer MEDICARE, OTHER, SELFPAY ==
--- NOTE | 2022-03-27 09:39 | DI.RAD.S_ITS ---
PROCEDURE: PAIN L/S FACET INJ/BLK 1ST GIORGI COMPARISON: None. INDICATIONS: SPONDYLOSIS FINDINGS: Access needles noted at the bilateral L4, L5 and S1 pedicles. Injection of small amount of contrast material demonstrates the access needles are extra thecal. IMPRESSION: Access needles at the bilateral L4, L5 and S1 pedicles for bilateral L4, L5 and S1 medial branch block. Dictated by: Rocio Cronin MD, PhD on 03/27/2022 at 12:09 Approved by: Rocio Cronin MD, PhD on 03/27/2022 at 12:10
[2022-03-27 10:40] VITALS: BP 116/69; PULSE 70; RESP 16; TEMP 36.7; O2SAT 94
[2022-03-27 10:50] LABS: COVID19 -Nasal RAPID Negative (Negative)
[2022-03-27 11:14] VITALS: BP 144/76; PULSE 68; RESP 17; O2SAT 95
[2022-03-27] MEDS: BUPIVACAINE 0.5% (PF) VIAL 5 ML INJ (11:14)
[2022-03-27] MEDS: LIDOCAINE 1% (PF) 5 ML INJ (11:15)
[2022-03-27] MEDS: IOPAMIDOL 15 ML VIAL 3 ML INJ (11:15)
[2022-03-27 11:19] VITALS: BP 135/77; PULSE 70; RESP 15; O2SAT 92
[2022-03-27 11:24] VITALS: BP 136/82; PULSE 68; RESP 19; O2SAT 92
--- NOTE | 2022-03-27 11:29 | PM.PROC.IR.1 ---
Date/Time/Diagnoses Date of procedure: 03/27/22 Time of procedure: 11:29 Pre-procedure diagnosis: 1. FACET ARTHROPATHY Post-procedure diagnosis: same Procedure Notes Procedure: 1. BILATERAL- L4, L5 and S1 DIAGNOSTIC MB BLOCKS with LA Anesthetic Indications: Hernandez is referred by Dr. Car for treatment of Bilateral Axial LBP. Physician: Rome Rob Total Fluoroscopy time (seconds): 12 Total sedation minutes: 0 Complications: none Procedure in detail & Post-procedure care: DESCRIPTION OF PROCEDURE Fluoroscopically guided, contrast-controlled bilateral L4, L5 and S1 medial branch blocks with 0.5cc of 0.5% Marcaine. Following review of allergy and review of potential side effects and complications, including, but not necessarily limited to, infection, allergic reaction, local tissue breakdown, nerve injury, paralysis, stroke and possible , the patient indicated that the patient understood and agreed to proceed. An informed consent document was signed by the patient, witnessed by a nurse, and placed in the patient's chart. After review of previous anaesthesic history and IV conscious sedation the patient was deemed safe to proceed with today's procedure with IV conscious sedation as ASA class II designation. Safety time-out was performed to confirm patient ID, procedure to be performed and site of procedure. IV sedation was deemed unnecessary and thus was not administered by the RN after DO order, titrated to patient comfort during the course of the procedure while the patient remained responsive to all verbal commands In the prone position, following sterile prep and drape of the lumbar region, the right L4, L5 and S1 anatomical location of the medial branch of the dorsal ramus was identified fluoroscopically. Subsequently an anesthetic skin wheal using 1% lidocaine solution was initiated at each of the anatomical spots. Subsequently then a 22-gauge 3.5-inch spinal needle was atraumatically introduced and advanced under fluoroscopic guidance at each of the corresponding sites at the right L4, L5 and S1 MB. After negative aspiration, 0.2cc of Isovue 200 was injected, confirming placement without vascular or intrathecal uptake. Subsequently then 0.5cc of 0.5% Marcaine solution was injected at each of the corresponding sites at the right L4, L5 and S1 medial branch locations. The identical procedure was replicated on the left. The patient tolerated the procedure well without signs or symptoms of complications prior to transfer to the recovery area continued monitoring without incident. Post-procedure, the patient was monitored initiating provocative activities to measure the amount of relief from block of the facetogenic pain. The patient reported a VAS of 7 prior to the procedure and a post-procedure VAS of 1. It has been a pleasure to assist in the diagnostic and therapeutic care of your patient. POST OP INSTRUCTIONS The patient was provided with a Pain Log to complete over the next several hours and subsequent days prior to the patient's follow up with the ordering physician. If the patient has white sidewall tire buffer relief to the solution applied, then they may be a candidate for medial branch rhizotomy. The patient is aware, was provided, once again, with a Pain Log and will follow up with the referring physician for review and clinical correlation
[2022-03-27 11:30] VITALS: BP 129/78; PULSE 68; RESP 16; O2SAT 96
[2022-03-27 11:35] VITALS: BP 136/82; PULSE 67; RESP 18; O2SAT 96
== END 2022-03-27 11:39 | disposition home or self-care (01) ==
LOC: RAD 09:38
PROVIDERS: Family Provider Family Medicine Sports Medicine; PCP Family Medicine Sports Medicine; Referring Provider Physical Medicine & Rehabilitation; Visit Provider Physical Medicine & Rehabilitation
DX: M47.816 Spondylosis without myelopathy or radiculopathy, lumbar region (principal); M47.817 Spondylosis without myelopathy or radiculopathy, lumbosacral region; Z20.822 Contact with and (suspected) exposure to COVID-19
CPT/HCPCS: 64493; 64494; 87635

== ENCOUNTER → 2022-06-04 11:12 | Outpatient (CLI) | payer MEDICARE, OTHER, SELFPAY ==
[2022-06-04 13:45] LABS: COVID19 -Nasal RAPID Negative (Negative)
== END ==
PROVIDERS: Family Provider Family Medicine Sports Medicine; PCP Family Medicine Sports Medicine; Visit Provider Physical Medicine & Rehabilitation
DX: Z20.822 Contact with and (suspected) exposure to COVID-19 (principal)
CPT/HCPCS: 87635; C9803

== ENCOUNTER 2022-06-05 10:37 | Outpatient (CLI) | payer MEDICARE, OTHER, SELFPAY ==
[2022-06-05] VITALS (12 sets, daily range): BP systolic 92–115; BP diastolic 55–61; PULSE 67–79; RESP 14–21; TEMP 36.2; O2SAT 94–97
--- NOTE | 2022-06-05 10:39 | DI.RAD.S_ITS ---
PROCEDURE: PAIN L/S MED/LAT N RFA BILAT INDICATIONS: SPONDYLOSIS COMPARISON: [facility], XA, PAIN L/S MED/LAT N RFA BILAT, 03/29/2020, 7:46. [facility], XA, PAIN L/S FACET INJ/BLK 1ST GIORGI, 03/27/2022, 11:14. FINDINGS: Fluoroscopic spot filming was performed to verify placement of spinal needles on both sides at the L4, L5, and S1 levels, as labeled on the films. IMPRESSION: Images during rhizotomy within normal limits. Dictated by: Reece Guillen M.D. on 06/05/2022 at 12:02 Approved by: Reece Guillen M.D. on 06/05/2022 at 12:02
[2022-06-05] MEDS: BUPIVACAINE 0.5% (PF) VIAL 5 ML INJ (11:47)
[2022-06-05] MEDS: LIDOCAINE 1% 20 ML 5 ML INJ (11:48)
[2022-06-05] MEDS: MIDAZOLAM 2 MG/2 ML VIAL 4 MG IV (12:02)
--- NOTE | 2022-06-05 12:23 | P.PCN_ITS ---
Date/Time/Diagnoses Date of procedure: 06/05/22 Time of procedure: 12:24 Pre-procedure diagnosis: 1. RECALCITRANT FACET ARTHROPATHY Post-procedure diagnosis: same Procedure Notes Procedure: 1. BILATERAL L4 AND L5 MEDIAL BRANCH RADIOFREQUENCY NEUROTOMY AND S1 DORSAL RAMUS BRANCH RADIOFREQUENCY NEUROTOMY Indications: Hernandez is referred by Dr. Car for treatment of facet arthropathy. Physician: Rome Rob Total Fluoroscopy time (seconds): 20 Total sedation minutes: 32 Complications: none Procedure in detail & Post-procedure care: DESCRIPTION OF PROCEDURE Bilateral L4 and L5 medial branch radiofrequency neurotomy and bilateral S1 dorsal ramus radiofrequency neurotomy under fluoroscopy with conscious sedation. The patient is well known to this clinic having undergone previous facet injections with good but temporary relief. The patient has experienced appropriate, concordant relief with previous facet and median branch blocks but the patient's pain has been recalcitrant to further conservative measures. Therefore, based upon the patient's relief and persistent symptoms, the patient is considered an appropriate candidate for facet rhizotomy. All of the patient's questions regarding the risks versus benefits of the procedure, including, but not limited to, bleeding, infection, temporary as well as lasting nerve injury, paralysis, stroke, and , as well treatment alternatives were answered to satisfaction. After obtaining informed consent, denial of pertinent drug allergies, as well as being made aware of the potential risks of bleeding, infection, spinal cord trauma, paralysis, temporary and permanent nerve damage, seizure, stroke, and possible , the patient was brought to the fluoroscopy suite and positioned prone on the fluoroscopy table. The lumbar region was prepped with Betadine and covered with a fenestrated drape in the usual sterile fashion. Appropriate monitors applied including pulse oximeter, pulse, and blood pressure for regular monitoring throughout the procedure. After review of previous anaesthesic history and IV conscious sedation the patient was deemed safe to proceed with today's procedure with IV conscious sedation as ASA class II designation. Safety time-out was performed to confirm patient ID, procedure to be performed and site of procedure. IV sedation was accomplished with a combination of 4mg of Versed administered by the RN after DO order, titrated to patient comfort during the course of the procedure while the patient remained responsive to all verbal commands. After local infiltration using 1% lidocaine, under fluoroscopic guidance, a 10- cm RF insulated needle with a 10-mm active tip was positioned parallel to the junction of the right sacral ala and the superior articulating process where the S1 dorsal ramus resides. Needle placement was confirmed with motor stimulation of .5v on the right which produced local stimulation without radicular component. The stimulation was then increased to 2v with, once again, only local multifidus stimulation without radicular component. The needle was then removed and the identical procedure was performed along the length of the right L5 medial branch with motor stimulation at .7v on the right. The identical procedure was once again performed along the length of the right L4 medial branch with motor stimulation of .5v on the right. The medial branches were then anesthetised with 0.5% Marcaine. This was then followed by two discreet lesions performed at 80 degrees Celsius for 90 seconds each. The identical procedure was repeated on the left. The patient tolerated the procedure well without signs or symptoms of complications prior to transfer to the recovery area continued monitoring without incident. The patient was then transferred to the recovery area where they were observed for an appropriate period of time after the injection. The patient reported a VAS score of 9 prior to the procedure and a post-procedure VAS of 0. POST OP INSTRUCTIONS The patient was provided a Pain Log to continue to record the patient's response to the target-specific procedure prior to the patient's follow-up visit with the referring physician. Additionally, specific post-injection care instructions and a contact number to our office were provided if concerns arise regarding possible complications associated with the procedure are suspected.
== END 2022-06-05 12:40 | disposition home or self-care (01) ==
LOC: RAD 10:38
PROVIDERS: Family Provider Family Medicine Sports Medicine; PCP Family Medicine Sports Medicine; Referring Provider Physical Medicine & Rehabilitation; Visit Provider Physical Medicine & Rehabilitation
DX: M47.817 Spondylosis without myelopathy or radiculopathy, lumbosacral region (principal); M47.816 Spondylosis without myelopathy or radiculopathy, lumbar region
CPT/HCPCS: 64635; 64636; 99152; 99153; J2250

== ENCOUNTER → 2022-09-27 10:55 | Outpatient (CLI) | payer MEDICARE, OTHER, SELFPAY ==
[2022-09-27 11:49] LABS: COVID19 -Nasal RAPID Negative (Negative)
== END ==
PROVIDERS: Family Provider Family Medicine Sports Medicine; PCP Family Medicine Sports Medicine; Visit Provider Surgery
DX: Z20.822 Contact with and (suspected) exposure to COVID-19 (principal); Z01.812 Encounter for preprocedural laboratory examination
CPT/HCPCS: 87635; C9803

== ENCOUNTER 2022-09-28 09:40 | Day surgery (SDC) | payer MEDICARE, OTHER, SELFPAY ==
--- NOTE | 2022-09-28 | PATH_ITS ---
[facility] Accession Number: [id number] . 01 Material submitted: . rectum - RECTAL POLYPS . 01 Diagnosis: Rectum, Polyps, Biopsies: Hyperplastic polyps. JNL 10/01/20222037 Local . 01 Electronically signed: . Marianna Louis MD, Pathologist NPI- [id number] . 01 Gross description: . RECTAL POLYPS: Received in formalin is 1 fragment(s) of torre, soft tissue measuring 0.4 x 0.2 x 0.2 cm submitted entirely in 1 cassette(s) /CPE 09/29/2022 0703 Local . 01 Pathologist provided ICD-10: K62.1 . 01 CPT . 478679 Specimen Comment: A courtesy copy of this report has been sent to [facility] Pathology Performed at: 01 [facility] Cytology [address] [place] [address] [id number] MD Mychal Ritter MD Phone: [phone]
--- NOTE | 2022-09-28 10:22 | PM.PREOP ---
Pre-operative Note Interval Note History & Physical reviewed/Exam performed by Physician: Yes Changes to H&P: No H&P completed within 30 days and has changed as indicated here:: See Dr. Leone H& P from office 08/20/2022. I repeated this today and confirmed that there have been no changes. Mr. Fitzpatrick states today that he is had at least 2 colonoscopies in the he has no family history of colon cancer and has had some bleeding from wiping only with the prep but this is not something that he has dealt with ongoing in the past. He is upset today because he feels that he has been asked to bring his medication list several times. Thinks the office is disorganized. He understands the risks and benefits of colonoscopy I discussed with him in particular the possibility of an incomplete exam and perforation.
[2022-09-28] MEDS: LACTATED RINGERS 1,000 ML 100 ML IV (10:35)
[2022-09-28 13:23] VITALS: BP 113/64; PULSE 69; RESP 17; TEMP 36.6; O2SAT 97
[2022-09-28 13:28] VITALS: BP 123/74; PULSE 73; RESP 10; O2SAT 97
[2022-09-28 13:33] VITALS: BP 124/73; PULSE 77; RESP 17; O2SAT 98
[2022-09-28 13:38] VITALS: BP 130/75; PULSE 77; RESP 17; O2SAT 98
--- NOTE | 2022-09-28 17:16 | PM.OP.COLON ---
Procedure & Clinicians Study performed: Colonoscopy Same procedure as scheduled: Yes Indications: Screening Surgeon: Sima Bush Procedure Notes Procedure in detail: Patient was taken to the endoscopy suite and placed in a left lateral decubitus position. A time-out was performed. Monitored anesthetic care was provided. A digital rectal exam was performed. The colonoscope was placed into the anal canal and advanced through to the cecum. A photograph was taken of the appendiceal orifice the scope was then withdrawn slowly. The withdrawal time was 15 minutes. There were a few small rectal polyps that had hyperplastic look these were biopsied and sent together in 1 specimen jar. Additionally there were multiple scattered diverticula especially throughout the sigmoid colon. Complications: none Impression: Based on the pathology follow-up may be between 5-10 years. If the polyps are hyperplastic a 10 year follow-up is appropriate. Unless there is a change in his family history or he develops alarming symptoms.
== END 2022-09-28 14:03 | disposition home or self-care (01) ==
PROVIDERS: Family Provider Family Medicine Sports Medicine; PCP Family Medicine Sports Medicine; Referring Provider Surgery; Visit Provider Surgery
PROC: 0DJD8ZZ Inspection of Lower Intestinal Tract, Via Natural or Artificial Opening Endoscopic (ICD-10-PCS; CPT 45378; principal; 2022-09-28 10:45)
DX: Z12.11 Encounter for screening for malignant neoplasm of colon (principal); K57.30 Diverticulosis of large intestine without perforation or abscess without bleeding; K62.1 Rectal polyp
CPT/HCPCS: 45380; J2704

== ENCOUNTER → 2022-11-16 09:51 | Outpatient (CLI) | payer MEDICARE, OTHER, SELFPAY ==
--- NOTE | 2022-11-16 | DI.RAD.S_ITS ---
PROCEDURE: XR HIP W PEL IF DONE GIORGI MIN 4V INDICATIONS: Peripheral vascular disease; Osteoporosis/BI HIP P TECHNIQUE: AP pelvis with lateral view(s) of the bilateral hip(s). COMPARISON: [facility], , XR HIP W PEL IF DONE BILAT 2V, 01/19/2022, 10:44. FINDINGS: Bones: No definite acute fracture seen. Moderate lower lumbar spondylosis. Degenerative changes of the bilateral hips more pronounced on the left. There is mild loss of normal sphericity at the bilateral femoral head neck junction. Pelvic ring appears intact. No suspicious bony lesions. Soft tissues: The visualized bowel gas pattern is normal. No suspicious soft tissue calcifications. Multiple surgical clips project over the left sacrum. IMPRESSION: Bilateral hip and pelvis without acute fracture or dislocation. 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 Lower lumbar spondylosis Dictated by: Lio Koenig M.D. on 11/16/2022 at 15:19 Approved by: Lio Koenig M.D. on 11/16/2022 at 15:21
== END ==
PROVIDERS: Family Provider Family Medicine Sports Medicine; PCP Family Medicine Sports Medicine; Referring Provider Family Medicine Sports Medicine; Visit Provider Family Medicine Sports Medicine
DX: I73.9 Peripheral vascular disease, unspecified (principal); M25.552 Pain in left hip; M16.0 Bilateral primary osteoarthritis of hip; M47.816 Spondylosis without myelopathy or radiculopathy, lumbar region; Z13.820 Encounter for screening for osteoporosis; M25.551 Pain in right hip; M85.851 Other specified disorders of bone density and structure, right thigh
CPT/HCPCS: 73522; 77080

== ENCOUNTER → 2022-12-13 10:15 | Outpatient (CLI) | payer MEDICARE, OTHER, SELFPAY ==
--- NOTE | 2022-12-13 | DI.US.S_ITS ---
PROCEDURE: US ARTERIAL DUPLEX LE BI INDICATIONS: PERIPHERAL VASCULAR DISEASE TECHNIQUE: Color and pulse Doppler interrogation was performed of both lower extremity arterial systems, with image documentation. COMPARISON: None. FINDINGS: Right lower extremity: Common femoral artery: 77.7 cm/sec, with triphasic flow. Deep femoral artery: 48.6 cm/sec, with triphasic flow. Proximal superficial femoral artery: 78.1 cm/sec, with triphasic flow. Mid superficial femoral artery: 74.1 cm/sec, with triphasic flow. Distal superficial femoral artery: 75.7 cm/sec, with triphasic flow. Popliteal artery: 60.6 cm/sec, with triphasic flow. Posterior tibial artery: 45.2 cm/sec, with triphasic flow. Anterior tibial artery/dorsalis pedis: 65.3 cm/sec, with triphasic flow. Tony-scale imaging description: Patent vessels with normal waveforms. Left lower extremity: Common femoral artery: 83.1 cm/sec, with triphasic flow. Deep femoral artery: 45.1 cm/sec, with biphasic flow. Proximal superficial femoral artery: 76.2 cm/sec, with triphasic flow. Mid superficial femoral artery: 77.3 cm/sec, with triphasic flow. Distal superficial femoral artery: 55.0 cm/sec, with triphasic flow. Popliteal artery: 66.2 cm/sec, with triphasic flow. Posterior tibial artery: 75.4 cm/sec, with triphasic flow. Anterior tibial artery/dorsalis pedis: 43.1 cm/sec, with biphasic flow. Tony-scale imaging description: Patent vessels with normal waveforms. IMPRESSION: No significant arterial stenotic disease in the lower extremities bilaterally. No evidence of inflow stenosis. Normal waveforms. Dictated by: Guerrero Porras M.D. on 12/13/2022 at 12:15 Approved by: Guerrero Porras M.D. on 12/13/2022 at 12:18
--- NOTE | 2022-12-13 10:19 | DI.MRI.S_ITS ---
PROCEDURE: MR LUMBAR SPINE WO CON INDICATIONS: Multilevel lumbosacral spondylosis with associated right low TECHNIQUE: Noncontrast sagittal T1 spin echo and T2 fast echo, sagittal STIR, and T2 fast spin echo through the lumbar spine. In cases with scoliosis, additional coronal T2 fast spin echo may be performed. COMPARISON: [facility], , MR LUMBAR SPINE WO CON, 05/10/2020, 10:02. FINDINGS: Image quality: Excellent. Alignment and Curvature: Rightward curvature of the lumbar spine with a Galvan angle of 16?. Bone Marrow: Modic type 2 fatty bone marrow conversion changes are noted at the L2-3, L3-4, L4-5, and L5-S1 endplates. Spinal Cord: Conus medullaris terminates at the L1 level. Visualized cord demonstrates normal signal and size. Paraspinous Soft Tissues: No paravertebral masses. T12-L1: Disc space narrowing with a rightward disc bulge causes mild right foraminal stenosis. The left foramen is patent. The central canal has mild stenosis. L1-L2: Rightward disc bulge causes mild right foraminal stenosis. The left foramen is patent. The central canal has mild stenosis. L2-L3: Disc space narrowing, disc osteophytes, and a diffuse disc bulge cause mild bilateral foraminal stenosis. The central canal is patent. L3-L4: Disc space narrowing, disc osteophytes, and a diffuse disc bulge cause moderate bilateral foraminal stenosis. The central canal has mild stenosis. L4-L5: Disc space narrowing, disc osteophytes, facet hypertrophy, and a diffuse disc bulge cause moderate bilateral foraminal stenosis. L5-S1: Disc space narrowing, disc osteophytes, facet hypertrophy, and a diffuse disc bulge cause moderate bilateral foraminal stenosis. IMPRESSION: 1. Multilevel lumbar spondylosis, unchanged compared to 05/10/2020. 2. Multilevel foraminal and central canal stenosis as detailed above. 3. Clumping of the nerve roots in the lower lumbar spine from L4 through S1. Dictated by: Fortino Macedo M.D. on 12/13/2022 at 12:08 Approved by: Fortino Macedo M.D. on 12/13/2022 at 12:18
== END ==
PROVIDERS: Family Provider Family Medicine Sports Medicine; PCP Family Medicine Sports Medicine; Referring Provider Family Medicine Sports Medicine; Visit Provider Family Medicine Sports Medicine
DX: M47.27 Other spondylosis with radiculopathy, lumbosacral region (principal); I73.9 Peripheral vascular disease, unspecified; M48.061 Spinal stenosis, lumbar region without neurogenic claudication; M47.26 Other spondylosis with radiculopathy, lumbar region; M48.07 Spinal stenosis, lumbosacral region
CPT/HCPCS: 72148; 93925

== ENCOUNTER 2023-01-17 09:49 | Outpatient (CLI) | payer MEDICARE, OTHER, SELFPAY ==
[2023-01-17] VITALS (8 sets, daily range): BP systolic 100–127; BP diastolic 63–77; PULSE 52–64; RESP 16–20; TEMP 36.5; O2SAT 94–97
--- NOTE | 2023-01-17 09:51 | DI.RAD.S_ITS ---
PROCEDURE: PAIN L/S TRANSFORAMINAL INJECT INDICATIONS: SPONDYLOSIS COMPARISON: [facility], , PAIN L/S TRANSFORAMINAL INJECT, 11/19/2019, 13:47. FINDINGS: Fluoroscopic spot filming was performed to verify placement of spinal needles at the right L3-L4 level(s), as labeled on the films. Appropriate location(s) of the needle tip(s) was confirmed by injection of iodinated contrast. IMPRESSION: Image guidance provided. Dictated by: Juwan Sykes M.D. on 01/17/2023 at 13:24 Approved by: Juwan Sykes M.D. on 01/17/2023 at 13:26
[2023-01-17] MEDS: MIDAZOLAM 2 MG/2 ML VIAL IV (11:00)
[2023-01-17] MEDS: IOPAMIDOL 15 ML VIAL 3 ML INJ (11:03)
[2023-01-17] MEDS: DEXAMETHASONE 10 MG/ML VIAL 20 MG INJ (11:03)
[2023-01-17] MEDS: BETAMETHASONE 30 MG/5 ML MDV 12 MG IM (11:04)
[2023-01-17] MEDS: BUPIVACAINE 0.25% (PF) VIAL 5 ML SUBCUT (11:04)
--- NOTE | 2023-01-17 11:13 | P.PCN_ITS ---
Date/Time/Diagnoses Date of procedure: 01/17/23 Time of procedure: 11:13 Pre-procedure diagnosis: 1. FORAMINAL STENOSIS WITH LE SYMPTOMS Post-procedure diagnosis: same Procedure Notes Procedure: 1. FLUOROSCOPICALLY GUIDED CONTRAST CONTROLLED TRANSFORAMINAL EPIDURAL STEROID INJECTION - RIGHT L3/4 TFESI Indications: Hernandez is referred by Dr. Car for treatment of Foraminal Stenosis with right LE Symptoms Physician: Rome Rob Total Fluoroscopy time (seconds): 11 Total sedation minutes: 9 Complications: none Procedure in detail & Post-procedure care: FINDINGS Foraminal Nerve Root Compression secondary to disc disease and facet hypertrophy DESCRIPTION OF PROCEDURE Following review of allergy and review of potential side effects and complications, including, but not necessarily limited to, infection, allergic reaction, local tissue breakdown, stroke, temporary or permanent nerve injury, paralysis, and possible , the patient indicated that the patient understood and agreed to proceed. An informed consent document was signed by the patient, witnessed by a nurse, and placed in the patient's chart. Additionally, other treatment options including medications, modalities, and physical therapy were reviewed with the patient. After review of previous anaesthesic history and IV conscious sedation the patient was deemed safe to proceed with today?s procedure with IV conscious sedation as ASA class II designation. Safety time-out was performed to confirm patient ID, procedure to be performed and site of procedure. IV sedation was accomplished with a combination of 2mg of Versed was administered by the RN after DO order, titrated to patient comfort during the course of the procedure while the patient remained responsive to all verbal commands In the prone position following sterile prep and drape of the lumbar region, the right L3/4 posterior neuroforamen was identified fluoroscopically. The skin was anesthetized via a 25-gauge 1.5-inch needle with 1% lidocaine solution. At this point, a 25-gauge 3.5-inch spinal needle was atraumatically introduced and advanced under fluoroscopic guidance through the posterior right L3/4 neuroforamen to approximately the anterior aspect of the canal. Depth was confirmed on lateral view. Following negative aspiration, injection of approximately 1.5 cc of Isovue 200 under live fluoroscopy in the AP view confirmed excellent flow along the nerve root, into the epidural space without vascular or intrathecal uptake observed Radiological data, including multiple fluoroscopic views of the lumbosacral sp ine, reveal a spinal needle at the right L3/4 posterior neuroforamen. Subsequent views show flow of contrast material flowing superiorly and inferiorly along the nerve root confirming epidural flow. Subsequently, a test dose of 1.5 cc of 1% lidocaine solution was administered and patient was observed for two minutes for signs or symptoms of complications, including abdominal pain, shortness of breath, bilateral upper or lower extremity weakness, nausea and vomiting, prior to steroid injection. At this point, a total of 3cc or 20mg of dexamethasone and 6mg of betamethasone was injected without incident. The patient tolerated the procedure well without signs or symptoms of complications prior to transfer to the recovery area continued monitoring without incident. The patient was then transferred to the recovery area where they were observed for an appropriate time after the injection. The patient reported a VAS score of 7 prior to the procedure and a post-procedure VAS of 2. POST OP INSTRUCTIONS The patient was provided a Pain Log to continue to record their response to the target-specific procedure prior to follow-up visit with their referring physician. Additionally, specific post-injection care instructions and a contact number to our office were provided if concerns arise regarding possible complications associated with the procedure are suspected.
== END 2023-01-17 11:32 | disposition home or self-care (01) ==
LOC: RAD 09:51
PROVIDERS: Family Provider Family Medicine Sports Medicine; PCP Family Medicine Sports Medicine; Referring Provider Physical Medicine & Rehabilitation; Visit Provider Physical Medicine & Rehabilitation
DX: M48.061 Spinal stenosis, lumbar region without neurogenic claudication (principal); M51.16 Intervertebral disc disorders with radiculopathy, lumbar region
CPT/HCPCS: 64483; 99152; J0702; J1100; J2250; J3490

== ENCOUNTER 2023-03-21 13:33 | Outpatient (CLI) | payer MEDICARE, OTHER, SELFPAY ==
[2023-03-21] VITALS (9 sets, daily range): BP systolic 114–139; BP diastolic 63–92; PULSE 61–70; RESP 17–22; TEMP 36.8; O2SAT 92–98
--- NOTE | 2023-03-21 13:35 | DI.RAD.S_ITS ---
PROCEDURE: PAIN L/S FACET INJ/BLK 1ST GIORGI COMPARISON: [facility], , PAIN L/S FACET INJ/BLK 1ST GIORGI, 03/27/2022, 11:14. INDICATIONS: SPONDYLOSIS FINDINGS: Fluoroscopic spot filming was performed to verify placement of spinal needles on both sides at the L3 and L4 levels, as labeled on the films. Appropriate location of the needle tips was confirmed by injection of iodinated contrast. IMPRESSION: Intraprocedural examination demonstrating appropriate positions of the needles. Dictated by: Reece Guillen M.D. on 03/21/2023 at 18:24 Approved by: Reece Guillen M.D. on 03/21/2023 at 18:25
[2023-03-21] MEDS: MIDAZOLAM 2 MG/2 ML VIAL IV (14:23)
[2023-03-21] MEDS: LIDOCAINE 1% 20 ML 5 ML INJ (14:27)
[2023-03-21] MEDS: IOPAMIDOL 15 ML VIAL 3 ML INJ (14:27)
[2023-03-21] MEDS: BUPIVACAINE 0.5% (PF) 10 ML VIAL 5 ML INJ (14:27)
--- NOTE | 2023-03-21 14:37 | PM.PROC.IR.1 ---
Date/Time/Diagnoses Date of procedure: 03/21/23 Time of procedure: 14:37 Pre-procedure diagnosis: FACET ARTHROPATHY Post-procedure diagnosis: same Procedure Notes Procedure: 1. BILATERAL L3, L4 DIAGNOSTIC MB BLOCKS Indications: Hernandez is referred by Dr. Car for treatment of Bilateral Axial LBP. Physician: Rome Rob Total Fluoroscopy time (seconds): 12 Total sedation minutes: 12 Complications: none Procedure in detail & Post-procedure care: DESCRIPTION OF PROCEDURE Fluoroscopically guided, contrast-controlled bilateral L3, L4 medial branch blocks with 0.5cc of 0.5% Marcaine. Following review of allergy and review of potential side effects and complications, including, but not necessarily limited to, infection, allergic reaction, local tissue breakdown, nerve injury, paralysis, stroke and possible , the patient indicated that the patient understood and agreed to proceed. An informed consent document was signed by the patient, witnessed by a nurse, and placed in the patient's chart. After review of previous anaesthesic history and IV conscious sedation the patient was deemed safe to proceed with today's procedure with IV conscious sedation as ASA class II designation. Safety time-out was performed to confirm patient ID, procedure to be performed and site of procedure. IV sedation was accomplished with a combination of 2mg of Versed was administered by the RN after DO order, titrated to patient comfort during the course of the procedure while the patient remained responsive to all verbal commands In the prone position, following sterile prep and drape of the lumbar region, the right L3, L4 anatomical location of the medial branch of the dorsal ramus was identified fluoroscopically. Subsequently an anesthetic skin wheal using 1% lidocaine solution was initiated at each of the anatomical spots. Subsequently then a 22-gauge 3.5-inch spinal needle was atraumatically introduced and advanced under fluoroscopic guidance at each of the corresponding sites at the right L3, L4 MB. After negative aspiration, 0.2cc of Isovue 200 was injected, confirming placement without vascular or intrathecal uptake. Subsequently then 0.5cc of 0.5% Marcaine solution was injected at each of the corresponding sites at the right L3, L4 medial branch locations. The identical procedure was replicated on the left. The patient tolerated the procedure well without signs or symptoms of complications. The patient tolerated the procedure well without signs or symptoms of complications prior to transfer to the recovery area continued monitoring without incident. Post-procedure, the patient was monitored initiating provocative activities to measure the amount of relief from block of the facetogenic pain. The patient reported a VAS of 7 prior to the procedure and a post-procedure VAS of 1. It has been a pleasure to assist in the diagnostic and therapeutic care of your patient. POST OP INSTRUCTIONS The patient was provided with a Pain Log to complete over the next several hours and subsequent days prior to the patient's follow up with the ordering physician. If the patient has collection team lead relief to the solution applied, then they may be a candidate for medial branch rhizotomy. The patient is aware, was provided, once again, with a Pain Log and will follow up with the referring physician for review and clinical correlation
== END 2023-03-21 14:58 | disposition home or self-care (01) ==
PROVIDERS: Family Provider Family Medicine Sports Medicine; PCP Family Medicine Sports Medicine; Referring Provider Physical Medicine & Rehabilitation; Visit Provider Physical Medicine & Rehabilitation
DX: M47.816 Spondylosis without myelopathy or radiculopathy, lumbar region (principal)
CPT/HCPCS: 64493; 64494; 99152; J2250

== ENCOUNTER 2023-07-22 09:28 | Day surgery (SDC) | payer MEDICARE, OTHER, SELFPAY ==
--- NOTE | 2023-07-22 | PATH_ITS ---
[facility] Accession Number: [id number] No. of containers..02 Tissue . 01 Material submitted: . PART A: gastrointestinal site - GASTRIC POLYP PART B: esophagus - DISTAL ESOPHAGUS . 01 Diagnosis: A.GASTRIC POLYP, BIOPSY: - FUNDIC GLAND POLYP. - MILD FOCAL CHRONIC GASTRITIS. - NO H. PYLORI LIKE ORGANISMS IDENTIFIED (ON THE H/E-STAINED SECTIONS). - NEGATIVE FOR DYSPLASIA OR MALIGNANCY. --- B.DISTAL ESOPHAGUS, BIOPSY: - COLUMNAR EPITHELIUM WITH MILD CHRONIC INFLAMMATION, NEGATIVE FOR INTESTINAL METAPLASIA. - SQUAMOUS EPITHELIUM WITH NO INCREASED INTRAEPITHELIAL EOSINOPHILS. - NEGATIVE FOR DYSPLASIA OR MALIGNANCY. TXN 07/26/2023 1057 Local . 01 Electronically signed: . Tawfedeana Kaye MD, Pathologist NPI- [id number] . 01 Gross description: . Part A: GASTRIC POLYP: Received in formalin are 2 fragment(s) of torre, soft tissue measuring 0.1 x 0.1 x 0.1 cm to 0.2 x 0.2 x 0.2 cm submitted entirely in 1 cassette(s) Part B: DISTAL ESOPHAGUS: Received in formalin is 1 fragment(s) of torre, soft tissue measuring 0.3 x 0.2 x 0.2 cm submitted entirely in 1 cassette(s) /RACHEL 07/23/2023 2310 Local . 01 Pathologist provided ICD-10: K21.9 . 01 CPT . 888928, [id number] Specimen Comment: A courtesy copy of this report has been sent to [phone] Performed at: 01 [facility] [address] [place] [address] [address] [facility], [place], [place] [id number] MD Mychal Ritter MD Phone: [phone]
[2023-07-22 09:49] VITALS: BMI 22.4
[2023-07-22 10:06] VITALS: BP 115/71; PULSE 52; RESP 12; TEMP 36.1; O2SAT 95
[2023-07-22] MEDS: LACTATED RINGERS 1,000 ML 42 ML IV (10:07)
--- NOTE | 2023-07-22 10:40 | P.HP_ITS ---
History of Present Illness History of Present Illness Date Patient Seen: 07/22/23 Time Patient Seen: 10:40 Chief complaint: EGD Narrative: Here for Barretts surveillance. Reflux is under excellent control on omeprazole. [facility] Medical History Hip osteoarthritis URI (upper respiratory infection) Family History Father Pneumonia Mother Congestive heart failure Sister No problems noted. Social History household members: spouse Smoking Status: Former smoker alcohol intake: current Meds Home Medications and Allergies Home Medications Medication Instructions Recorded Confirmed Type aspirin 81 mg tablet,delayed 81 mg PO QDAY ##0 10/27/12 07/22/23 History release cholecalciferol (vitamin D3) 125 5,000 unit PO DAILY ##0 10/27/12 07/22/23 History mcg (5,000 unit) tablet (Vitamin D3) coenzyme Q10 100 mg capsule 200 mg PO DAILY ##0 10/27/12 07/22/23 History (CoQ-10) omeprazole 20 mg capsule,delayed 20 mg PO QDAY ##0 10/27/12 07/22/23 History release carisoprodol 350 mg tablet 350 mg PO DAILY #0 tabs 04/01/19 07/22/23 History clonazepam 0.5 mg tablet (Klonopin) 0.5 mg PO TID #0 tabs 04/01/19 07/22/23 History magnesium 200 mg tablet 200 mg PO DAILY 04/01/19 07/22/23 History zolpidem 12.5 mg tablet,extended See Rx Instructions PO HS 04/01/19 07/22/23 History release,multiphase (Ambien CR) omega 3 350 mg-dha 235 mg-epa 90 1 cap PO DAILY 11/10/19 07/22/23 History mg-fish oil 597 mg capsule,delay rel (Beverly-3) meloxicam 15 mg tablet 15 mg PO DAILY #90 tabs 04/18/20 07/22/23 Rx rosuvastatin 40 mg tablet 40 mg PO DAILY 02/13/22 07/22/23 History amlodipine 10 mg tablet 5 mg PO DAILY 11/21/22 07/22/23 History levothyroxine 75 mcg tablet 75 mcg PO DAILY 11/21/22 07/22/23 History benazepril 10 mg tablet 20 mg PO BID 04/22/23 07/22/23 History ketoconazole 2 % topical cream 1 applic topical DAILY PRN rash 04/22/23 07/22/23 History pramipexole 0.125 mg tablet 0.125 mg PO BEDTIME 04/22/23 07/22/23 History clonidine HCl 0.1 mg tablet 0.125 mg PO 3XD 07/22/23 07/22/23 History fenofibric acid 35 mg tablet 35 mg PO DAILY 07/22/23 07/22/23 History Allergies Allergy/AdvReac Type Severity Reaction Status Date / Time hydromorphone Allergy ITCHING Verified 07/22/23 09:44 oxycodone Allergy unsure Verified 07/22/23 09:44 phenytoin Allergy unsure Verified 07/22/23 09:44 pollen extracts Allergy Sneezing Verified 07/22/23 09:44 Exam Vital Signs (past 8 hours): - 07/22/23 10:06 Temperature 96.9 F L Pulse Rate 52 L Respiratory Rate 12 Blood Pressure 115/71 Pulse Oximetry 95 Oxygen Delivery Method Room Air Oxygen Delivery Method Room Air Const General: cooperative HENMT Head: normal to inspection Eyes General: appearance normal, both eyes and all related structures Neck Neck: normal visual inspection Chest Chest: normal inspection of the chest Resp Effort & Inspection: normal respiratory effort Cardio Rate: regular rate GI Inspection: normal to inspection Skin General: no rashes or lesions noted Neuro General: patient alert and patient awake Extrem General: normal to inspection and no pedal edema Psych Appearance: grossly normal Assessment & Plan Assessment & Plan narrative: 77-year-old male with a history of Barretts. EGD is pursued for surveillance today.
--- NOTE | 2023-07-22 10:41 | PM.PREOP ---
Pre-operative Note Interval Note History & Physical reviewed/Exam performed by Physician: Yes Changes to H&P: No ASA Class (for procedural sedation): III
[2023-07-22 10:58] VITALS: BP 132/75; PULSE 50; RESP 10; TEMP 36.2; O2SAT 91
--- NOTE | 2023-07-22 10:58 | PM.OP.EGD ---
Operative Date/Time/Diagnoses Date of procedure: 07/22/23 Time of procedure: 10:58 Pre-op diagnosis: Barretts Post-op diagnosis: same Procedure & Clinicians Study performed: EGD with biopsies Same procedure as scheduled: Yes Indications: Barretts Surgeon: Hernandez Padilla Procedure Notes SCOAP/Timeout: Done Procedure in detail: After the risks and benefits were explained, written and verbal informed consent was obtained. The patient was brought into the procedure room and placed into the left lateral decubitus position. Please see anesthesia notes for sedation details. The scope was introduced into the mouth through the bite block and advanced under direct visualization to the 2nd portion of the duodenum. The scope was slowly withdrawn carefully examining the mucosa for any defects or lesions. Retroflexed views were accomplished in the stomach. The stomach was decompressed, the scope was then removed from the patient who tolerated the procedure well. Sedation minutes: 6 Complications: none Impression: 1. Duodenal: No significant pathology from the bulb through to the 2nd portion. 2. Stomach: There were a couple of diminutive benign-appearing polyps in the fundus and proximal stomach. One of these was sampled for histopathologic analysis. Otherwise retroflexed views were unremarkable and no additional pathology throughout the stomach. 3. Esophagus: The squamocolumnar junction for the most part appeared to correlate with the top of the gastric folds. GEJ was at about 42 cm from the incisors. There was a small sliding hiatal hernia. The patient did have extension of the salmon-colored mucosa from stomach up into distal esophagus in the 7:00 a.m. location. I judged this to be C 0 M 0.5 Barretts. 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 The remainder of the esophagus appeared unremarkable. Endoscopic diagnosis 1. Diminutive gastric polyps 2. Small sliding hiatal hernia 3. C 0 M 0.5 Barretts Post-procedure Plan for aftercare: 1. Await histology. 2. Continue anti-reflux therapy. 3. Surveillance EGD is unlikely to be recommended moving forward. Disposition: PACU
[2023-07-22 11:03] VITALS: BP 134/76; PULSE 50; RESP 14; TEMP 36.2; O2SAT 92
[2023-07-22 11:08] VITALS: BP 144/79; PULSE 51; RESP 13; O2SAT 92
[2023-07-22 11:15] VITALS: BP 143/73; PULSE 59; RESP 16; O2SAT 98
== END 2023-07-22 11:30 | disposition home or self-care (01) ==
PROVIDERS: Family Provider Family Medicine Sports Medicine; PCP Family Medicine Sports Medicine; Referring Provider Internal Medicine Gastroenterology; Visit Provider Internal Medicine Gastroenterology
PROC: 0DJ08ZZ Inspection of Upper Intestinal Tract, Via Natural or Artificial Opening Endoscopic (ICD-10-PCS; CPT 43235; principal; 2023-07-22 10:30)
DX: K29.50 Unspecified chronic gastritis without bleeding (principal); Z87.19 Personal history of other diseases of the digestive system; K31.7 Polyp of stomach and duodenum; K44.9 Diaphragmatic hernia without obstruction or gangrene
CPT/HCPCS: 43239; J0171; J2704

== ENCOUNTER → 2023-09-02 10:53 | Outpatient (CLI) | payer MEDICARE, OTHER, SELFPAY | PROVIDERS: Family Provider Family Medicine Sports Medicine; PCP Family Medicine Sports Medicine; Referring Provider Internal Medicine Critical Care Medicine; Visit Provider Internal Medicine Critical Care Medicine | DX: R06.02 Shortness of breath (principal); Z87.891 Personal history of nicotine dependence; J98.8 Other specified respiratory disorders | CPT/HCPCS: 94060; 94726; 94729 ==

== ENCOUNTER → 2023-10-20 09:21 | Outpatient (CLI) | payer MEDICARE, OTHER, SELFPAY ==
[2023-10-20 10:06] LABS: Influenza A - CEPHEID Flu A NEGATIVE (NEGATIVE); Influenza B - CEPHEID Flu B NEGATIVE (NEGATIVE); Respiratory Syncytial Virus Negative (Negative)
[2023-10-20 10:13] LABS: COVID-19 CEPHEID 4-PLEX PCR POSITIVE (Negative)
== END ==
PROVIDERS: Family Provider Family Medicine Sports Medicine; PCP Family Medicine Sports Medicine; Visit Provider Nurse Practitioner Family
DX: R05.1 Acute cough (principal); J02.9 Acute pharyngitis, unspecified
CPT/HCPCS: 0241U; 87070

== ENCOUNTER → 2023-11-07 12:18 | Outpatient (CLI) | payer MEDICARE, OTHER, SELFPAY ==
--- NOTE | 2023-11-07 12:20 | DI.RAD.S_ITS ---
PROCEDURE: XR CHEST 2V INDICATIONS: cough TECHNIQUE: 2 views of the chest were acquired. COMPARISON: [facility], , XR CHEST 2V, 09/09/2019, 12:25. [facility], , CHEST 2 VIEW, 01/18/2017, 12:11. FINDINGS: Surgical changes and devices: None. Lungs and pleura: Lungs are clear. No pleural effusions or pneumothorax. Mediastinum: Mediastinal contours are normal. Heart size is normal. Bones and chest wall: No suspicious bony abnormalities. Soft tissues appear unremarkable. IMPRESSION: No acute cardiopulmonary abnormality. Dictated by: Juwan Sykes M.D. on 11/07/2023 at 13:27 Approved by: Juwan Sykes M.D. on 11/07/2023 at 13:28
== END ==
PROVIDERS: Family Provider Family Medicine Sports Medicine; PCP Family Medicine Sports Medicine; Referring Provider Internal Medicine Critical Care Medicine; Visit Provider Internal Medicine Critical Care Medicine
DX: I50.22 Chronic systolic (congestive) heart failure (principal); R06.02 Shortness of breath; R05.2 Subacute cough; Z86.16 Personal history of COVID-19
CPT/HCPCS: 71046; 99214

== ENCOUNTER → 2024-01-09 10:44 | Outpatient (CLI) | payer MEDICARE, OTHER, SELFPAY ==
--- NOTE | 2024-01-09 10:46 | DI.MRI.S_ITS ---
PROCEDURE: MR LUMBAR SPINE WO CON INDICATIONS: Low back pain, unspecified TECHNIQUE: Noncontrast sagittal T1 spin echo and T2 fast echo, sagittal STIR, and T2 fast spin echo through the lumbar spine. In cases with scoliosis, additional coronal T2 fast spin echo may be performed. COMPARISON: [facility], MR, MR LUMBAR SPINE WO CON, 12/13/2022, 11:05. FINDINGS: Image quality: Excellent. Alignment and Curvature: Unchanged alignment. Mild dextro curvature centered at L3. Trace anterolisthesis of T12 on L1. Trace retrolisthesis of L2 on L3. Bone Marrow: Marrow is of normal overall signal. No acute vertebral body compression fractures. Spinal Cord: Conus medullaris terminates at the L1 level. Visualized cord demonstrates normal signal and size. There is clumping of nerve roots in the thecal sac starting at L3-L4 and continuing inferiorly, consistent with arachnoiditis. These are unchanged findings. Paraspinous Soft Tissues: No paravertebral masses. T12-L1: Unchanged. Chronic disc height loss. Trace anterolisthesis of L2 on L3. Posterior disc bulge. Far right lateral disc protrusion. Facet hypertrophy. No canal stenosis. The disc protrusion on the right does not impinge on the exiting right T12 nerve root. L1-L2: Unchanged. Chronic disc height loss. Disc bulge. Facet hypertrophy. No significant canal stenosis or foraminal stenosis. L2-L3: Again noted is chronic severe disc height loss. Posterior osteophyte. Facet hypertrophy. No significant canal stenosis or foraminal stenosis. L3-L4: Unchanged. Chronic disc height loss. Posterior disc post osteophyte. Facet hypertrophy. Mild canal stenosis. Mild bilateral foraminal stenosis. L4-L5: Unchanged. Severe disc height loss. Posterior disc post osteophyte. Facet hypertrophy. Clumping of nerve roots. Mild canal stenosis. [id number]-[id number] right foraminal narrowing and mild left foraminal narrowing. L5-S1: Unchanged. Severe disc height loss. Posterior disc post osteophyte. Facet hypertrophy. Clumping of nerve roots. No central canal stenosis. Facet hypertrophy and a right foraminal disc bulge contributes to moderate to severe right foraminal narrowing and mild impingement on the exiting right L5 nerve root. IMPRESSION: 1. Lower lumbar clumping of nerve roots in the lumbar spine is consistent with arachnoiditis, unchanged. 2. Advanced degenerative disc space loss. 3. Multilevel underlying facet arthropathy. 4. There is mild canal stenosis at L4-L5. 5. Moderate to severe right foraminal narrowing at L5-S1 with a degree of right foraminal L5 nerve root impingement. 6. Findings are unchanged. Dictated by: Guerrero Porras M.D. on 01/09/2024 at 19:29 Approved by: Guerrero Porras M.D. on 01/09/2024 at 19:36
== END ==
LOC: MRI 10:45
PROVIDERS: Family Provider Family Medicine Sports Medicine; PCP Family Medicine Sports Medicine; Referring Provider Orthopaedic Surgery Orthopaedic Surgery of the Spine; Visit Provider Orthopaedic Surgery Orthopaedic Surgery of the Spine
DX: M47.816 Spondylosis without myelopathy or radiculopathy, lumbar region (principal); M47.817 Spondylosis without myelopathy or radiculopathy, lumbosacral region; M51.36 Other intervertebral disc degeneration, lumbar region; M51.37 Other intervertebral disc degeneration, lumbosacral region; M48.061 Spinal stenosis, lumbar region without neurogenic claudication; M48.07 Spinal stenosis, lumbosacral region; M54.50 Low back pain, unspecified
CPT/HCPCS: 72148

== ENCOUNTER → 2024-02-25 10:16 | Outpatient (CLI) | payer MEDICARE, OTHER, SELFPAY ==
[2024-02-25 11:45] LABS: Thyroid Stimulating Hormone 1.54 uIU/mL (0.47-4.68)
[2024-02-25 16:28] LABS: Free T4, Direct Thyroxine 1.27 ng/dL (0.78-2.19)
== END ==
PROVIDERS: Family Provider Family Medicine Sports Medicine; PCP Family Medicine Sports Medicine; Referring Provider Nurse Practitioner; Visit Provider Nurse Practitioner
DX: G93.31 Postviral fatigue syndrome (principal); E03.9 Hypothyroidism, unspecified
CPT/HCPCS: 36415; 84439; 84443; 84480

== ENCOUNTER → 2024-03-07 11:15 | Outpatient (CLI) | payer MEDICARE, OTHER, SELFPAY ==
--- NOTE | 2024-03-07 | DI.MRI.S_ITS ---
PROCEDURE: MR PELVIS WO CON INDICATIONS: COCCYDYNIA TECHNIQUE: Noncontrast axial and coronal T1 spin echo and STIR through the lumbosacral plexus region. Optional contrast may be given, followed by axial and coronal T1 spin echo with fat saturation through the sacral plexus. COMPARISON: None. FINDINGS: Image quality: Excellent. Lumbosacral plexus: Superior to the piriformis muscles, the pre-plexal structures appear normal, including the lumbosacral trunk and S1 root. Just anterior to the piriformis muscles, the sacral plexus proper demonstrates normal morphology (lumbosacral trunk, S1 to S3 nerve roots). Inferior to the piriformis muscles, the sciatic nerves appear normal. Soft tissues: The piriformis muscles appear symmetric in size. No presacral masses. Rectum appears normal in caliber and wall thickness. No pathologic free pelvic fluid. No visualized adenopathy by size criteria. Bones: Marrow is normal in overall signal. No insufficiency fractures. Mixed degenerative Modic changes at the endplates surrounding L5-S1. There is prominent right endplate osteophytosis. Severe disc height loss at this level. IMPRESSION: No abnormalities of the sacrococcygeal region. Dictated by: Alee Mai M.D. on 03/09/2024 at 8:12 Approved by: Alee Mai M.D. on 03/09/2024 at 8:24
== END ==
PROVIDERS: Family Provider Family Medicine Sports Medicine; PCP Family Medicine Sports Medicine; Referring Provider Orthopaedic Surgery Orthopaedic Surgery of the Spine; Visit Provider Orthopaedic Surgery Orthopaedic Surgery of the Spine
DX: M53.3 Sacrococcygeal disorders, not elsewhere classified (principal)
CPT/HCPCS: 72195

== ENCOUNTER → 2024-05-25 11:12 | Outpatient (CLI) | payer MEDICARE, OTHER, SELFPAY | LOC: RESP 11:12 | PROVIDERS: Family Provider Family Medicine Sports Medicine; PCP Family Medicine Sports Medicine; Referring Provider Internal Medicine Critical Care Medicine; Visit Provider Internal Medicine Critical Care Medicine | DX: R06.02 Shortness of breath (principal); Z87.891 Personal history of nicotine dependence; R94.2 Abnormal results of pulmonary function studies | CPT/HCPCS: 94010; 94726; 94729 ==

== ENCOUNTER → 2024-06-08 11:25 | Outpatient (CLI) | payer MEDICARE, OTHER, SELFPAY ==
[2024-06-08 12:42] LABS: Add Manual Diff / Slide Review NO; Basophils Absolute Auto 0 /uL (0-100); Basophils Percent Auto 0.7 % (0-2); Eosinophils Absolute Auto 100 /uL (0-450); Eosinophils Percent Auto 3.8 % (2-4); Hematocrit 44.1 % (41-53); Hemoglobin 14.8 g/dL (13.5-17.5); Lymphocytes Absolute Auto 900 /uL (1100-4500); Lymphocytes Percent Auto 26.4 % (25-40); Mean Corpuscular HGB Conc 33.6 % (30-36); Mean Corpuscular Hemoglobin 33.2 PG (26-34); Mean Corpuscular Volume 98.9 fL (80-100); Monocytes Absolute Auto 400 /uL (0-900); Monocytes Percent Auto 12.7 % (3-14); Neutrophils Absolute Auto 2000 /uL (1500-7000); Neutrophils Percent Auto 56.4 % (50-75); Platelet Count 137 X10^3/uL (150-400); Red Blood Cell Count 4.46 X10^6/uL (4.5-5.9); Red Cell Distribution Width 13.5 % (11.6-14.8); White Blood Cell Count 3.5 X10^3/uL (4.5-11.0)
[2024-06-08 12:51] LABS: Hemoglobin A1C% w Est Avg Glu 4.9 % (4.0-6.0)
[2024-06-08 13:13] LABS: Alanine Aminotransferase 24 IU/L (<50); Albumin 4.3 g/dL (3.5-5.0); Albumin Globulin Ratio 1.8 (1.0-2.8); Alkaline Phosphatase 75 U/L (38-126); Aspartate Aminotransferase 42 IU/L (17-59); Bilirubin Total 0.7 mg/dL (0.2-1.3); Blood Urea Nitrogen 18 mg/dL (9-20); C-Reactive Protein Quant 1.6 mg/dL (<1.0); Calcium 9.8 mg/dL (8.4-10.2); Carbon Dioxide 27 mmol/L (22-32); Chloride 108 mmol/L (98-107); Cholesterol 166 mg/dL (140-199); Creatine Kinase 59 U/L (55-170); Estimated Glomerular Filt Rate > 60 mL/min (>60); Globulin 2.4 g/dL (1.7-4.1); Glucose 94 mg/dL (80-110); HDL Cholesterol 74 mg/dL (40-60); HEMOLYSIS < 15 (0-50); LDL Cholesterol Calculated 81 mg/dL (<100); Potassium 4.2 mmol/L (3.4-5.1); Sodium 141 mmol/L (137-145); Total Protein 6.7 g/dL (6.3-8.2); Triglycerides 55 mg/dL (35-150); Uric Acid 4.4 mg/dL (3.5-8.5)
[2024-06-08 13:15] LABS: NT-proBNP (BNP-Adult 18+) 985 pg/mL (<450)
[2024-06-08 13:21] LABS: Free T3, Triiodothyronine Free 2.98 pg/mL (2.77-5.27); Free T4, Direct Thyroxine 1.08 ng/dL (0.78-2.19)
[2024-06-08 13:35] LABS: Thyroid Stimulating Hormone 0.796 uIU/mL (0.47-4.68)
[2024-06-08 14:12] LABS: Folate 15.9 ng/mL (2.76-20.0); Vitamin B12 822 pg/mL (239-931)
[2024-06-08 14:13] LABS: Creatinine Urine Random 205.22 mg/dL
[2024-06-08 14:15] LABS: Microalbumin Urine Random 2.7 mg/dL (0-1.6)
[2024-06-08 14:28] LABS: Vitamin D 25 Hydroxy (D3) 68.2 ng/mL (30.0-100.0)
[2024-06-09 03:39] LABS: Apolipoprotein A1 146 mg/dL (101-178)
[2024-06-09 07:36] LABS: Triiodothyronine T3 Total 62 ng/dL (71-180)
[2024-06-09 19:36] LABS: Anti Thyroglobulin Antibody <1.0 IU/mL (0.0-0.9); Thyroid Peroxidase Antibodies 22 IU/mL (0-34)
[2024-06-14 18:37] LABS: Triiodothyronine T3 Reverse 14.9 ng/dL (.)
== END ==
PROVIDERS: Family Provider Family Medicine Sports Medicine; PCP Family Medicine Sports Medicine; Referring Provider Nurse Practitioner; Visit Provider Family Medicine Sports Medicine
DX: I10 Essential (primary) hypertension (principal); R73.9 Hyperglycemia, unspecified; N40.0 Benign prostatic hyperplasia without lower urinary tract symptoms; E78.5 Hyperlipidemia, unspecified; G47.00 Insomnia, unspecified; I70.90 Unspecified atherosclerosis; R74.01 Elevation of levels of liver transaminase levels; E03.9 Hypothyroidism, unspecified; E29.1 Testicular hypofunction; R00.2 Palpitations; R79.89 Other specified abnormal findings of blood chemistry
CPT/HCPCS: 36415; 80053; 80061; 82043; 82172; 82306; 82550; 82570; 82607; 82746; 83036; 83880; 84439; 84443; 84480; 84481; 84482; 84484; 84550; 85025; 86140; 86376; 86800

== ENCOUNTER → 2024-06-25 10:45 | Outpatient (CLI) | payer MEDICARE, OTHER, SELFPAY ==
[2024-06-25 11:48] LABS: Appearance Urine UA CLEAR; Bilirubin Urine UA 1+ (NEGATIVE); Color Urine UA YELLOW; Glucose Urine UA NEGATIVE (Negative); Ketones Urine UA TRACE (NEGATIVE); Leukocyte Esterase Urine UA TRACE (NEGATIVE); Nitrite Urine UA NEGATIVE (Negative); Occult Blood Urine UA NEGATIVE (Negative); Protein Urine UA TRACE (Negative); Specific Gravity Urine UA >=1.030 (1.000-1.035); pH Urine UA 5.5 (4.5-8.0)
[2024-06-25 12:00] LABS: Bacteria Urine None Seen; Calcium Oxalate Crystals Urine Few; Ictotest Urine Negative (Negative); Mucus Urine 2+ (Negative); RBC Urine None Seen (0-5/HPF); Squamous Epithelial Cell Urine 1-5 /HPF (0-5/HPF); Urine Volume 10mL (spun); WBC Urine 5-10/HPF (0-5/HPF)
[2024-06-25 12:01] LABS: Culture Indicated Urine Specimen Cultured
== END ==
PROVIDERS: Family Provider Family Medicine Sports Medicine; PCP Family Medicine Sports Medicine; Referring Provider Family Medicine Sports Medicine; Visit Provider Family Medicine Sports Medicine
DX: N39.0 Urinary tract infection, site not specified (principal)
CPT/HCPCS: 81001; 87086

== ENCOUNTER → 2025-01-16 11:11 | Outpatient (CLI) | payer MEDICARE, OTHER, SELFPAY ==
--- NOTE | 2025-01-16 | DI.RAD.S_ITS ---
PROCEDURE: XR KNEE LT 3V INDICATIONS: PAIN TECHNIQUE: 3 views of the knee were acquired. COMPARISON: [facility], CR, XR KNEE ARTHRITIC SERIES RT, 08/12/2019, 12:41. [facility], CR, XR KNEE 1 OR 2 VIEWS RIGHT, 01/04/2020, 10:24. [facility], CR, XR KNEE RT 1TO2V, 01/16/2025, 12:18. FINDINGS AND IMPRESSION: The left knee arthroplasty in place, in expected position. Patellar resurfacing changes. No acute displaced fracture or dislocation. Vascular calcifications are seen If there is further concern, consider nuclear medicine bone scan or cross-sectional imaging. Dictated by: Dev Hodgson M.D. on 01/17/2025 at 6:49 Approved by: Dev Hodgson M.D. on 01/17/2025 at 6:52
--- NOTE | 2025-01-16 11:12 | DI.MRI.S_ITS ---
PROCEDURE: MR LUMBAR SPINE WO CON INDICATIONS: Low back pain TECHNIQUE: Noncontrast sagittal T1 spin echo and T2 fast echo, sagittal STIR, and T2 fast spin echo through the lumbar spine. In cases with scoliosis, additional coronal T2 fast spin echo may be performed. COMPARISON: [facility], MR, MR LUMBAR SPINE WO CON, 01/09/2024, 10:58. FINDINGS: Image quality: Excellent. Alignment and Curvature: Rightward scoliotic curvature with apex at L3. There is trace anterolisthesis of T12 on L1, trace retrolisthesis of L2 on L3, L3 on L4, L5 on S1. Minimal disc bulge with right lateral protrusion. No spinal stenosis. No nerve root compression. No gross foraminal narrowing. Bone Marrow: Marrow is of normal overall signal. Mild reactive endplate changes are present at T12-L1, L1-L2, L5-S1. No acute vertebral body compression fractures. Spinal Cord: Conus medullaris terminates at the L1 level. Visualized cord demonstrates normal signal and size. There is incidental note of persistent nerve root clumping most severe L4-5, L5-S1. It is unchanged. Paraspinous Soft Tissues: No paravertebral masses. Discs: Multilevel moderate to severe disc desiccation most significant at L2-3, L4-5, L5-S1. T12-L1: Mild disc bulge with right lateral protrusion. No spinal stenosis. Mild right foraminal narrowing. No nerve root compression. Facet and ligamentum flavum hypertrophy as well as epidural lipomatosis is present. No interval change. L1-L2: Mild disc bulge including right lateral protrusion. No significant spinal stenosis or foraminal narrowing. Facet and ligamentum flavum hypertrophy are present. No interval change. L2-L3: Mild disc bulge including a left lateral disc osteophyte complex. No nerve root compression. Minimal canal narrowing. No appreciable foraminal narrowing. Facet and ligamentum flavum hypertrophy are present. No interval change. L3-L4: Mild disc bulge with mild spinal stenosis. Mild bilateral foraminal narrowing with facet and ligamentum flavum hypertrophy. No interval change. L4-L5: Mild disc bulge with mild spinal stenosis. Plmr-ec-zbfbzomb bilateral, right greater than left foraminal narrowing with facet and ligamentum flavum hypertrophy. No interval change. L5-S1: Mild disc bulge with right lateral bulge. No spinal stenosis. Moderate to severe right foraminal narrowing with slight compression of the exiting L5 nerve root. Moderate left foraminal narrowing. IMPRESSION: Multilevel degenerative changes stable compared to prior exam. Unchanged appearance of clumping of the nerve roots in the lower lumbar spine. This can be seen with arachnoiditis. However, it is overall nonspecific. Dictated by: Patrizia Prieto M.D. on 01/18/2025 at 12:03 Approved by: Patrizia Prieto M.D. on 01/18/2025 at 12:22
--- NOTE | 2025-01-16 12:15 | DI.RAD.S_ITS ---
PROCEDURE: XR KNEE RT 1TO2V INDICATIONS: CHRONIC BI KNEE PAIN TECHNIQUE: 3 views of the knee were acquired. COMPARISON: [facility], CR, XR KNEE 1 OR 2 VIEWS RIGHT, 01/04/2020, 10:24. 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 A round lucency in the central tibial plateau is similar to prior, probably a bone cyst or geode. Vascular calcifications. If there is further concern, consider cross-sectional imaging or nuclear medicine bone scan. Dictated by: Dev Hodgson M.D. on 01/17/2025 at 6:53 Approved by: Dev Hodgson M.D. on 01/17/2025 at 6:54
--- NOTE | 2025-01-16 12:16 | DI.RAD.S_ITS ---
PROCEDURE: XR HIP W PEL IF DONE GIORGI MIN 4V INDICATIONS: BI HIP PAIN TECHNIQUE: AP pelvis with lateral view(s) of the bilateral hip(s). COMPARISON: [facility], CR, XR HIP W PEL IF DONE GIORGI 3TO4V, 11/16/2022, 10:26. [facility], CR, XR HIP W PEL IF DONE BILAT 2V, 01/19/2022, 10:44. [facility], CR, XR PELVIS 1 OR 2 VIEWS, 05/23/2023, 10:52. FINDINGS AND IMPRESSION: [id number]-ca-[id number] bilateral hip arthrosis, without significant progression. No acute displaced fracture or dislocation. Lumbosacral degenerative changes also present. Pelvic postsurgical clips. Moderate fecal loading. Vascular calcifications. If there is high concern for further derangement, consider MRI evaluation. Dictated by: Dev Hodgson M.D. on 01/17/2025 at 7:06 Approved by: Dev Hodgson M.D. on 01/17/2025 at 7:07
== END ==
PROVIDERS: Family Provider Family Medicine Sports Medicine; PCP Family Medicine Sports Medicine; Referring Provider Orthopaedic Surgery Orthopaedic Surgery of the Spine; Visit Provider Orthopaedic Surgery Orthopaedic Surgery of the Spine
DX: M47.817 Spondylosis without myelopathy or radiculopathy, lumbosacral region (principal); M47.816 Spondylosis without myelopathy or radiculopathy, lumbar region; M16.0 Bilateral primary osteoarthritis of hip; M25.561 Pain in right knee; M25.562 Pain in left knee; M25.551 Pain in right hip; M25.552 Pain in left hip; G89.29 Other chronic pain; Z96.653 Presence of artificial knee joint, bilateral
CPT/HCPCS: 72148; 73522; 73560; 73562

== ENCOUNTER → 2025-03-13 10:19 | Outpatient (CLI) | payer MEDICARE, OTHER, SELFPAY ==
--- NOTE | 2025-03-13 11:46 | DI.MRI.S_ITS ---
PROCEDURE: MR THORACIC SPINE WO CON INDICATIONS: SCS EVAL TECHNIQUE: Noncontrast sagittal T1 spine echo and T2 fast spin echo, sagittal STIR, and T2 fast spin echo through the thoracic spine. COMPARISON: None. FINDINGS: Image quality: Excellent. Alignment and Curvature: There is normal bony alignment. Bone Marrow: Marrow is of normal overall signal. No acute vertebral body compression fractures. Spinal Cord: Visualized spinal cord is normal in size and signal. Paraspinous Soft Tissues: No paravertebral masses. Miscellaneous: At the T6-T7 level there is a small left paracentral disc protrusion with indentation of the thecal sac but no spinal stenosis. At the T7-T8 level there is disc bulge without spinal stenosis. At the T8-T9 and T9-T10 levels there are small right paracentral protrusions, without spinal stenosis. At the T10-T11 level there is right paracentral, intra foraminal and lateral protrusion with mild central spinal stenosis as well as moderate right lateral recess and foraminal stenosis. At the T11-T12 level there is a large disc extrusion with superior migration in a posterior central and right paracentral location to the infrapedicular level. This measures 1.75 x 0.7 cm in transverse diameter and 1.85 cm in craniocaudal extent. There is associated moderate central spinal stenosis as well as severe right lateral recess stenosis, also mild to moderate right foraminal stenosis. IMPRESSION: 1. Large disc extrusion at T11-T12 with associated significant right lateral recess stenosis and moderate central spinal stenosis. 2. Other multilevel degenerative changes as above. No acute focal osseous lesion seen. Dictated by: Preston Hernandez M.D. on 03/14/2025 at 18:39 Approved by: Preston Hernandez M.D. on 03/14/2025 at 18:49
[2025-03-13 12:16] LABS: Cholesterol 163 mg/dL (140-199); HDL Cholesterol 72 mg/dL (40-60); LDL Cholesterol Calculated 82 mg/dL (<100); Triglycerides 46 mg/dL (35-150)
[2025-03-13 12:33] LABS: Free T3, Triiodothyronine Free 2.09 pg/mL (2.77-5.27); Free T4, Direct Thyroxine 1.64 ng/dL (0.78-2.19); T4 Total Thyroxine 7.16 ug/dL (5.5-11.0)
[2025-03-13 12:46] LABS: Thyroid Stimulating Hormone 0.745 uIU/mL (0.47-4.68)
[2025-03-15 06:10] LABS: CRP, High Sensitivity 6.84 mg/L (0.00-3.00)
[2025-03-22 16:36] LABS: Testosterone, Total 180.2 ng/dL (264.0-916.0); Testosterone,Free 1.7 pg/mL (6.6-18.1)
== END ==
PROVIDERS: Family Provider Family Medicine Sports Medicine; PCP Family Medicine Sports Medicine; Referring Provider Family Medicine Sports Medicine; Visit Provider Physician Assistant
DX: M47.896 Other spondylosis, lumbar region; M51.24 Other intervertebral disc displacement, thoracic region; M48.04 Spinal stenosis, thoracic region; E29.9 Testicular dysfunction, unspecified; I10 Essential (primary) hypertension; I70.90 Unspecified atherosclerosis; E03.9 Hypothyroidism, unspecified
CPT/HCPCS: 36415; 72146; 80061; 84402; 84403; 84436; 84439; 84443; 84481; 86140

== ENCOUNTER → 2025-09-07 11:25 | Outpatient (CLI) | payer MEDICARE, OTHER, SELFPAY | LOC: RESP 11:26 | PROVIDERS: Family Provider Family Medicine Sports Medicine; PCP Family Medicine Sports Medicine; Referring Provider Family Medicine Sports Medicine; Visit Provider Family Medicine Sports Medicine | DX: R06.02 Shortness of breath (principal); Z87.891 Personal history of nicotine dependence; R05.9 Cough, unspecified; R94.2 Abnormal results of pulmonary function studies | CPT/HCPCS: 94010; 94726; 94729 ==